=== PATIENT | female | born 1940 | race Caucasian/White ===

== ENCOUNTER 2018-06-20 15:05 | Emergency (ER) | payer OTHER, MEDICARE ==
--- OUTSIDE RECORDS SUMMARY | 2018-06-20 15:07 | XMS REPORT | Clinical Summary ---
:1940 Author Organization [facility] Address [address] [place] [address] Care Team Providers Name Role Phone Pedro Prajapati MD Primary Care Provider Allergies Active Allergy Reactions Severity Noted Date Comments Codeine 08/06/2016 Erythromycin 08/06/2016 Lisinopril 08/06/2016 Medications Medication Sig Dispensed Refills Start Date End Date Status ALPRAZolam (XANAX) 0.25 Take 0.25 mg 0 Active MG tablet by mouth nightly as needed for anxiety. PARoxetine (PAXIL) 20 MG 0 06/09/2018 Active tablet levothyroxine 0 04/10/2018 Active (SYNTHROID, LEVOXYL) 112 mcg tablet cholecalciferol, vitamin Take 1,000 0 Active D3, (VITAMIN D3) 1,000 Units by unit tablet mouth. aspirin (ECOTRIN) 81 MG Take 81 mg 0 Active enteric coated tablet by mouth. ascorbic acid, vitamin Take 1,000 0 Active C, (VITAMIN C) 1000 MG mg by mouth. tablet SILICON DIOXIDE, BULK, Take 1 0 Active MISC tablet by mouth. hydroCHLOROthiazide Take 1 90 tablet 3 06/09/2018 Active (HYDRODIURIL) 25 MG tablet (25 tablet mg total) by mouth daily. pravastatin (PRAVACHOL) Take 1 90 tablet 3 06/09/2018 Active 40 MG tablet tablet (40 mg total) by mouth daily. losartan (COZAAR) 100 MG Take 1 30 tablet 1 06/09/2018 06/09/20 Active tabletIndications: SOB tablet (100 19 (shortness of breath), mg total) by Coronary artery disease mouth daily. involving [place] coronary artery of [place] heart without angina pectoris ezetimibe (ZETIA) 10 mg Take 1 90 tablet 3 08/06/2016 06/09/20 Discontinued tablet tablet (10 18 mg total) by mouth daily. hydroCHLOROthiazide TAKE 1 90 tablet 3 03/31/2017 05/12/20 Discontinued (HYDRODIURIL) 25 MG TABLET BY 18 tablet MOUTH DAILY pravastatin (PRAVACHOL) TAKE 1 90 tablet 3 03/31/2017 05/12/20 Discontinued 40 MG tablet TABLET BY 18 MOUTH DAILY losartan (COZAAR) 50 MG TAKE 1 90 tablet 3 03/31/2017 04/27/20 Discontinued tablet TABLET BY 18 MOUTH DAILY losartan (COZAAR) 50 MG Take 1 30 tablet 0 04/27/2018 05/12/20 Discontinued tablet tablet (50 18 mg total) by mouth daily. losartan (COZAAR) 50 MG Take 1 30 tablet 0 05/12/2018 06/09/20 Discontinued tablet tablet (50 18 mg total) by mouth daily. pravastatin (PRAVACHOL) Take 1 30 tablet 0 05/12/2018 06/09/20 Discontinued 40 MG tablet tablet (40 18 mg total) by mouth daily. hydroCHLOROthiazide Take 1 30 tablet 0 05/12/2018 06/09/20 Discontinued (HYDRODIURIL) 25 MG tablet (25 18 tablet mg total) by mouth daily. losartan (COZAAR) 100 MG Take 1 90 tablet 3 06/09/2018 06/09/20 Discontinued tabletIndications: SOB tablet (100 18 (shortness of breath), mg total) by Coronary artery disease mouth daily. involving [place] coronary artery of [place] heart without angina pectoris Active Problems Problem Noted Date Coronary artery disease involving [place] coronary artery of [place] heart 06/09 without angina pectoris Hx of CABG 08/06/2016 Hyperlipidemia 08/06/2016 Essential hypertension 08/06/2016 SOB (shortness of breath) 08/06/2016 Encounters Date Type Specialty Care Team Description 06/09/2018 Office Visit Cardiology Donovan Romano MD Coronary artery disease involving [place] coronary artery of [place] heart without angina pectoris (Primary Dx); SOB (shortness of breath); Hx of CABG 05/12/2018 Refill Cardiology Aniyah Voss Med Refill LYNN 04/27/2018 Refill Cardiology Destiny Kendall MA Med Refill 04/27/2018 Refill Cardiology Destiny Kendall MA Med Refill after 06/19/2017 Family History Relation Name Status Comments Father Mother Social History Tobacco Use Types Packs/Day Years Used Date Former Smoker Smokeless Tobacco: Never Used Sex Assigned at Date Recorded Not on file Job Start Date Occupation Industry Not on file Not on file Not on file Travel History Travel Start Travel End No recent travel history available. Last Filed Vital Signs Vital Sign Reading Time Taken Blood Pressure 160/70 06/09/2018 3:34 PM COMMUNITY SERVICES COORDINATOR Pulse 67 06/09/2018 3:34 PM COMMUNITY SERVICES COORDINATOR Temperature - - Respiratory Rate - - Oxygen Saturation - - Inhaled Oxygen Concentration - - Weight 83.9 kg (185 lb) 06/09/2018 3:34 PM COMMUNITY SERVICES COORDINATOR Height 165.1 cm (5' 5") 06/09/2018 3:34 PM COMMUNITY SERVICES COORDINATOR Body Mass Index 30.79 06/09/2018 3:34 PM COMMUNITY SERVICES COORDINATOR Plan of Treatment Date Type Specialty Care Team Description 06/30/2018 Appointment Procedural Cardiology 12/08/2018 Office Visit Cardiology Donovan Romano MD [address] [address] Health Maintenance Due Date Last Done Comments SHINGLES VACCINES (1 of 2) 1991 PNEUMOCOCCAL POLYSACCHARIDE VACCINE AGE 65 AND OVER 2006 PNEUMOCOCCAL-13 2006 INFLUENZA VACCINE 01/21/2018 Procedures Procedure Name Priority Date/Time Associated Diagnosis Comments ECG 12-LEAD Routine 06/09/2018 3:34 PM SOB (shortness of Results for this COMMUNITY SERVICES COORDINATOR breath) procedure are in the results section. after 06/19/2017 Results ECG 12 lead (06/09/2018 3:34 PM COMMUNITY SERVICES COORDINATOR) Ventricular rate 64 [facility] Atrial rate 64 [facility] AL interval 142 [facility] QRSD interval 92 [facility] QT interval 396 [facility] QTC interval 408 [facility] P axis 1 70 [facility] QRS axis 1 36 [facility] T wave axis 78 [facility] MUSE EKG impression Normal sinus rhythm-Normal ECG-In automated [facility] M[facility] comparison with ECG of 06-AUG-2016 08:15,-No significant change was found- Narrative Performed At Performing Organization Address City/State/Zipcode Phone Number [facility] MUSE [address] [place] [address] after 06/19/2017 Insurance Payer Benefit Plan / Group Subscriber ID Type Phone Address AARP AARP SUPPLEMENT xxxxxxxxxxx Commercial MEDICARE MEDICARE PART A AND B xxxxxxxxxx Medicare [place] [place] [address] (Home) [address] [place] [address] Advance Directives Patient has advance care planning documents on file. For more information, please contact:Jewel Walker[address] [place] [address]
[2018-06-20 16:52] LABS: Urine Blood TRACE (NEG); Urine Glucose NEGATIVE (NEG); Urine Protein NEGATIVE (NEG)
--- NOTE | 2018-06-20 17:09 | RAD REPORT ---
EXAM DESCRIPTION: RAD - Chest Pa And Lat (2 Views) - 06/20/2018 5:03 pm CLINICAL HISTORY: Cough and congestion COMPARISON: July 2015 TECHNIQUE: PA and lateral views of the chest were obtained. FINDINGS: The lungs are fibrotic as a baseline. Plaquing changes are present similar to comparison. Interstitial disease is present and stable. Heart size is normal and central vasculature is within normal limits. No pleural effusion or pneumothorax seen. No acute bony finding noted. No aortic ab normality. IMPRESSION: Chronic pleural and parenchymal changes are present similar to July 2015. No acute chest finding confirmed.
--- NOTE | 2018-06-20 17:36 | EDPHYS ---
Physician Documentation [facility] Name: Edda Norwood Age: 78 yrs Sex: Female : 1940 Arrival Date: 06/20/2018 Time: 15:08 Bed 14 Private MD: Pedro Prajapati ED Physician Arelis Wooten HPI: 06/20 16:44 This 78 yrs old Female presents to ER via Ambulatory with complaints of Flu kb Symptoms. 16:44 The patient or guardian reports cough, that is intermittent, described as mild, with no kb sputum, flu symptoms, arthralgias, myalgias. Onset: The symptoms/episode began/occurred 3 day(s) ago. Severity of symptoms: At their worst the symptoms were moderate, in the emergency department the symptoms are unchanged. Modifying factors: The symptoms are alleviated by nothing, the symptoms are aggravated by nothing. Associated signs and symptoms: Pertinent positives: sore throat, "scratchy throat", Pertinent negatives: chest pain, diarrhea, ear ache, fever, nausea, sore throat, vomiting. The patient has not experienced similar symptoms in the past. The patient has been recently seen by a physician: the patient's primary care provider, 18 day(s) ago, with similar presenting complaints, and apparently given a diagnosis of Bronchitis and UTI, was given a prescription for antibiotics. 16:44 Pt reports body aches, soreness to sides of neck (no meningismus), cough, soreness, kb scratchy throat for 3 days. States she had same symptoms for approx 6 days at the beginning of the month, saw Dr Prajapati and was placed on Augmentin for 6 days for Bronchitis and UTI. Reports the symptoms resolved after the antibiotics but returned on . . Historical: - Allergies: 15:20 Erythromycin; sv - PMHx: 15:20 Hypertension; Thyroid problem; High Cholesterol; sv - PSHx: 15:20 Bypass; Hysterectomy; Thyroidectomy; sv - Immunization history:: Flu vaccine is up to date. - Social history:: Smoking status: Patient/guardian denies using tobacco. - Ebola Screening: : No symptoms or risks identified at this time. ROS: 16:43 ENT: Negative for injury, pain, and discharge, Neck: Negative for injury, pain, and kb swelling, Cardiovascular: Negative for chest pain, palpitations, and edema, Abdomen/GI: Negative for abdominal pain, nausea, vomiting, diarrhea, and constipation, Back: Negative for injury and pain, MS/Extremity: Negative for injury and deformity, Skin: Negative for injury, rash, and discoloration, Neuro: Negative for headache, weakness, numbness, tingling, and seizure. 16:43 Constitutional: Positive for body aches, malaise, Negative for chills, fatigue, fever, poor PO intake, weight loss. 16:43 Respiratory: Positive for cough, Negative for dyspnea on exertion, hemoptysis, orthopnea, pleurisy, shortness of breath, sputum production, wheezing. Exam: 16:43 Constitutional: This is a well developed, well nourished patient who is awake, alert, kb and in no acute distress. Head/Face: Normocephalic, atraumatic. ENT: Nares patent. No nasal discharge, no septal abnormalities noted. Tympanic membranes are normal and external auditory canals are clear. Oropharynx with no redness, swelling, or masses, exudates, or evidence of obstruction, uvula midline. Mucous membranes moist. Neck: Trachea midline, no thyromegaly or masses palpated, and no cervical lymphadenopathy. Supple, full range of motion without nuchal rigidity, or vertebral point tenderness. No Meningismus. Chest/axilla: Normal chest wall appearance and motion. Nontender with no deformity. No lesions are appreciated. Cardiovascular: Regular rate and rhythm with a normal S1 and S2. No gallops, murmurs, or rubs. Normal PMI, no JVD. No pulse deficits. Respiratory: Lungs have equal breath sounds bilaterally, clear to auscultation and percussion. No rales, rhonchi or wheezes noted. No increased work of breathing, no retractions or nasal flaring. Abdomen/GI: Soft, non-tender, with normal bowel sounds. No distension or tympany. No guarding or rebound. No evidence of tenderness throughout. Skin: Warm, dry with normal turgor. Normal color with no rashes, no lesions, and no evidence of cellulitis. MS/ Extremity: Pulses equal, no cyanosis. Neurovascular intact. Full, normal range of motion. Neuro: Awake and alert, GCS 15, oriented to person, place, time, and situation. Cranial nerves II-XII grossly intact. Motor strength 5/5 in all extremities. Sensory grossly intact. Cerebellar exam normal. Normal gait. Vital Signs: 15:20 BP 146 / 74; Pulse 74; Resp 18; Temp 98.5; Pulse Ox 99% ; Weight 81.65 kg; Height 5 ft. sv 6 in. (167.64 cm); Pain 5/10; 15:20 Body Mass Index 29.05 (81.65 kg, 167.64 cm) sv MDM: 16:12 Patient medically screened. kb 16:43 Data reviewed: vital signs, nurses notes. Data interpreted: Pulse oximetry: on room air kb is 99 %. Interpretation: normal. 17:11 Counseling: I had a detailed discussion with the patient and/or guardian regarding: the kb historical points, exam findings, and any diagnostic results supporting the discharge/admit diagnosis, lab results, radiology results, the need for outpatient follow up, a family practitioner, to return to the emergency department if symptoms worsen or persist or if there are any questions or concerns that arise at home. 17:27 ED course: Diagnostic results explained to patient, negative flu and strep tests, CXR kb showed no acute findings including pneumonia, urine test is negative for UTI. Based on HPI and physical exam, illness is viral in etiology. Pt asked "Are you going to do any blood work?" I educated pt that blood work was not clinically indicated based on exam findings, vital signs WNL, HPI and diagnostic results. Offered to do lab work, but pt stated "No, I will just go to my doctor." Pt seemed upset that labs were not completed, so I offered a second time to do them, but pt said no, told "let's just go," and walked out of ED. . 06/20 15:32 Order name: Influenza Screen (A ; Complete Time: 16:32 EDNJ 06/20 15:32 Order name: Group A Streptococcus Rapid Sc; Complete Time: 16:16 EDNJ 06/20 15:34 Order name: Urine Dipstick--Ancillary (enter results); Complete Time: 16:58 eb 06/20 16:16 Order name: Throat Culture EDNJ 06/20 15:40 Order name: Urine Dipstick-Ancillary (obtain specimen); Complete Time: 15:40 sv 06/20 16:29 Order name: Chest Pa And Lat (2 Views) XRAY; Complete Time: 17:11 kb Administered Medications: No medications were administered Disposition: 17:23 Co-signature as Attending Physician, Arelis Wooten MD. ma2 Disposition: 06/20/18 17:35 Discharged to Home. Impression: Acute upper respiratory infection, unspecified. - Condition is Stable. - Discharge Instructions: Upper Respiratory Infection, Adult, [id number]. - Medication Reconciliation Form, Thank You Letter, Antibiotic Education, Prescription Opioid Use form. - Follow up: Emergency Department; When: As needed; Reason: Worsening of condition. Follow up: Private Physician; When: 2 - 3 days; Reason: Recheck today's complaints, Continuance of care, Re-evaluation by your physician. Signatures: Dispatcher [employer] EDMS Hollie Mahajan, NICOLE-C ELEVATOR ADJUSTER-Kathy Love RN RN aj1 Azra Head RN RN sv Arelis Wooten MD MD ma2 Corrections: (The following items were deleted from the chart) 16:52 15:57 Influenza Screen (A \\T\\ B)+BA.LAB.BRZ ordered. EDMS EDMS 16:52 15:57 Group A Streptococcus Rapid Sc+BA.LAB.BRZ ordered. EDNJ EDMS 17:21 16:44 Associated signs and symptoms: Pertinent positives: sore throat, Pertinent kb negatives: chest pain, diarrhea, ear ache, fever, nausea, sore throat, vomiting, kb 17:21 16:44 The patient has not recently seen a physician, kb kb 17:37 17:35 06/20/2018 17:35 Discharged to Home. Impression: Acute upper respiratory aj1 infection, unspecified. Condition is Stable. Forms are Medication Reconciliation Form, Thank You Letter, Antibiotic Education, Prescription Opioid Use. Follow up: Emergency Department; When: As needed; Reason: Worsening of condition. Follow up: Private Physician; When: 2 - 3 days; Reason: Recheck today's complaints, Continuance of care, Re-evaluation by your physician. kb
--- NOTE | 2018-06-20 17:36 | ER ---
Nurse's Notes [facility] Name: Edda Norwood Age: 78 yrs Sex: Female : 1940 Arrival Date: 06/20/2018 Time: 15:08 Bed 14 Private MD: Pedro Prajapati Diagnosis: Acute upper respiratory infection, unspecified Presentation: 06/20 15:17 Presenting complaint: Patient states: sore throat, headache, fever, body and neck sv soreness, cough since . Transition of care: patient was not received from another setting of care. Onset of symptoms was June 18, 2018. Care prior to arrival: None. 15:17 Method Of Arrival: Ambulatory sv 15:17 Acuity: ARLETTE 3 sv 16:45 Risk Assessment: Do you want to hurt yourself or someone else? Patient reports no aj1 desire to harm self or others. Initial Sepsis Screen: Does the patient meet any 2 criteria? No. Patient's initial sepsis screen is negative. Does the patient have a suspected source of infection? Yes: Productive cough/pneumonia. Triage Assessment: 15:24 General: Appears in no apparent distress. ill, Behavior is calm, cooperative, sv appropriate for age. Pain: Complains of pain in "all over" Pain currently is 5 out of 10 on a pain scale. Quality of pain is described as sore. Neuro: Level of Consciousness is awake, alert, obeys commands, Oriented to person, place, time, situation, Moves all extremities. Full function. Respiratory: Reports cough that is non-productive, pain with cough Respiratory effort is even, unlabored, Respiratory pattern is regular, symmetrical. Historical: - Allergies: 15:20 Erythromycin; sv - PMHx: 15:20 Hypertension; Thyroid problem; High Cholesterol; sv - PSHx: 15:20 Bypass; Hysterectomy; Thyroidectomy; sv - Immunization history:: Flu vaccine is up to date. - Social history:: Smoking status: Patient/guardian denies using tobacco. - Ebola Screening: : No symptoms or risks identified at this time. Screenin:41 Abuse screen: Denies threats or abuse. Denies injuries from another. Nutritional aj1 screening: No deficits noted. Tuberculosis screening: No symptoms or risk factors identified. 17:35 Fall Risk None identified. aj1 Assessment: 16:41 General: Appears in no apparent distress. uncomfortable, Behavior is calm, cooperative, aj1 appropriate for age. Neuro: Level of Consciousness is awake, alert, obeys commands. Cardiovascular: Patient's skin is warm and dry. Respiratory: Reports cough that is Airway is patent Respiratory effort is even, unlabored, Respiratory pattern is. GI: No signs and/or symptoms were reported involving the gastrointestinal system. : No signs and/or symptoms were reported regarding the genitourinary system. Derm: No signs and/or symptoms reported regarding the dermatologic system. Skin is pink, warm \\T\\ dry. normal. Musculoskeletal: No signs and/or symptoms reported regarding the musculoskeletal system. Circulation, motion, and sensation intact. 17:34 Reassessment: Patient and her were seen walking out of the emergency room. aj1 Notified Sendy Mahajan NP. Vital Signs: 15:20 BP 146 / 74; Pulse 74; Resp 18; Temp 98.5; Pulse Ox 99% ; Weight 81.65 kg; Height 5 ft. sv 6 in. (167.64 cm); Pain 5/10; 15:20 Body Mass Index 29.05 (81.65 kg, 167.64 cm) sv ED Course: 15:08 Patient arrived in ED. sb2 15:09 Pedro Prajapati MD is Private Physician. sb2 15:19 Triage completed. sv 15:23 Arm band placed on Patient placed in waiting room, Patient notified of wait time. sv 16:12 Hollie Mahajan FNP-C is [facility]. kb 16:12 Arelis Wooten MD is Attending Physician. kb 16:16 Kathy Alejandra, RN is Primary Nurse. aj1 16:41 Patient has correct armband on for positive identification. Bed in low position. Call aj1 light in reach. Side rails up X 1. 16:41 No provider procedures requiring assistance completed. aj1 16:57 X-ray completed. Patient tolerated procedure well. sg4 16:57 Chest Pa And Lat (2 Views) XRAY In Process Unspecified. EDMS 17:35 Patient did not have IV access during this emergency room visit. aj1 Administered Medications: No medications were administered Outcome: 17:35 Discharge ordered by . kb 17:35 Discharged to home ambulatory, with family. aj1 17:35 Condition: good 17:35 Discharge instructions given to noone, patient walked out of ER prior to receiving discharge instructions 17:37 Patient left the ED. aj1 Signatures: Dispatcher [employer] EDHollie Shields, VIVEKC BEHAVIOR SUPPORT SPECIALIST-Kathy Love RN RN aj1 Azra Head RN RN sv Riri Dubon2 Vani Rowe sg4 Corrections: (The following items were deleted from the chart) 15:24 15:17 Presenting complaint: Patient states: sore throat, headache, body and neck sv soreness, cough since . sv
== END 2018-06-20 17:37 | disposition home or self-care (01) ==
LOC: ER 15:05
DX: J06.9 Acute upper respiratory infection, unspecified (principal); Z87.440 Personal history of urinary (tract) infections
CPT/HCPCS: 71046; 81003; 87070; 87081; 87804; 99283

== ENCOUNTER 2018-11-03 16:55 | Inpatient (IN) | payer OTHER, MEDICARE ==
--- OUTSIDE RECORDS SUMMARY | 2018-11-03 17:01 | XMS REPORT | Clinical Summary ---
:1940 Author Organization [facility] Address [address] [place] [address] Care Team Providers Name Role Phone Pedro [...] by Coronary artery disease mouth daily. involving [place] coronary artery of [place] heart without angina pectoris ezetimibe (ZETIA) 10 [...] by Coronary artery disease mouth daily. involving [place] coronary artery of [place] heart without angina pectoris Active Problems Problem Noted Date Coronary artery disease involving [place] coronary artery of [place] heart 06/09 without angina pectoris Hx of CABG 08/06/2016 Hyperlipidemia 08/06/2016 Essential hypertension 08/06/2016 SOB (shortness of breath) 08/06/2016 Encounters Date Type Specialty Care Team Description 07/06/2018 Orders Only Cardiology Donovan Romano MD 06/09/2018 Office Visit Cardiology Donovan Romano MD Coronary artery disease involving [place] coronary artery of [place] heart without angina pectoris (Primary Dx); SOB (shortness of breath); Hx of CABG 05/12/2018 Refill Cardiology Aniyah oVss Med Refill MA 04/27/2018 Refill Cardiology Destiny Kendall MA Med Refill 04/27/2018 Refill Cardiology Destiny Kendall MA Med Refill after 11/02/2017 Family History Relation Name Status Comments Father [...] Taken Blood Pressure 160/70 06/09/2018 3:34 PM SERVICE BAR CASHIER Pulse 67 06/09/2018 3:34 PM SERVICE BAR CASHIER Temperature - - Respiratory Rate - - Oxygen Saturation - - Inhaled Oxygen Concentration - - Weight 83.9 kg (185 lb) 06/09/2018 3:34 PM SERVICE BAR CASHIER Height 165.1 cm (5' 5") 06/09/2018 3:34 PM SERVICE BAR CASHIER Body Mass Index 30.79 06/09/2018 3:34 PM SERVICE BAR CASHIER Plan of Treatment Date Type Specialty Care Team Description 12/08/2018 Office Visit Cardiology Donovan Romano MD [address] [address] Health Maintenance Due Date Last Done Comments SHINGLES VACCINES (#1) 1991 65+ PNEUMOCOCCAL VACCINE (1 of 2 - PCV13) 2006 PNEUMOCOCCAL POLYSACCHARIDE VACCINE AGE 65 AND OVER 2006 INFLUENZA VACCINE 01/21/2019 Procedures Procedure Name Priority Date/Time Associated Comments Diagnosis NM MYOCARDIAL Routine 07/05/2018 PERFUSION ECG 12-LEAD Routine 06/09/2018 3:34 PM SOB (shortness of Results for this SERVICE BAR CASHIER breath) procedure are in the results section. after 11/02/2017 Results Nm myocardial perfusion (07/05/2018) Narrative Performed At ECG 12 lead (06/09/2018 3:34 PM SERVICE BAR CASHIER) Ventricular rate 64 [facility] Atrial rate 64 [facility] [place] interval 142 [facility] QRSD interval 92 [facility] QT interval 396 [facility] QTC interval 408 [facility] P axis 1 70 [facility] QRS axis 1 36 [facility] T wave axis 78 [facility] EKG impression Normal sinus rhythm-Normal ECG-In automated [facility] M[facility] comparison with ECG of 06-AUG-2016 08:15,-No significant change was found- Narrative Performed At Performing Organization Address City/State/Zipcode Phone Number [facility] MUSE [address] [place] [address] after 11/02/2017 Insurance Payer Benefit Plan / Group Subscriber ID Type Phone Address AARP AARP SUPPLEMENT xxxxxxxxxxx Commercial MEDICARE MEDICARE PART A AND B xxxxxxxxxx Medicare [place] [place] [address] (Home) [address] [place] [address] Advance Directives Patient has advance care planning documents on file. For more information, please contact:Jewel Walker[address] [place] [address]
--- NOTE | 2018-11-03 18:13 | EDPHYS ---
Physician Documentation [facility] Name: Edda Norwood Age: 78 yrs Sex: Female : 1940 Arrival Date: 11/03/2018 Time: 16:57 Bed 30 Private MD: Pedro Prajapati ED Physician Oleg Mccormick HPI: 11/03 17:36 This 78 yrs old Female presents to ER via Ambulatory with complaints of jaswant Cough, Shortness Of Breath. 17:36 The patient or guardian reports cough, described as mild, difficulty breathing. Onset: jaswant The symptoms/episode began/occurred 1 month(s) ago. Severity of symptoms: At their worst the symptoms were mild, moderate, in the emergency department the symptoms are unchanged. Modifying factors: The symptoms are alleviated by nothing, the symptoms are aggravated by nothing. Associated signs and symptoms: The patient has no apparent associated signs or symptoms. The patient has not experienced similar symptoms in the past. Historical: - Allergies: 17:07 Erythromycin; aj1 - PMHx: 17:07 High Cholesterol; Hypertension; Thyroid problem; aj1 - Immunization history:: Flu vaccine is up to date. - Social history:: Smoking status: Patient/guardian denies using tobacco. - Ebola Screening: : Patient denies travel to an Ebola-affected area in the 21 days before illness onset. - Family history:: not pertinent. ROS: 17:36 Constitutional: Negative for fever, chills, and weight loss, Eyes: Negative for injury, jaswant pain, redness, and discharge, ENT: Negative for injury, pain, and discharge, Neck: Negative for injury, pain, and swelling, Cardiovascular: Negative for chest pain, palpitations, and edema, Abdomen/GI: Negative for abdominal pain, nausea, vomiting, diarrhea, and constipation, Back: Negative for injury and pain, : Negative for injury, bleeding, discharge, and swelling, MS/Extremity: Negative for injury and deformity, Skin: Negative for injury, rash, and discoloration, Neuro: Negative for headache, weakness, numbness, tingling, and seizure, Psych: Negative for depression, anxiety, suicide ideation, homicidal ideation, and hallucinations, Allergy/Immunology: Negative for hives, rash, and allergies, Endocrine: Negative for neck swelling, polydipsia, polyuria, polyphagia, and marked weight changes, Hematologic/Lymphatic: Negative for swollen nodes, abnormal bleeding, and unusual bruising. 17:36 Respiratory: Positive for cough, shortness of breath, wheezing, expiratory. Exam: 17:36 Constitutional: This is a well developed, well nourished patient who is awake, alert, jaswant and in no acute distress. Head/Face: Normocephalic, atraumatic. Eyes: Pupils equal round and reactive to light, extra-ocular motions intact. Lids and lashes normal. Conjunctiva and sclera are non-icteric and not injected. Cornea within normal limits. Periorbital areas with no swelling, redness, or edema. ENT: Nares patent. No nasal discharge, no septal abnormalities noted. Tympanic membranes are normal and external auditory canals are clear. Oropharynx with no redness, swelling, or masses, exudates, or evidence of obstruction, uvula midline. Mucous membranes moist. Neck: Trachea midline, no thyromegaly or masses palpated, and no cervical lymphadenopathy. Supple, full range of motion without nuchal rigidity, or vertebral point tenderness. No Meningismus. Chest/axilla: Normal chest wall appearance and motion. Nontender with no deformity. No lesions are appreciated. Cardiovascular: Regular rate and rhythm with a normal S1 and S2. No gallops, murmurs, or rubs. Normal PMI, no JVD. No pulse deficits. Abdomen/GI: Soft, non-tender, with normal bowel sounds. No distension or tympany. No guarding or rebound. No evidence of tenderness throughout. Back: No spinal tenderness. No costovertebral tenderness. Full range of motion. Female : Normal external genitalia. Skin: Warm, dry with normal turgor. Normal color with no rashes, no lesions, and no evidence of cellulitis. MS/ Extremity: Pulses equal, no cyanosis. Neurovascular intact. Full, normal range of motion. Neuro: Awake and alert, GCS 15, oriented to person, place, time, and situation. Cranial nerves II-XII grossly intact. Motor strength 5/5 in all extremities. Sensory grossly intact. Cerebellar exam normal. Normal gait. Psych: Awake, alert, with orientation to person, place and time. Behavior, mood, and affect are within normal limits. 17:36 Respiratory: mild respiratory distress is noted, Respirations: labored breathing, that is mild, Breath sounds: bronchial sounds, that are mild, decreased breath sounds, rhonchi. 17:40 Musculoskeletal/extremity: DVT Exam: No signs of deep vein thrombosis. no pain, no jaswant swelling, no tenderness, negative Homans' sign noted on exam, no appreciated bluish discoloration, no erythema, no increased warmth. Vital Signs: 17:07 BP 146 / 87; Pulse 76; Resp 18; Temp 98.2(TE); Pulse Ox 96% on R/A; Weight 90.26 kg aj1 (R); Height 5 ft. 5 in. (165.10 cm) (R); Pain 0/10; 18:10 BP 124 / 52; Pulse 75; Resp 16 S; Pulse Ox 95% on Nebulizer Mask; ca1 18:45 BP 123 / 54; Pulse 78; Resp 14; Pulse Ox 92% on R/A; ca1 19:10 BP 124 / 55; Pulse 78; Resp 16; Temp 98.2(O); Pulse Ox 96% on R/A; ca1 19:37 BP 127 / 53; Pulse 81; Resp 16 S; Temp 98.1(O); Pulse Ox 100% on Nebulizer Mask; ca1 17:07 Body Mass Index 33.11 (90.26 kg, 165.10 cm) aj1 MDM: 17:17 Patient medically screened. [facility] 17:40 Data reviewed: vital signs, nurses notes, lab test result(s), EKG, radiologic studies, [facility] plain films. 11/03 17:35 Order name: Basic Metabolic Panel [facility] 11/03 17:35 Order name: CBC with Diff [facility] 11/03 17:35 Order name: LFT's; Complete Time: 18:41 [facility] 11/03 17:35 Order name: Magnesium; Complete Time: 18:41 [facility] 11/03 17:35 Order name: NT PRO-BNP; Complete Time: 18:41 [facility] 11/03 17:35 Order name: PT-INR; Complete Time: 18:41 [facility] 11/03 17:35 Order name: Troponin (emerg Dept Use Only); Complete Time: 18:41 [facility] 11/03 17:35 Order name: Lipase; Complete Time: 18:41 [facility] 11/03 17:35 Order name: Blood Culture Adult (2) [facility] 11/03 17:35 Order name: Influenza Screen (a \T\ B); Complete Time: 18:41 [facility] 11/03 17:35 Order name: Urine Culture 11/03 17:35 Order name: Procalcitonin; Complete Time: 19:22 [facility] 11/03 17:36 Order name: Basic Metabolic Panel; Complete Time: 18:41 [facility] 11/03 17:36 Order name: CBC with Automated Diff; Complete Time: 18:41 [facility] 11/03 17:35 Order name: XRAY Chest (1 view); Complete Time: 19:22 [facility] 11/03 17:35 Order name: EKG; Complete Time: 17:37 [facility] 11/03 17:35 Order name: Cardiac monitoring; Complete Time: 18:54 [facility] 11/03 17:35 Order name: EKG - Nurse/Tech; Complete Time: 18:54 [facility] 11/03 17:35 Order name: IV Saline Lock; Complete Time: 18:58 [facility] 11/03 17:35 Order name: Labs collected and sent; Complete Time: 18:58 [facility] 11/03 17:35 Order name: O2 Per Protocol; Complete Time: 18:58 [facility] 11/03 18:11 Order name: CT Chest For PE Angio [facility] 11/03 18:21 Order name: TSH bd 11/03 18:31 Order name: Urine Dipstick--Ancillary (enter results) 11/03 18:37 Order name: Urine Dipstick-Ancillary; Complete Time: 18:41 [facility] 11/03 19:31 Order name: CT; Complete Time: 19:34 [facility] 11/03 17:35 Order name: O2 Sat Monitoring; Complete Time: 18:58 [facility] 11/03 17:35 Order name: Urine Dipstick-Ancillary (obtain specimen); Complete Time: 18:58 [facility] Administered Medications: 17:58 Drug: SOLU-Medrol 125 mg Route: IVP; Site: right antecubital; ca1 19:39 Follow up: Response: No adverse reaction; Marked relief of symptoms ca1 17:58 Drug: Xopenex 3.75 mg Route: Inhalation; ca1 18:13 Drug: levofloxacin 500 mg Volume: 100 ml; Route: IVPB; Infused Over: 60 mins; Site: ca1 right antecubital; 19:39 Follow up: Response: No adverse reaction; IV Status: Completed infusion; IV Intake: aj 100ml 19:40 Follow up: Response: No adverse reaction; IV Status: Completed infusion ca1 18:50 Drug: AtroVENT Aerosol 0.5 mg Route: Inhalation; ca1 19:32 Drug: AtroVENT Aerosol 0.5 mg Route: Inhalation; aj Disposition: 11/03/18 18:13 Hospitalization ordered by Pedro Prajapati for Inpatient Admission. Preliminary diagnosis are Cough, Dyspnea, Weakness, Malaise and fatigue. - Bed requested for Telemetry/MedSurg (Inpatient). - Status is Inpatient Admission. ca1 - Condition is Fair. - Problem is new. - Symptoms have improved. UTI on Admission? No Signatures: Dispatcher [employer] EDMS Kathy Alejandra RN RN aj1 Lennie Duff RN RN dw Myers, Amanda, RN RN aj Anderson, Corey, MD MD cha Acob, Cheryl, RN RN ca1 Corrections: (The following items were deleted from the chart) 18:48 18:13 Hospitalization Ordered by Pedro Prajapati MD for Inpatient Admission. Preliminary dw diagnosis is Cough; Dyspnea; Weakness; Malaise and fatigue. Bed requested for Telemetry/MedSurg (Inpatient). Status is Inpatient Admission. Condition is Fair. Problem is new. Symptoms have improved. UTI on Admission? No. jaswant 20:08 18:48 11/03/2018 18:13 Hospitalization Ordered by Pedro Prajapati MD for Inpatient dw Admission. Preliminary diagnosis is Cough; Dyspnea; Weakness; Malaise and fatigue. Bed requested for Telemetry/MedSurg (Inpatient). Status is Inpatient Admission. Condition is Fair. Problem is new. Symptoms have improved. UTI on Admission? No. dw 20:16 20:08 11/03/2018 18:13 Hospitalization Ordered by Pedro Prajapati MD for Inpatient ca1 Admission. Preliminary diagnosis is Cough; Dyspnea; Weakness; Malaise and fatigue. Bed requested for Telemetry/MedSurg (Inpatient). Status is Inpatient Admission. Condition is Fair. Problem is new. Symptoms have improved. UTI on Admission? No. dw
--- NOTE | 2018-11-03 18:13 | ER ---
Nurse's Notes [facility] Name: Edda Norwood Age: 78 yrs Sex: Female : 1940 Arrival Date: 11/03/2018 Time: 16:57 Bed 30 Private MD: Pedro Prajapati Diagnosis: Cough;Dyspnea;Weakness;Malaise and fatigue Presentation: 11/03 17:04 Presenting complaint: Patient states: "I've had a cough for at least 2 months and I am aj1 so tired, and it doesn't get any better. I get shortness of breath and sweat like a dog. If I do anything I'm just sweating or it wakes me up at night, and I just don't feel good. I feel like I'm weak and I just want to lay down. I went to Dr. Prajapati a month ago and told him I wasn't feeling good and he told me to take Zyrtec and I take it everyday abut Im still not better" Reports shortness of breath after a coughing spell or after walking. Transition of care: patient was not received from another setting of care. Onset of symptoms was August 2018. Risk Assessment: Do you want to hurt yourself or someone else? Patient reports no desire to harm self or others. Initial Sepsis Screen: Does the patient meet any 2 criteria? No. Patient's initial sepsis screen is negative. Does the patient have a suspected source of infection? No. Patient's initial sepsis screen is negative. Care prior to arrival: None. 17:04 Method Of Arrival: Ambulatory aj1 17:04 Acuity: ARLETTE 3 aj1 Triage Assessment: 17:07 General: Appears in no apparent distress. uncomfortable, Behavior is calm, cooperative, aj1 appropriate for age. Pain: Denies pain. Neuro: Level of Consciousness is awake, alert, obeys commands. Cardiovascular: Patient's skin is warm and dry. Respiratory: Reports shortness of breath on exertion Airway is patent Respiratory effort is even, unlabored, Respiratory pattern is regular, symmetrical, Onset: The symptoms/episode began/occurred 2 months ago, the patient has mild shortness of breath. Historical: - Allergies: 17:07 Erythromycin; aj1 - PMHx: 17:07 High Cholesterol; Hypertension; Thyroid problem; aj1 - Immunization history:: Flu vaccine is up to date. - Social history:: Smoking status: Patient/guardian denies using tobacco. - Ebola Screening: : Patient denies travel to an Ebola-affected area in the 21 days before illness onset. - Family history:: not pertinent. Screenin:15 Abuse screen: Denies threats or abuse. Denies injuries from another. Nutritional ca1 screening: No deficits noted. Tuberculosis screening: No symptoms or risk factors identified. Fall Risk IV access (20 points). Assessment: 17:15 General: Appears in no apparent distress. comfortable, Behavior is calm, cooperative, ca1 appropriate for age. General: Reports feeling ill for > 3 days. Pain: Denies pain. Neuro: Level of Consciousness is awake, alert, obeys commands, Oriented to person, place, time, situation. Cardiovascular: Heart tones S1 S2 present Capillary refill < 3 seconds Patient's skin is warm and dry. Rhythm is sinus rhythm. Respiratory: Reports shortness of breath on exertion since several weeks ago cough that is since 2 months ago Airway is patent Respiratory effort is even, unlabored, Respiratory pattern is regular, symmetrical, Breath sounds are clear bilaterally. GI: Abdomen is round non-distended, Bowel sounds present X 4 quads. Abd is soft and non tender X 4 quads. : No deficits noted. No signs and/or symptoms were reported regarding the genitourinary system. EENT: Reports nasal congestion. Derm: Skin is intact, is healthy with good turgor, Skin is pink, warm \\T\\ dry. Musculoskeletal: Circulation, motion, and sensation intact. Capillary refill < 3 seconds, Range of motion: intact in all extremities. 18:10 Reassessment: Patient appears in no apparent distress at this time. Patient and/or ca1 family updated on plan of care and expected duration. Pain level reassessed. Patient is alert, oriented x 3, equal unlabored respirations, skin warm/dry/pink. 19:00 Reassessment: Patient appears in no apparent distress at this time. Patient is alert, ca1 oriented x 3, equal unlabored respirations, skin warm/dry/pink. 19:44 Reassessment: Patient appears in no apparent distress at this time. Patient is alert, ca1 oriented x 3, equal unlabored respirations, skin warm/dry/pink. Vital Signs: 17:07 BP 146 / 87; Pulse 76; Resp 18; Temp 98.2(TE); Pulse Ox 96% on R/A; Weight 90.26 kg aj1 (R); Height 5 ft. 5 in. (165.10 cm) (R); Pain 0/10; 18:10 BP 124 / 52; Pulse 75; Resp 16 S; Pulse Ox 95% on Nebulizer Mask; ca1 18:45 BP 123 / 54; Pulse 78; Resp 14; Pulse Ox 92% on R/A; ca1 19:10 BP 124 / 55; Pulse 78; Resp 16; Temp 98.2(O); Pulse Ox 96% on R/A; ca1 19:37 BP 127 / 53; Pulse 81; Resp 16 S; Temp 98.1(O); Pulse Ox 100% on Nebulizer Mask; ca1 17:07 Body Mass Index 33.11 (90.26 kg, 165.10 cm) aj1 ED Course: 16:57 Patient arrived in ED. mr 16:57 Pedro Prajapati MD is Private Physician. mr 17:06 Triage completed. aj1 17:07 Arm band placed on Patient placed in an exam room. aj1 17:15 Patient has correct armband on for positive identification. Placed in gown. Bed in low ca1 position. Call light in reach. Side rails up X 1. monitor technician on. Pulse ox on. NIBP on. Warm blanket given. 17:17 Oleg Mccormick MD is Attending Physician. jaswant 17:34 Jennifer Rizzo, PATIENCE is Primary Nurse. ca1 17:50 Inserted saline lock: 20 gauge in right antecubital area, using aseptic technique. ca1 Blood collected. 17:50 First set of blood cultures drawn by me. ca1 17:52 XRAY Chest (1 view) In Process Unspecified. EDMS 18:10 Second set of blood cultures drawn by me. ca1 18:11 Pedro Prajapati MD is Hospitalizing Provider. jaswant 18:14 Radiology exam delayed due to lab results not completed at this time. (BUN/Creatinine). vm2 19:00 No provider procedures requiring assistance completed. Patient admitted, IV remains in ca1 place. Administered Medications: 17:58 Drug: SOLU-Medrol 125 mg Route: IVP; Site: right antecubital; ca1 19:39 Follow up: Response: No adverse reaction; Marked relief of symptoms ca1 17:58 Drug: Xopenex 3.75 mg Route: Inhalation; ca1 18:13 Drug: levofloxacin 500 mg Volume: 100 ml; Route: IVPB; Infused Over: 60 mins; Site: ca1 right antecubital; 19:39 Follow up: Response: No adverse reaction; IV Status: Completed infusion; IV Intake: aj 100ml 19:40 Follow up: Response: No adverse reaction; IV Status: Completed infusion ca1 18:50 Drug: AtroVENT Aerosol 0.5 mg Route: Inhalation; ca1 19:32 Drug: AtroVENT Aerosol 0.5 mg Route: Inhalation; aj Intake: 19:39 IV: 100ml; Total: 100ml. aj Outcome: 18:13 Decision to Hospitalize by Provider. jaswant 19:50 Admitted to Tele accompanied by tech, via wheelchair, room 408, on monitor, Report ca1 called to Derrick Greenwood RN 19:50 Condition: stable ca1 19:50 Instructed on the need for admit. 20:16 Patient left the ED. ca1 Signatures: Dispatcher [employer] EDKathy Valverde RN RN aj1 Myers, Amanda, RN RN aj Anderson, Corey, MD MD cha Rivera, Mary mr McGuire, [facility] Jennifer Rizzo RN RN ca1 Corrections: (The following items were deleted from the chart) 18:37 17:15 Cardiovascular: Heart tones S1 S2 present Capillary refill < 3 seconds Patient's ca1 skin is warm and dry. ca1 18:37 18:36 Reassessment: Patient appears in no apparent distress at this time. ca1 ca1
[2018-11-03 18:17] LABS: Absolute Lymphocytes (CBC) 2.2 K/uL (0.7-4.9); Absolute Monocytes 0.6 K/uL (0.1-1.3); Basophils % 0.8 % (0-1.3); Eosinophils % 7.6 % (0-4.4); Hematocrit 41.8 % (36.0-45.0); Lymphocytes % 35.4 % (15.3-44.8); MPV 9.1 fL (7.6-11.3); Monocytes % 9.1 % (3.3-12.3); Protime INR 0.98; RBC Red Blood Cell Count 4.55 M/uL (3.86-4.86)
[2018-11-03] MEDS ORDERED: IPRATROPIUM BROM 0.5MG/2.5ML ONE (18:27)
[2018-11-03] MEDS ORDERED: METHYLPREDNISOLONE 125 MG INJ ONE (18:27)
[2018-11-03] MEDS ORDERED: LEVALBUTEROL 1.25 MG/3 ML NEB ONE (18:28)
[2018-11-03] MEDS ORDERED: Levofloxacin500mg IV 500 MG/100 ML BAG IV ONE (18:28)
[2018-11-03 18:37] LABS: Urine Blood 1+ (NEG); Urine Glucose NEGATIVE (NEG); Urine Protein NEGATIVE (NEG); Urine pH 5.5 (5.0-7.0)
[2018-11-03 18:40] LABS: ALT/SGPT 24 U/L (12-78); AST/SGOT 16 U/L (15-37); Albumin 3.8 g/dL (3.4-5.0); Alkaline Phosphatase 75 U/L (45-117); BUN Blood Urea Nitrogen 27 mg/dL (7-18); Bicarbonate 28 mmol/L (21-32); Bilirubin Direct < 0.1 mg/dL (0-0.2); Bilirubin Total 0.4 mg/dL (0.2-1.0); Glucose Level 142 mg/dL (74-106); Lipase 151 U/L (73-393); Magnesium 2.2 mg/dL (1.8-2.4); NT PRO-BNP 282 pg/mL (<450); Potassium 3.9 mmol/L (3.5-5.1); Protein, Total 7.6 g/dL (6.4-8.2); Sodium Level 141 mmol/L (136-145); Troponin (Emerg Dept Use Only) < 0.02 ng/mL (0.0-0.045)
--- NOTE | 2018-11-03 18:42 | RAD REPORT ---
EXAM DESCRIPTION: RAD - Chest Single View - 11/03/2018 5:52 pm CLINICAL HISTORY: Cough and congestion COMPARISON: May 2018 TECHNIQUE: AP portable chest image was obtained 1749 hours . FINDINGS: No focal lung parenchymal process seen. Interstitial pattern is prominent but not clearly different from comparison. Right hemidiaphragm elevation again noted. Sternotomy wires remain place. Heart and vasculature are normal. No measurable pleural effusion and no pneumothorax. No acute bony a bnormality seen. No acute aortic findings suspected. IMPRESSION: No acute cardiopulmonary process. No significant change from comparison.
--- NOTE | 2018-11-03 19:30 | RAD REPORT ---
EXAM DESCRIPTION: CT - Chest For Pe Angio - 11/03/2018 7:11 pm CLINICAL HISTORY: Cough, shortness of breath, hypertension, chest pain COMPARISON: Chest film same date TECHNIQUE: Dynamically enhanced 3 mm thick images of the chest were obtained during administration o f approximately 150mL Isovue 370 IV contrast. Coronal and oblique MIP reconstruction images were gene rated and reviewed. Exam utilizes a protocol to evaluate the pulmonary arterial tree. All CT scans are performed using dose optimization technique as appropriate and may include automated exposure control or mA/KV adjustment according to patient size. FINDINGS: No pulmonary emboli are identified. Motion degradation limits far peripheral branch assess ment in each lung base. The aorta as imaged shows no acute or suspicious finding. No pericardial thickening or effusion. No mass or focal consolidation identified. Interstitial markings are prominent. Pleural nodularity in calcified pleural plaquing changes are present. No one large or dominant pleural based mass. No pleu ral effusion or pleural thickening. No mediastinal or hilar suspicious masses. No chest wall masses or abnormal axillary lymphadenopathy. IMPRESSION: No pulmonary emboli identified. Calcified and noncalcified pleural plaquing. No one dominant pleural based mass seen.
[2018-11-03] MEDS ORDERED: FAMOTIDINE 20 MG/2 ML VIAL IV SCH (21:14)
[2018-11-03] MEDS ORDERED: ONDANSETRON 4 MG/2 ML VIAL IV PRN (21:14)
[2018-11-03] MEDS ORDERED: MORPHINE 4 MG/ML SYR IV PRN (21:14)
[2018-11-03 21:22] VITALS: BMI 32.9
[2018-11-04] MEDS ORDERED: METHYLPREDNISOLONE 40 MG INJ IV SCH (01:00)
[2018-11-04 03:36] LABS: Absolute Lymphocytes (CBC) 0.4 K/uL (0.7-4.9); Absolute Monocytes 0.1 K/uL (0.1-1.3); Absolute Neutrophil 6.5 K/uL (1.8-8.0); Basophils % 0.1 % (0-1.3); Eosinophils % 0.1 % (0-4.4); Hematocrit 39.3 % (36.0-45.0); Lymphocytes % 6.1 % (15.3-44.8); Monocytes % 0.9 % (3.3-12.3); RBC Red Blood Cell Count 4.21 M/uL (3.86-4.86)
[2018-11-04 03:53] LABS: Potassium 3.9 mmol/L (3.5-5.1)
[2018-11-04 04:52] LABS: Blood Morphology Comment NOT SEEN (NOT SEEN); Platelet Estimate ADEQ
--- NOTE | 2018-11-04 08:38 | RAD REPORT ---
EXAM DESCRIPTION: RAD - Chest Single View - 11/04/2018 6:47 am CLINICAL HISTORY: Chest Pain Chest pain. COMPARISON: Chest Single View dated 11/03/2018; Chest Pa And Lat (2 Views) dated 06/20/2018; CHEST PA AND LAT 2 VIEW dated 08/14/2015; CHEST PA AND LAT 2 VIEW dated 11/29/2014 FINDINGS: Portable technique limits examination quality. The lungs are grossly clear. The heart is normal in size. No displaced fractures.Sternotomy wires. IMPRESSION: No acute intrathoracic process suspected.
[2018-11-04] MEDS: NA CHLORIDE 0.9% 1,000 ML IV SCH ×2 (09:25→17:07)
[2018-11-04] MEDS: DULERA 200/5 (MOMETASONE/FORMOTEROL) INHALER IH SCH ×2 (09:26→21:00)
[2018-11-04] MEDS: ASPIRIN EC 81 MG TAB PO SCH (09:27)
[2018-11-04] MEDS: predniSONE 20 MG TAB PO SCH (09:27)
[2018-11-04] MEDS: ENOXAPARIN 40 MG/0.4 ML SQ SCH (09:28)
--- NOTE | 2018-11-04 10:52 | EKG ---
Test Date: 2018-11-04 Test Time: 07:40:19 Inventory Specialist: MADAN MEASUREMENT RESULTS: Intervals: Rate: 79 ID: [id number] QRSD: 92 QT: 386 QTc: 442 Story: P: 75 ID: [id number] QRS: 47 T: 70 INTERPRETIVE STATEMENTS: Sinus rhythm with short ID Otherwise normal ECG Compared to ECG 11/03/2018 17:48:23 Short ID interval now present Electronically Signed On 11-04-18 10:52:04 CDT by Jerson German
--- NOTE | 2018-11-04 10:53 | EKG ---
Test Date: 2018-11-03 Test Time: 17:48:23 Graduate Student: ALEJO MEASUREMENT RESULTS: Intervals: Rate: 71 LA: 128 QRSD: 94 QT: 384 QTc: 417 [place]: P: 60 LA: 128 QRS: 33 T: 79 INTERPRETIVE STATEMENTS: Normal sinus rhythm Normal ECG Compared to ECG 07/23/2005 20:29:00 No significant changes Electronically Signed On 11-04-18 10:52:22 CDT by Jerson German
--- NOTE | 2018-11-04 12:21 | ECHO ---
HEIGHT: 5 ft 5 in WEIGHT: 198 lb 0 oz DATE OF STUDY: 11/04/[address]: Oleg Mccormick MD 2-DIMENSIONAL: YES M.MODE: YES DOPPLER: YES COLOR FLOW: YES TDS: NO PORTABLE: NO DEFINITY: NO BUBBLE STUDY: NO DIAGNOSIS: SHORTNESS OF BREATH CARDIAC HISTORY: CATHERIZATION: NO SURGERY: NO PROSTHETIC VALVE: NO PACEMAKER: NO MEASUREMENTS (cm) DIASTOLIC (NORMALS) SYSTOLIC (NORMALS) IVSd 1.1 (0.6-1.2) LA Diam (1.9-4.0) LVEF 61% LVIDd 4.3 (3.5-5.7) LVIDs 2.9 (2.0-3.5) %FS 32% LVPWd 1.2 (0.6-1.2) Ao Diam 3.0 (2.0-3.7) 2 DIMENSIONAL ASSESSMENT: RIGHT ATRIUM: NORMAL LEFT ATRIUM: DILATED RIGHT VENTRICLE: NORMAL LEFT VENTRICLE: NORMAL TRICUSPID VALVE: NORMAL MITRAL VALVE: LEAFLET AND ANNULAR THICKENING PULMONIC VALVE: NORMAL AORTIC VALVE: NORMAL PERICARDIAL EFFUSION: NONE AORTIC ROOT: NORMAL LEFT VENTRICULAR WALL MOTION: NORMAL DOPPLER/COLOR FLOW: MILD MITRAL AND TRICUSPID REGURGITATION. MILD PULMONARY HYPERTENSION. ESTIMTATED RIGHT VENTRICULAR SYSTOLIC PRESSURE 45mmHg. COMMENTS: NORMAL LEFT VENTRICULAR EJECTION FRACTION. DILATED LEFT ATRIUM. MITRAL ANNULAR AND LEAFLET CALCIFICATION. MILD MITRAL AND TRICUSPID REGURGITATION. MILD PULMONARY HYPERTENSION. TECHNOLOGIST: Carlos Eduardo MOREJON
[2018-11-04] MEDS ORDERED: Levofloxacin500mg IV 500 MG/100 ML BAG IV SCH (18:00)
[2018-11-04] MEDS: IPRATROPIUM BROM 0.5MG/2.5ML NEB PRN (18:38)
[2018-11-04] MEDS: ALBUTEROL 2.5 MG/3 ML NEB SOL NEB PRN (18:38)
--- NOTE | 2018-11-05 00:25 | PN ---
Date of Progress Note: 11/04/2018 Subjective: The patient was seen this morning for followup. No new complaints or problems reported. Overall, she feels better overnight. No new problems reported this morning. Objective: Vital Signs: Reviewed. HEENT: Unremarkable. Lungs: Bilateral good equal air entry. Presence of scattered wheezing in the lower lung resendez. No t using accessory muscles of respiration. Heart Sounds: Normal. Abdomen: Soft. Bowel sounds normal. No guarding, rigidity, tenderness, or distention. Extremities: No leg edema. Laboratory Data: Sodium 140, potassium 3.9, chloride 105, bicarb 22, BUN 28, creatinine 1.37, glucos e 380. White count 7, hemoglobin 12.9, and platelet count of 206. Impression: 1.Acute kidney injury. 2.Acute exacerbation of chronic obstructive pulmonary disease. 3.Hypothyroidism. 4.Hypertension. 5.Hyperlipidemia. Plan: 1.We will go ahead and discontinue IV steroids, start the patient on low prednisone. 2.Start the patient on IV fluid and we will repeat blood work tomorrow morning. 3.The patient was made aware of her abnormal renal function tests today. This is likely due to prob ably IV contrast dye that she received in the emergency room yesterday, with a CT scan of the chest. Hopefully by tomorrow, her renal function should improve and if her clinical condition is stable, en we might be able to discharge her to go home with appropriate oral medications and inhalers. CHERYL/MODL Voice ID: [id number] Report ID: [id number]
[2018-11-05] MEDS: NA CHLORIDE 0.9% 1,000 ML IV SCH ×3 (02:04→08:00)
--- NOTE | 2018-11-05 05:08 | HP ---
Date of Admission: 11/03/2018 Chief Complaint: Cough, congestion, shortness of breath. History Of Present Illness: This is a 78-year-old pleasant female patient who came into emergency room with almost 3 to 4 months' history of increasing cough , chest congestion, shortness of breath and wheezing. Denies any fever, chills. She just feels tired and gets short of breath with normal day-to-day activity and her symptoms have been getting worse lately. She was having some clear mucus but lately she says that it has turned yellow in color. She came into emergency room. After she was evaluated, she was admitted to the hospital. I saw her in the emergency room. Allergies: TO ERYTHROMYCIN. Medications: List reviewed. Review of Systems: Respiratory: As mentioned above. All other systems reviewed and negative. Family History: Not pertinent. Social History: Negative for alcohol use. Prior history of smoking, not at present time. Past Medical History: Significant for hypertension, hypothyroidism, mixed hyperlipidemia, coronary artery disease, impaired fasting glucose, diverticulosis. Past Surgical History: Hysterectomy, CABG. Physical Examination: Vital Signs: When she came in, temperature 98.2, pulse 76, respiratory rate 18 , blood pressure 146/87, oxygen saturation 96%, height 5 feet 5 inches, weight 198 pounds. General: Awake, alert, oriented, not in distress. HEENT: Head atraumatic, normocephalic. Conjunctivae nonerythematous. Sclerae white. Mouth, no thrush or edema noted. Ears/Nose, no mass, lesion, discharge noted. Neck: Supple. No JVD, lymph nodes, bruit, thyromegaly noted. Lungs: Presence of some scattered wheezing noted in lower lung resendez. Not using accessory muscles of respiration. Heart: Normal heart sounds, no murmur or gallop. Abdomen: Soft, bowel sounds normal. No guarding, rigidity, tenderness, mass, hepatosplenomegaly, distention, or bruit noted. Extremities: No leg edema. No calf tenderness. Skin: No rash, ulcer, cellulitis. Lymphatics: No lymph node enlargement in neck, supraclavicular, infraclavicular region. Neuro: No focal neurological deficit. Chest: Unremarkable. External Genitalia: Deferred. Rectal: Deferred. Laboratory Data: Sodium 141, potassium 3.9, chloride 106, bicarb 28, BUN 27, creatinine 0.94, glucose 142. Liver function tests unremarkable. Troponin less than 0.02, lipase 151, procalcitonin less than 0.05. TSH is less than 0.005. White count is 6.3, hemoglobin 14.5, platelets 250. Chest x-ray: No acute cardiopulmonary changes. CAT scan of the chest done in the emergency room per PE protocol shows no evidence of pulmonary embolism, calcified and non- calcified pleural plaquing. No pleural-based mass noted. Impression: 1. Acute exacerbation of chronic obstructive pulmonary disease, rule out asbestosis. 2. Hypertension. 3. Hyperlipidemia, mixed. 4. Hypothyroidism. 5. Coronary artery disease. 6. Diverticulosis. 7. Impaired fasting glucose. Plan: Admit the patient to hospital for further evaluation and management of this problem. The patient is appropriate for inpatient and is expected to spend 2 midnights in hospital. We will go ahead and start her on IV steroid, IV antibiotic, nebulizer treatment. Home medications will be continued per order. I have instructed her that her TSH is extremely low. She takes levothyroxine 112 mcg and she takes 2 tablets daily, so total dose is 224 mcg daily. She gets her thyroid management done by her supervising editor news reel, Dr. Dick in [place] and I have instructed her that her dose needs to be reduced. While in the hospital, we will not give any levothyroxine but upon discharge from the hospital, she should follow up with her supervising editor news reel as soon as possible and until she has chance to visit her supervising editor news reel, she should reduce the dose of levothyroxine 112 mcg and take 1.5 tablets p.o. daily instead of 2 tablets daily. I will see her tomorrow for followup. We will get an echo with Doppler tomorrow. Details and plan of treatment discussed with her. CHERYL/MARY Voice ID: [id number]
[2018-11-05 07:00] LABS: Potassium 3.7 mmol/L (3.5-5.1)
[2018-11-05] MEDS: IPRATROPIUM BROM 0.5MG/2.5ML NEB PRN ×2 (08:10→13:30)
[2018-11-05] MEDS: ALBUTEROL 2.5 MG/3 ML NEB SOL NEB PRN ×2 (08:10→13:30)
[2018-11-05] MEDS ORDERED: GLUCAGON 1 MG/VIAL IM PRN (08:11)
[2018-11-05] MEDS ORDERED: D50W 25 GM/50 ML SYRINGE IV PRN (08:11)
[2018-11-05] MEDS: predniSONE 20 MG TAB PO SCH (08:34)
[2018-11-05] MEDS: ASPIRIN EC 81 MG TAB PO SCH (08:34)
[2018-11-05] MEDS: CEFTRIAXONE/SWI 1gm 1 GM/10 ML SYR IV SCH ×2 (08:34→23:50)
[2018-11-05] MEDS: DULERA 200/5 (MOMETASONE/FORMOTEROL) INHALER IH SCH ×2 (08:35→23:50)
[2018-11-05] MEDS: ENOXAPARIN 40 MG/0.4 ML SQ SCH (08:35)
--- NOTE | 2018-11-05 09:28 | RAD REPORT ---
EXAM DESCRIPTION: Vadim Morales And Vega (2 Views)11/05/2018 8:54 am CLINICAL HISTORY: Cough COMPARISON: November 04, 2018 FINDINGS: Mild bilateral interstitial lung opacities appear chronic. Lungs appear clear of acute infiltrate. The heart is upper limits normal size Postsurgical changes involve the chest IMPRESSION: No acute abnormalities displayed
[2018-11-05] MEDS: MAGNESIUM OXIDE 400 MG TAB PO SCH (09:31)
[2018-11-05] MEDS: hydroCHLOROthiazide 25 MG TAB PO SCH (09:31)
[2018-11-05] MEDS: PARoxetine HCl 10 MG TAB PO SCH (09:31)
[2018-11-05] MEDS: LOSARTAN POTASSIUM 50 MG TABLET PO SCH (09:31)
[2018-11-05] MEDS: AZITHROMYCIN IV 500 MG in NA CHLORIDE 0.9% 250 ML IVPB SCH (09:32)
[2018-11-05] MEDS: TIOTROPIUM 5 SPRAYS/INHALER IH SCH (09:32)
[2018-11-05] MEDS: INSULIN -REGULAR HUMAN 50 UNIT/0.5 ML ML SQ SCH ×3 (11:30→21:00)
[2018-11-05] MEDS: ACETAMINOPHEN 500 MG TAB PO PRN (23:49)
[2018-11-05] MEDS: ATORVASTATIN 10 MG TAB PO SCH (23:50)
[2018-11-06] MEDS: IPRATROPIUM BROM 0.5MG/2.5ML NEB PRN ×2 (00:15→09:23)
[2018-11-06] MEDS: ALBUTEROL 2.5 MG/3 ML NEB SOL NEB PRN ×2 (00:15→09:23)
--- NOTE | 2018-11-06 01:49 | PN ---
Date of Progress Note: 11/05/2018 Subjective: The patient was seen this morning for followup. No new complaints or problems reported by patient except she noted that she had more coughing this morning compared to yesterday and she act ually did not look as good this morning as yesterday. Objective: Vital Signs: Reviewed. HEENT: Unremarkable. Lungs: Bilateral scattered wheezing noted in all lung resendez on both side and this is much worse tod ay than yesterday. The patient appeared weaker than normal. Heart: Sounds normal. Abdomen: Soft. Bowel sounds normal. No guarding, rigidity, tenderness, or distention. Extremities: No leg edema. Laboratory Data: Chest x-ray done today shows no evidence of pneumonia. Impression: 1.Acute exacerbation of chronic obstructive pulmonary disease. 2.Hypertension. 3.Hypothyroidism. Plan: We will go ahead and continue Dulera inhaler and steroid nebulizer treatment per order. We wi ll discontinue Levaquin and start the patient on ceftriaxone as well as azithromycin and start Spiriv a inhaler per order. Ambulation was encouraged. I did talk to patient this evening and she is feeli ng much better compared to this morning. So after I see her tomorrow depending on her condition, [facility] will [facility]. CHERYL/MODL Voice ID: [id number] Report ID: [id number]
[2018-11-06] MEDS: INSULIN -REGULAR HUMAN 50 UNIT/0.5 ML ML SQ SCH ×4 (07:30→21:00)
--- NOTE | 2018-11-06 08:56 | RAD REPORT ---
EXAM DESCRIPTION: CT - Abdomen Pelvis Wo Contrast - 11/06/2018 8:30 am CLINICAL HISTORY: Abdominal pain. LLQ pain, rule out hematoma COMPARISON: CT ABD PELVIS W WO CONTRAST dated 10/13/2014 TECHNIQUE: CT imaging of the abdomen and pelvis was performed without contrast. Solid organ, bowel a nd vascular assessment is limited due to lack of IV and oral contrast. All CT scans are performed using dose optimization technique as appropriate and may include automated exposure control or mA/KV adjustment according to patient size. FINDINGS: The lower lung resendez are clear. The liver, spleen, pancreas, adrenal glands and kidneys are within normal limits for a limited non-co ntrast examination. 12 mm left renal cyst. Gallstones. No bowel obstruction, free air, free fluid or abscess. Sigmoid diverticulosis coli without diverticul itis. The appendix is normal. Lumbar degenerative changes are present. IMPRESSION: No acute intra-abdominal or pelvic findings. Gallstones. Sigmoid diverticulosis coli. A limited non-contrast examination was performed as detailed.
[2018-11-06] MEDS: ACETAMINOPHEN 500 MG TAB PO PRN ×2 (09:08→21:28)
[2018-11-06] MEDS: AZITHROMYCIN IV 500 MG in NA CHLORIDE 0.9% 250 ML IVPB SCH (09:08)
[2018-11-06] MEDS: TIOTROPIUM 5 SPRAYS/INHALER IH SCH (09:08)
[2018-11-06] MEDS: MAGNESIUM OXIDE 400 MG TAB PO SCH (09:10)
[2018-11-06] MEDS: CEFTRIAXONE/SWI 1gm 1 GM/10 ML SYR IV SCH (09:10)
[2018-11-06] MEDS: PARoxetine HCl 10 MG TAB PO SCH (09:10)
[2018-11-06] MEDS: hydroCHLOROthiazide 25 MG TAB PO SCH (09:10)
[2018-11-06] MEDS: ENOXAPARIN 40 MG/0.4 ML SQ SCH (09:10)
[2018-11-06] MEDS: DULERA 200/5 (MOMETASONE/FORMOTEROL) INHALER IH SCH ×2 (09:11→21:00)
[2018-11-06] MEDS: predniSONE 20 MG TAB PO SCH (09:11)
[2018-11-06] MEDS: LOSARTAN POTASSIUM 50 MG TABLET PO SCH (09:11)
[2018-11-06] MEDS: ASPIRIN EC 81 MG TAB PO SCH (09:11)
--- NOTE | 2018-11-06 11:27 | RAD REPORT ---
EXAM DESCRIPTION: RAD - Chest Pa And Lat (2 Views) - 11/06/2018 11:21 am CLINICAL HISTORY: blood in sputum Chest pain. COMPARISON: Chest Pa And Lat (2 Views) dated 11/05/2018; Chest Single View dated 11/04/2018; Chest Sin gle View dated 11/03/2018; Chest Pa And Lat (2 Views) dated 06/20/2018; Abdomen Pelvis Wo Contrast d ated 11/06/2018 FINDINGS: Emphysematous changes have developed with a small linear opacity seen in the right middle lobe, new since comparative radiograph, which may represent developing pneumonia or aspiration. The h eart is normal in size. Sternotomy wires are present IMPRESSION: Linear infiltrate in the right middle lobe is suspected, new since comparative chest rad iograph, suspicious for developing pneumonia or aspiration.
[2018-11-06] MEDS: PIPER/TAZO/NS 3.375gm 3.375 GM/100 ML BAG IVPB SCH (14:21)
--- NOTE | 2018-11-06 16:25 | PN ---
Date of Progress Note: 11/06/2018 Subjective: The patient was seen this morning for followup. She is feeling better compared to yeste rday morning. Objective: Vital Signs: Reviewed. HEENT: Unremarkable Lungs: Bilateral good equal air entry. Presence of some wheezing noted, but significantly better to day compared to yesterday. Not in any respiratory distress. Heart: Heart sounds better. Abdomen: Soft. Bowel sounds normal. No guarding, rigidity, tenderness, or distention. Extremities: Leg edema. Impression: 1.Acute exacerbation of chronic obstructive pulmonary disease. 2.Hypertension. 3.Hypothyroidism. 4.Coronary artery disease. Plan: We will go ahead and continue current antibiotic steroid and nebulizer treatment. Our plan wa s to discharge her to go home today, but after I saw her, nurse contacted and informed me that the pa tierra coughed up some dark colored mucus with some streaks of blood in it and she was concerned about going home. We will cancel our discharge plan for today and get a chest x-ray done today. Yesterday 's x-ray had not shown any pneumonia, but we will repeat chest x-ray today and meanwhile continue oth er current medications at this point. I will see her tomorrow for followup depending on her conditio n. We will decide if she is stable for discharge tomorrow or not. Her hemoptysis problem that she has today is likely due to underlying bronchitis problem, but we will make sure ther e is no evidence of any pneumonia. CHERYL/MODL Voice ID: [id number] Report ID: [id number]
[2018-11-06] MEDS: ATORVASTATIN 10 MG TAB PO SCH (21:00)
[2018-11-07] MEDS: PIPER/TAZO/NS 3.375gm 3.375 GM/100 ML BAG IVPB SCH ×2 (00:52→10:10)
[2018-11-07] MEDS: INSULIN -REGULAR HUMAN 50 UNIT/0.5 ML ML SQ SCH ×2 (07:30→11:35)
[2018-11-07 07:31] LABS: Absolute Lymphocytes (CBC) 2.6 K/uL (0.7-4.9); Absolute Monocytes 0.6 K/uL (0.1-1.3); Absolute Neutrophil 5.6 K/uL (1.8-8.0); Basophils % 0.6 % (0-1.3); Eosinophils % 5.8 % (0-4.4); Hematocrit 41.5 % (36.0-45.0); Lymphocytes % 27.6 % (15.3-44.8); MPV 8.9 fL (7.6-11.3); Monocytes % 6.7 % (3.3-12.3); RBC Red Blood Cell Count 4.54 M/uL (3.86-4.86)
[2018-11-07 07:42] LABS: Magnesium 1.9 mg/dL (1.8-2.4); Potassium 3.8 mmol/L (3.5-5.1)
[2018-11-07] MEDS: ALBUTEROL 2.5 MG/3 ML NEB SOL NEB PRN (07:55)
[2018-11-07] MEDS: IPRATROPIUM BROM 0.5MG/2.5ML NEB PRN (07:55)
[2018-11-07 09:33] VITALS: O2SAT 93
[2018-11-07] MEDS: MAGNESIUM OXIDE 400 MG TAB PO SCH (10:13)
[2018-11-07] MEDS: ASPIRIN EC 81 MG TAB PO SCH (10:13)
[2018-11-07] MEDS: hydroCHLOROthiazide 25 MG TAB PO SCH (10:13)
[2018-11-07] MEDS: PARoxetine HCl 10 MG TAB PO SCH (10:14)
[2018-11-07] MEDS: predniSONE 20 MG TAB PO SCH (10:14)
[2018-11-07] MEDS: TIOTROPIUM 5 SPRAYS/INHALER IH SCH (10:14)
[2018-11-07] MEDS: LOSARTAN POTASSIUM 50 MG TABLET PO SCH (10:14)
[2018-11-07] MEDS: DULERA 200/5 (MOMETASONE/FORMOTEROL) INHALER IH SCH (10:15)
[2018-11-07] MEDS: AZITHROMYCIN IV 500 MG in NA CHLORIDE 0.9% 250 ML IVPB SCH (10:16)
[2018-11-07] MEDS: ACETAMINOPHEN 500 MG TAB PO PRN (10:45)
[2018-11-07 11:34] VITALS: BP 148/76; TEMP 97.6
--- NOTE | 2018-11-08 23:11 | DS ---
Date of Discharge: 11/07/2018 Disposition: The patient left hospital against medical. Physical Examination: HEENT: Unremarkable. Lungs: Bilateral good equal air entry. Not in any respiratory distress. Wheezing present in both l ungs, but much better today and it is mostly in the lower lung region today, but better today than ye sterday. Heart: Sounds normal. Abdomen: Soft. Bowel sounds normal. No guarding, rigidity, tenderness, distention. Extremities: No leg edema. Laboratory Data: Labs done during this hospitalization: Initial white count upon admission was 6.3, hemoglobin 14.5, platelets 250. Hemoglobin A1c done during this hospitalization was DICTATION ENDS HERE CHERYL/MODL Voice ID: [id number] Report ID: [id number]
--- NOTE | 2018-11-08 23:42 | DS ---
Date of Discharge: 11/07/2018 Labs Done During This Hospitalization: Upon admission, white count 6.3, hemoglobin 14.5, platelets 2 50. Last chemistry on 11/05/2018, sodium 143, potassium 3.7, chloride 111, bicarb 26, BUN 26, creati nine 0.88, glucose 215. Hemoglobin A1c 6.9 on 11/05/2018. Upon admission, BUN was 27, creatinine 0. 94. Liver function tests were unremarkable. Day after admission, creatinine has gone up to 1.37, bu t then with IV fluid hydration, creatinine came down to normal. CAT scan of the chest done per PE pr otocol in emergency room was negative for pulmonary embolism, was negative for any pneumonia or acute lung finding, some pleural plaques noted. Chest x-ray upon admission done in the emergency room was negative for any acute findings including pneumonia and this was on 11/03/2018. Echocardiogram show ed normal ejection fraction. Hospital Course: This is a 78-year-old female patient, who came into emergency room with cough, bin estion, shortness of breath. Please see dictated H and P for more information. After the patient wa s evaluated in the emergency room, she was admitted to the hospital with acute exacerbation of COPD. She was started on Levaquin, IV steroid, nebulizer treatment, and day after admission, her creatinin e had gone up to 1.37, which is on 11/04/2018. At that time, we decided to give her IV fluid hydrati on for this acute kidney injury, likely due to IV contrast dye that she had received with CT scan don e in the emergency room. Otherwise, she was feeling better on 11/04/2018 with her presenting complai nts of cough, congestion. Shortness of breath was actually getting better with provided treatment. On 11/05/2018, we did repeat her blood work. Renal function came back to normal, so we discontinued her IV fluid, but that particular day, she started to have lot more chest congestion, wheezing noted on lung examination, so her lung findings were worse on 11/05/2018 compared to previous 2 days. So, obviously we decided not to discharge her. Started her on Dulera inhaler and Spiriva inhaler. She w as continued on steroid treatment and I discontinued her Levaquin, started her on ceftriaxone and marysol thromycin, and repeat chest x-ray from that particular day was negative for any pneumonia. On 2018, when I saw her, she was complaining of left lower abdominal wall pain from coughing and it was associated with the coughing. The patient was getting Lovenox for DVT prophylaxis, so we wanted to r ule out any kind of retroperitoneal hematoma type of situation and complication from Lovenox, so stat CT abdomen was done without contrast and that came back negative for any such hematoma. It did show diverticulosis, gallstone, and a 12 mm left renal cyst, but no acute findings. Her lung examination on 11/06/2018 was actually better compared to previous day and we were planning to discharge her to go home with antibiotics, steroids, and inhaler with outpatient followup, but after I saw her, she st arted to cough up some colored mucus with blood in it, so we canceled her discharge and repeated her chest x-ray, which showed development of pneumonia in the right lung area. With that, I discontinued her ceftriaxone and added Zosyn along with continuation of azithromycin. Lovenox was discontinued a fter the last dose on 11/06/2018 because of this hemoptysis that she started and her last dose was in the morning of 11/06/2018. When I saw her on the day of discharge, the patient informed me that her son and daughter, they do not want her to stay in this hospital, they want her to go to another hosp ital, and the patient requested for me to call her daughter to discuss details and I did reach out to the patient's daughter, Abigail, at [phone], and all the details about the patient's hospital [facility] from the time of presentation until today with all the test results discussed with her including my recommendation for pleural plaque, for the patient to continue to follow up with wool classer on outpatient basis as that needs to be monitored. The patient's family wants her to go to another [facility], so I explained it to the patient as well as the patient's daughter that if they have physician at other hospital, I can go ahead and contact physician at other hospital to try and see if they wou ld accept the patient for transfer and we will have to have physician as well as hospital providers a cceptance in order for us to transfer. At that time, the patient asked me what if she could leave [facility] on her own and go to another hospital, and I informed her that in that case she will have to leave this hospital against medical advice and my recommendation will be for her not to drive her self, but her family to drive her to hospital of her choice, and I discussed same details with her timmy millard as well. Daughter informed me that the patient's grandson is going to go ahead and provide tr ansportation to her, and they will be taking her to another hospital upon discharge from this hospita l and the patient left hospital against medical advice. Final Diagnoses: 1.Pneumonia. 2.Acute exacerbation of chronic obstructive pulmonary disease. 3.Rule out asbestosis. 4.Coronary artery disease. 5.Hypertension. 6.Hyperlipidemia. 7.Hypothyroidism. 8.Type 2 diabetes mellitus. 9.Acute kidney injury, resolved. 10.Diverticulosis. 11.Gallstones. 12.Left renal cyst. CHERYL/MODL Voice ID: [id number] Report ID: [id number]
== END 2018-11-07 14:25 | disposition left against medical advice (07) | DRG 190 ==
LOC: ER 16:55 → ERHOLD 18:14 → 4TH 19:53
PROVIDERS: ADMIT Internal Medicine; ATTEND Internal Medicine
DX: J44.1 Chronic obstructive pulmonary disease with (acute) exacerbation (principal); J18.9 Pneumonia, unspecified organism; N17.9 Acute kidney failure, unspecified; I10 Essential (primary) hypertension; E03.9 Hypothyroidism, unspecified; I25.10 Atherosclerotic heart disease of native coronary artery without angina pectoris; J44.0 Chronic obstructive pulmonary disease with (acute) lower respiratory infection; K57.90 Diverticulosis of intestine, part unspecified, without perforation or abscess without bleeding; K80.80 Other cholelithiasis without obstruction; N28.1 Cyst of kidney, acquired; E11.9 Type 2 diabetes mellitus without complications; Z53.21 Procedure and treatment not carried out due to patient leaving prior to being seen by health care provider
CPT/HCPCS: 36415; 71045; 71046; 71275; 74176; 80048; 80076; 81003; 82962; 83036; 83690; 83735; 83880; 84145; 84443; 84484; 85025; 85610; 87040; 87077; 87086; 87088; 87186; 87804; 93005; 93306; 94640; 94760; 96365; 96367; 96375; 99285; J0456; J0696; J1650; J2543; J2920; J2930; J7030; J7512; J7606; Q9967

== ENCOUNTER 2022-08-05 08:28 | Observation (INO) | payer OTHER, MEDICARE ==
--- OUTSIDE RECORDS SUMMARY | 2022-08-05 08:37 | XMS REPORT | Continuity of Care Document ---
:1940 Author Organization [facility] t Address [address] [place] [address] Care Team Providers Name Role Phone PORTILLO QUINONES Primary Care Physician Unavailable Desirae Newby Attending Clinician Unavailable STEPHANIE APARICIO Attending Clinician Unavailable Stephanie Aparicio MD Attending Clinician Chandra LONG, Jackie Britt Attending Clinician [phone] Sandra Giron MD Attending Clinician ASTER CARR, PChristy Attending Clinician Unavailable STEPHANIE APARICIO Admitting Clinician Unavailable Stephanie Aparicio MD Admitting Clinician Payers Payer Name Policy Type Policy Number Effective Date Expiration Date S ource MEDICARE PART A \T\ [id number] 2006 B 00:00:00 [facility] [id number] 2006 MEDICARE SUPPLEMENT 00:00:00 Problems Condition Condition Condition Status Onset Resolution Last Treating Co mments Source Name Details Category Date Date Treatment Clinician Date Chest pain Chest pain Disease Active 2019-06 M [facility] 07-[facility] 00:00: Hospita 00 l CAD in CAD in Disease Active 2017-06 [facility] artery artery 00:00: Hospita 00 l Hx of CABG Hx of CABG Disease Active M ethodi [facility] 00:00: Hospita 00 l Hyperlipid Hyperlipid Disease Active M ethodi emia emia [address] [facility] 00:00: Hospita 00 l Essential Essential Disease Active Met hodi hypertensi hypertensi 14 st on on 00:00: Hospita 00 l SOB SOB Disease Active Methodi (shortness (shortness 2-14 st of breath) of breath) 00:00: Ho spita 00 l History of History of Problem Resolve [facility] blood blood d Physici clots clots ans History of History of Problem Resolve [facility] Diabetes Diabetes d Physic i ans History of History of Problem Resolve [facility] Heart Heart d Physici disease disease ans History of History of Problem Resolve UT Pneumonia Pneumonia d Phys ici ans Osteoarthr Osteoarthr Problem Active U T itis of itis of Physici left knee left knee ans [id number] Coronary Problem Com mon 107 artery Spirit disease - [facility] involving [facility] coronary Medical artery of [facility] [place] [facility] without angina pectoris [id number] Dyslipidem Problem Co mmon ia Spirit [facility] [id number] Mixed Problem Common hyperlipid Spirit emia [facility] [id number] 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 [id number] GIANNA Problem Common (generaliz Spirit ed anxiety - CHI disorder) [facility] [id number] Other Problem Common chronic [facility] pain - [facility] Knee pain, Knee pain, Problem Active U T left left Physici ans Allergies, Adverse Reactions, Alerts Allergy Allergy Status Severity Reaction(s) Onset Inactive Treating Comm ents Source Name Type Date Date Clinician Connie Varelaensi Active Method i ycin ty to 2-14 st adverse 00:00: Hospita reaction 00 l s to drug Lisinopr Propensi Active Method i il ty to 2-14 st adverse 00:00: Hospita reaction 00 l s to drug LISINOPR DRUG Active COUGH Univers IL INGREDI 2-14 ity of 00:00: [place] 00 Medical Branch Lisinopr Propensi Active Cough Univer s il ty to 2-14 ity of adverse 00:00: [place] reaction 00 Medical s Branch Erythrom Propensi Active Swelling 2014-06 Univ ers ycin ty to 0-20 ity of adverse 00:00: [place] reaction 00 Medical s to Branch drug ERYTHROM DRUG Active High Swelling 2014-06 Univer s YCIN 0-20 ity of 00:00: [place] 00 Medical Branch erythrom erythrom Active Unknown Commo n ycin ycin [facility] azithrom Allergy Active UT ycin to drug Physici (finding ans ) Family History Family Member Diagnosis Comments Start Date Stop Date Source Natural father Heart attack [facility] Natural father Sleep apnea [facility] Natural mother Heart defect [facility] Social History Social Habit Start Date Stop Date Quantity Comments Source History of Tobacco Common Spirit - Use [facility] History SDOH [facility] Alcohol Std Drinks Hospit al History SDOH [facility] Exposure to 2022-07-16 2022-07-26 Not sure University of SARS-CoV-2 (event) 00:00:00 10:41:00 [facility] Alcohol intake 2021-11-29 2021-11-29 Ex-drinker [facility] 00:00:00 00:00:00 (finding) Hospital History SDOH 2020-07-04 2020-07-04 1 [facility] Alcohol Frequency 00:00:00 00:00:00 Hospita l Cigarettes smoked 2019-11-19 2019-11-[address] current (pack per 00:00:00 00:00:00 Hospita l day) - Reported Cigarette 2019-11-19 2019-11-19 [facility] pack-years 00:00:00 00:00:00 Hospital Education 2019-11-19 2019-11-19 14 [facility] 00:00:00 00:00:00 Hospital Tobacco Comment 2019-11-19 2019-11-19 Quit in [address] 00:00:00 00:00:00 used to smoke 1 Hospital PPD Alcohol Comment 2019-11-19 2019-11-19 quit back [id number] Met dahliaist 00:00:00 00:00:00 Hospital Tobacco use and 2015-04-12 2015-04-12 Smokeless Universit y of exposure 00:00:00 00:00:00 tobacco non-user [facility] Sex Assigned At [birth year] [facility] 00:00:00 00:00:00 Hospital Smoking Status Start Date Stop Date Source Ex-smoker 2015-04-12 00:00:00 2015-04-12 00:00:00 [facility] Branch Medications Ordered Filled Start Stop Current Ordering Indication Dosage Frequency Signature Comments Components Source Medication Medication Date Date Medication? Clinician (SIG) Name Name zinc 50 mg 2022- No 50mg Take 50 mg Methodi tablet 06-[address] 11:05: 00:00 Hospita 08 :00 l sertraline 2023- Yes [id number] 100mg QD Take 1 Methodi (Zoloft) 06-[address] 100 MG 00:00: 05:59 (100 mg Hospita tablet 00 :00 total) by l mouth daily. lactated 2021-06- No 1000mL at 42 Unive rs ringers IV 06-24 mL/hr, ity of infusion 19:00: 18:52 1,000 mL, Sahil as 1,000 mL 00 :00 IV Medical Infusion, Branch ONCE, 1 dose, On Fri04/24/22 at 1400, Routine, Endo Pre-op lactated 2021-06- No 1000mL at 42 Unive rs ringers IV 06-2402 mL/hr, ity of infusion 19:00: 18:52 1,000 mL, Sahil as 1,000 mL 00 :00 IV Medical Infusion, Branch ONCE, 1 dose, On Fri04/24/22 at 1400, Routine, Endo Pre-op water for 2021-06- No PRN, Univers irrigation 06-24 Starting ity of irrigation 18:59: 20:20 on Fri [place] solution 00 :17 04/24/22 at Medic al 1359, Branch Until Fri04/24/22 at 1520, Routine, Intra-op simethicone 2021-06 2022- No PRN, Unive rs (GAS RELIEF 06-24 Starting ity of (SIMETHICON 18:59: 20:20 on Fri Sahil as E)) 40 00 :17 04/24/22 at Medical mg/0.6 mL 1359, Branch drops Until Fri04/24/22 at 1520, Routine, Intra-op losartan 2021-06 Yes 50mg Take 50 mg Uni vers (COZAAR) 50 -02 by mouth ity of mg tablet 15:54: daily. [address] Branch hydroCHLORO 2021-06 Yes 25mg Take 25 mg Univers thiazide 25 -02 by mouth ity of mg tablet 15:54: in the [place] [address] morning. Medical Branch Levothyroxi 2021-06 Yes 112ug Take 112 U nivers ne 112 mcg 1-02 mcg by ity of capsule 15:54: mouth in [place] [address] the Medical morning. Branch Pitavastati 2021-06 Yes 2mg Take 2 mg U nivers n 2 mg Tab 1-02 by mouth ity o f 15:54: daily. [address] Branch aspirin 81 2021-06 Yes 81mg Take 81 mg U nivers mg EC -02 by mouth ity of tablet 15:54: daily. [address] Branch vitamin C 2021-06 Yes 1000mg Take 1,000 Univers with aldair 1-02 mg by ity of hips 1,000 15:54: mouth [place] mg tablet 59 daily. Medical Branch cholecalcif 2021-06 Yes 1000U Take 1,000 Univers darryl, 1-02 Units by ity of vitamin D3, 15:54: mouth [place] 25 mcg 59 daily. Medical (1,000 Branch unit) tablet MULTIVITAMI 2021-06 Yes 1{tbl} Take 1 Tab Univers N NO.44-VIT 1-02 by mouth ity of D3-K ORAL 15:54: daily. [address] Branch ALPRAZolam 2021-06 Yes .25mg Take 0.25 U nivers (XANAX) 1-02 mg by ity of 0.25 mg 15:54: mouth at [place] tablet 59 bedtime. Medical Branch CRANBERRY 2021-06 Yes 1{tbl} Take 1 Tab Univers EXTRACT 1-02 by mouth ity of ORAL 15:54: daily. [place] 59 Medical Branch Biotin-Sili 2021-06 Yes 1{tbl} Take 1 Tab Univers con 1-02 by mouth ity of Diox-L-Cyst 15:54: daily. Chacho hadley (EUSEBIO 59 Medical MATRIX Branch 5000) 5,000 mcg-100 mg- 50 mg Tab pravastatin 2021-06 Yes 80mg Take 80 mg Univers 80 mg 1-02 by mouth ity of tablet 15:54: at [place] 59 bedtime. Medical Branch SERTraline 2021-06 Yes 50mg Take 50 mg U nivers 50 mg 1-02 by mouth ity of tablet 15:54: in the [place] 59 morning. Medical Branch ezetimibe 2021-06 Yes 10mg Take 10 mg Un luis a 10 mg -02 by mouth ity of tablet 15:54: in the [place] 59 morning. Medical Branch cyclobenzap 2021-06 Yes 5mg Take 5 mg U nivers rine 5 mg -02 by mouth ity of tablet 15:54: as needed [place] 59 for Muscle Medical Spasms. Branch SITagliptin 2021-06 Yes 1{tbl} Take 1 Un luis a -metformin 1-02 tablet by ity of (JANUMET 15:54: mouth [place] XR) 59 daily. Medical 100-1,000 Branch mg per tablet olmesartan 2021-06 Yes 40mg Take 40 mg U nivers 40 mg 02 by mouth ity of tablet 15:54: in the [place] 59 morning. Medical Branch cyanocobala 2021-[address] Uni vers min, 1-02 5,000 mcg ity of vitamin 15:54: under the [place] B-12, 5,000 59 tongue Medica l mcg Subl daily. Branch ibuprofen 2021-06 Yes 400mg Take 400 Uni vers 200 mg 1-02 mg by ity of tablet 15:54: mouth as [place] 59 needed. Medical Branch losartan 2021-06 Yes 50mg Take 50 mg Uni vers (COZAAR) 50 1-02 by mouth ity of mg tablet 15:54: daily. [place] 59 Medical Branch hydroCHLORO 2021-06 Yes 25mg Take 25 mg Univers thiazide 25 1-02 by mouth ity of mg tablet 15:54: in the [place] 59 morning. Medical Branch Levothyroxi 2021-06 Yes 112ug Take 112 U nivers ne 112 mcg 1-02 mcg by ity of capsule 15:54: mouth in [place] [address] the Medical morning. Branch Pitavastati 2021-06 Yes 2mg Take 2 mg U nivers n 2 mg Tab 1-02 by mouth ity o f 15:54: daily. [place] [address] Medical Branch aspirin 81 2021-06 Yes 81mg Take 81 mg U nivers mg EC 1-02 by mouth ity of tablet 15:54: daily. [place] [address] Medical Branch vitamin C 2021-06 Yes 1000mg Take 1,000 Univers with aldair 1-02 mg by ity of hips 1,000 15:54: mouth [place] mg tablet 59 daily. Medical Branch cholecalcif 2021-06 Yes 1000U Take 1,000 Univers darryl, 1-02 Units by ity of vitamin D3, 15:54: mouth [place] 25 mcg 59 daily. Medical (1,000 Branch unit) tablet MULTIVITAMI 2021-06 Yes 1{tbl} Take 1 Tab Univers N NO.44-VIT 1-02 by mouth ity of D3-K ORAL 15:54: daily. [place] [address] Medical Branch ALPRAZolam 2021-06 Yes .25mg Take 0.25 U nivers (XANAX) 1-02 mg by ity of 0.25 mg 15:54: mouth at [facility] 59 bedtime. Medical Branch CRANBERRY 2021-06 Yes 1{tbl} Take 1 Tab Univers EXTRACT 1-02 by mouth ity of ORAL 15:54: daily. [place] [address] Medical Branch Biotin-Sili 2021-06 Yes 1{tbl} Take 1 Tab Univers con 1-02 by mouth ity of Diox-L-Cyst 15:54: daily. Sahila s eine (WEEMS 59 Medical MATRIX Branch 5000) 5,000 mcg-100 mg- 50 mg Tab pravastatin 2021-06 Yes 80mg Take 80 mg Univers 80 mg 1-02 by mouth ity of tablet 15:54: at [place] [address] bedtime. Medical Branch SERTraline 2021-06 Yes 50mg Take 50 mg U nivers 50 mg 1-02 by mouth ity of tablet 15:54: in the [place] 59 morning. Medical Branch ezetimibe 2021-06 Yes 10mg Take 10 mg Un luis a 10 mg 1-02 by mouth ity of tablet 15:54: in the [place] [address] morning. Medical Branch cyclobenzap 2021-06 Yes 5mg Take 5 mg U nivers rine 5 mg 1-02 by mouth ity of tablet 15:54: as needed [place] 59 for Muscle Medical Spasms. Branch SITagliptin 2021-06 Yes 1{tbl} Take 1 Un luis a -metformin 1-02 tablet by ity of (JANUMET 15:54: mouth [place] XR) 59 daily. Medical 100-1,000 Branch mg per tablet olmesartan 2021-06 Yes 40mg Take 40 mg U nivers 40 mg 1-02 by mouth ity of tablet 15:54: in the [place] 59 morning. Medical Branch cyanocobala 2021-[address] Uni vers min, 1-02 5,000 mcg ity of vitamin 15:54: under the [place] B-12, 5,000 59 tongue Medica l mcg Subl daily. Branch ibuprofen 2021-06 Yes 400mg Take 400 Uni vers 200 mg 1-02 mg by ity of tablet 15:54: mouth as [place] 59 needed. Medical Branch losartan 2021-06 Yes 50mg Take 50 mg Uni vers (COZAAR) 50 1-02 by mouth ity of mg tablet 15:54: daily. [place] 59 Medical Branch hydroCHLORO 2021-06 Yes 25mg Take 25 mg Univers thiazide 25 1-02 by mouth ity of mg tablet 15:54: in the [place] 59 morning. Medical Branch Levothyroxi 2021-06 Yes 112ug Take 112 U nivers ne 112 mcg 1-02 mcg by ity of capsule 15:54: mouth in [place] 59 the Medical morning. Branch Pitavastati 2021-06 Yes 2mg Take 2 mg U nivers n 2 mg Tab 1-02 by mouth ity o f 15:54: daily. [place] 59 Medical Branch aspirin 81 2021-06 Yes 81mg Take 81 mg U nivers mg EC 1-02 by mouth ity of tablet 15:54: daily. [place] 59 Medical Branch vitamin C 2021-06 Yes 1000mg Take 1,000 Univers with aldair 1-02 mg by ity of hips 1,000 15:54: mouth [place] mg tablet 59 daily. Medical Branch cholecalcif 2021-06 Yes 1000U Take 1,000 Univers darryl, 1-02 Units by ity of vitamin D3, 15:54: mouth [place] 25 mcg 59 daily. Medical (1,000 Branch unit) tablet MULTIVITAMI 2021-06 Yes 1{tbl} Take 1 Tab Univers N NO.44-VIT 1-02 by mouth ity of D3-K ORAL 15:54: daily. [place] 59 Medical Branch ALPRAZolam 2021-06 Yes .25mg Take 0.25 U nivers (XANAX) 1-02 mg by ity of 0.25 mg 15:54: mouth at [place] tablet 59 bedtime. Medical Branch CRANBERRY 2021-06 Yes 1{tbl} Take 1 Tab Univers EXTRACT 1-02 by mouth ity of ORAL 15:54: daily. [place] 59 Medical Branch Biotin-Sili 2021-06 Yes 1{tbl} Take 1 Tab Univers con 1-02 by mouth ity of Diox-L-Cyst 15:54: daily. [place] hadley (EUSEBIO 59 Medical MATRIX Branch 5000) 5,000 mcg-100 mg- 50 mg Tab pravastatin 2021-06 Yes 80mg Take 80 mg Univers 80 mg 1-02 by mouth ity of tablet 15:54: at [place] 59 bedtime. Medical Branch SERTraline 2021-06 Yes 50mg Take 50 mg U nivers 50 mg 1-02 by mouth ity of tablet 15:54: in the [place] 59 morning. Medical Branch ezetimibe 2021-06 Yes 10mg Take 10 mg Un luis a 10 mg 1-02 by mouth ity of tablet 15:54: in the [place] 59 morning. Medical Branch cyclobenzap 2021-06 Yes 5mg Take 5 mg U nivers rine 5 mg -02 by mouth ity of tablet 15:54: as needed [place] 59 for Muscle Medical Spasms. Branch SITagliptin 2021-06 Yes 1{tbl} Take 1 Un luis a -metformin 1-02 tablet by ity of (JANUMET 15:54: mouth [place] XR) 59 daily. Medical 100-1,000 Branch mg per tablet olmesartan 2021-06 Yes 40mg Take 40 mg U nivers 40 mg 1-02 by mouth ity of tablet 15:54: in the [place] 59 morning. Medical Branch cyanocobala 2021-[address] Uni vers min, 1-02 5,000 mcg ity of vitamin 15:54: under the [place] B-12, 5,000 59 tongue Medica l mcg Subl daily. Branch ibuprofen 2021-06 Yes 400mg Take 400 Uni vers 200 mg 1-02 mg by ity of tablet 15:54: mouth as [place] 59 needed. Medical Branch Amoxicillin Amoxicillin 2021-06- No 1{table BID Amoxicilli -Pot -Pot 0-04 10-14 t} n-Pot Clavulanate Clavulanate 00:00: 00:00 Clavulanat 500-125 MG 500-125 MG 00 :00 e 500-125 MG Amoxicillin Amoxicillin 2021-06- No 1{table BID Amoxicilli -Pot -Pot 0-04 10-14 t} n-Pot Clavulanate Clavulanate 00:00: 00:00 Clavulanat 500-125 MG 500-125 MG 00 :00 e 500-125 MG glipiZIDE glipiZIDE No 1{table QD glipiZIDE XL 10 MG XL 10 MG 9-28 t_with_ XL 10 MG 00:00: } metFORMIN metFORMIN 2021-0 No 1{table BID metFORMIN HCl 1000 MG HCl 1000 MG -28 t_with_ HCl 1000 00:00: a_meal} MG 00 metFORMIN metFORMIN 2021-0 No 1{table BID metFORMIN HCl 1000 MG HCl 1000 MG -28 t_with_ HCl 1000 00:00: a_meal} MG 00 glipiZIDE glipiZIDE 2021-0 No 1{table QD glipiZIDE XL 10 MG XL 10 MG -28 t_with_ XL 10 MG 00:00: } glipiZIDE glipiZIDE 2021-0 No 1{table QD glipiZIDE XL 10 MG XL 10 MG 9-28 t_with_ XL 10 MG 00:00: } metFORMIN metFORMIN 2021-0 No 1{table BID metFORMIN HCl 1000 MG HCl 1000 MG 9-28 t_with_ HCl 1000 00:00: a_meal} MG 00 metFORMIN metFORMIN 2021-0 No 1{table BID metFORMIN HCl 1000 MG HCl 1000 MG 9-28 t_with_ HCl 1000 00:00: a_meal} MG 00 glipiZIDE glipiZIDE 2021-0 No 1{table QD glipiZIDE XL 10 MG XL 10 MG 9-28 t_with_ XL 10 MG 00:00: breakfa 00 st} glipiZIDE glipiZIDE No 1{table QD glipiZIDE XL 10 MG XL 10 MG 03-20 t_with_ XL 10 MG 00:00: } metFORMIN metFORMIN No 1{table BID metFORMIN HCl 1000 MG HCl 1000 MG 28 t_with_ HCl 1000 00:00: a_meal} MG 00 metFORMIN metFORMIN No 1{table BID metFORMIN HCl 1000 MG HCl 1000 MG 28 t_with_ HCl 1000 00:00: a_meal} MG 00 glipiZIDE glipiZIDE No 1{table QD glipiZIDE XL 10 MG XL 10 MG 03-20 t_with_ XL 10 MG 00:00: } omeprazole Yes 20mg Take 20 mg U nivers 20 mg 02-26 by mouth ity of capsule 00:00: in the [place] morning. Medical Branch omeprazole Yes 20mg Take 20 mg U nivers 20 mg 02-26 by mouth ity of capsule 00:00: in the [place] morning. Medical Branch omeprazole Yes 20mg Take 20 mg U nivers 20 mg 02-26 by mouth ity of capsule 00:00: in the [place] morning. Medical Branch MELATONIN Yes QD Take by Metho di ORAL [address] 10:32: nightly as Hospita 15 needed l (insomnia) . ibuprofen Yes 400mg Take 400 Met hodi (ADVIL) 200 6-[address] MG tablet 09:42: mouth as Hosp varsha 13 needed for l mild pain. prn cholecalcif Yes 2000U QD Take 2,000 Methodi darryl, 6-[address] vitamin D3, 09:41: mouth Hospi ta (VITAMIN 45 daily. l D3) 1,000 unit tablet aspirin Yes 81mg Take 81 mg Meth kristy (ECOTRIN) 6-[address] 81 MG 09:41: Hospita enteric 45 l coated tablet ascorbic Yes 1000mg Take 1,000 M ethodi acid, 6-[address] vitamin C, 09:41: mouth. Hospi ta (VITAMIN C) 45 l 1000 MG tablet BIOTIN ORAL Yes QD Take by Met hodi 6-[address] 09:41: daily. Hospita 45 Daily, l 10,000 mcg multivitami Yes 1{tbl} QD Take 1 Me thodi n with 6- tablet by st minerals 09:41: mouth Hospita tablet 45 daily. l SITagliptin Yes 1{tbl} QD Take 1 Me thodi -metformin 6-[address] (Janumet 09:41: mouth Hospita XR) 45 every l 100-1,000 evening. mg tablet, ER multiphase 24 hr cyanocobala Yes 2500ug QD Place Met hodi min, 11-29 2,[address] vitamin 09:41: under the Hospi ta B-12, 5,000 45 tongue l mcg tablet, daily. sublingual cyclobenzap Yes [id number] 5mg QD Take 1 Methodi rine 6-09 tablet (5 st (FLEXERIL) 00:00: mg total) Ho spita 5 mg tablet 00 by mouth l nightly as needed for muscle spasms. sertraline 2022- No [id number] 100mg QD Take 1 Methodi (Zoloft) 1-26 01-[address] 100 MG 00:00: 00:00 (100 mg Hospita tablet 00 :00 total) by l mouth daily. baclofen 2021- No [id number] 10mg Q.[id number] Take 1 Methodi (LIORESAL) 9-27 06-09 [id number] tablet (10 st 10 MG 00:00: 00:00 3D mg total) Hospit a tablet 00 :00 by mouth 3 l (three) times a day as needed for muscle spasms. losartan Yes [id number] TAKE 1 Me thodi (COZAAR) 5-[address] 100 MG 00:00: MOUTH Hospita tablet 00 DAILY l ezetimibe Yes 1{tbl} QD Take 1 Meth kristy (ZETIA) 10 4-[address] mg tablet 00:00: mouth Hospita 00 daily. l Meloxicam Meloxicam Yes HINES Q0.5D TAKE 1 UT 7.5 MG Oral 7.5 MG Oral 6-16 BRALY M.D. TABLET Physici Tablet Tablet 00:00: TWICE ans 00 DAILY NEEDED. pravastatin 2018-06 Yes TAKE 1 Meth kristy (PRAVACHOL) 1-[address] 40 MG 00:00: MOUTH Hospita tablet 00 DAILY l FLUZONE 2018-06 Yes ADM 0.5ML Metho di HIGH-DOSE 0-[address] , 00:00: Hospita PF, 180 00 l mcg/0.5 mL syringe IM injection PREVNAR 2018-06- No once. Meth kristy PF, 0.5 mL 0-03 06-09 st vaccine 00:00: 00:00 Hospita 00 :00 l levothyroxi 2017-06 Yes 112ug QD 112 mcg Me thodi ne 0-[address] (SYNTHROID, 00:00: days a Hosp varsha LEVOXYL) 00 week, l 112 mcg except on tablet Sundays when she takes half Ezetimibe Ezetimibe No Ezetimibe 10 MG 10 MG 10 MG Vitamin D-3 Vitamin D-3 No Vitamin D-3 Aspirin 81 Aspirin 81 No 1{table QD Aspirin 81 MG MG t} MG Olmesartan Olmesartan No Olmesartan Medoxomil Medoxomil Medoxomil 40 MG 40 MG 40 MG Centrum Centrum No Centrum Silver Silver Silver Ultra Ultra Ultra Womens - Womens - Womens - Aspirin 81 Aspirin 81 No Aspirin 81 Levothyroxi Levothyroxi No Levothyrox ne Sodium ne Sodium ine Sodium 112 MCG 112 MCG 112 MCG Vitamin C Vitamin C No Vitamin C Multivitami Multivitami No Multivitam n n in Pravastatin Pravastatin No 1{table QD Pravastati Sodium 80 Sodium 80 t} n Sodium MG MG 80 MG Biotin Biotin No Biotin hydroCHLORO hydroCHLORO No hydroCHLOR thiazide 25 thiazide 25 Othiazide MG MG 25 MG Janumet XR Janumet XR No 1{table QD Janumet XR 100-1000 MG 100-1000 MG t_with_ 100-1000 evening MG _meal} Sertraline Sertraline No QD Sertraline HCl 100 MG HCl 100 MG HCl 100 MG Vitamin C Vitamin C No Vitamin C Aspirin 81 Aspirin 81 No 1{table QD Aspirin 81 MG MG t} MG Centrum Centrum No Centrum Silver Silver Silver Ultra Ultra Ultra Womens - Womens - Womens - Ezetimibe Ezetimibe No Ezetimibe 10 MG 10 MG 10 MG hydroCHLORO hydroCHLORO No hydroCHLOR thiazide 25 thiazide 25 Othiazide MG MG 25 MG Biotin Biotin No Biotin Aspirin 81 Aspirin 81 No Aspirin 81 Pravastatin Pravastatin No 1{table QD Pravastati Sodium 80 Sodium 80 t} n Sodium MG MG 80 MG Levothyroxi Levothyroxi No Levothyrox ne Sodium ne Sodium ine Sodium 112 MCG 112 MCG 112 MCG Sertraline Sertraline No QD Sertraline HCl 100 MG HCl 100 MG HCl 100 MG Multivitami Multivitami No Multivitam n n in Olmesartan Olmesartan No Olmesartan Medoxomil Medoxomil Medoxomil 40 MG 40 MG 40 MG Vitamin D-3 Vitamin D-3 No Vitamin D-3 Janumet XR Janumet XR No 1{table QD Janumet XR 100-1000 MG 100-1000 MG t_with_ 100-1000 evening MG _meal} Pravastatin Pravastatin No 1{table QD Pravastati Sodium 80 Sodium 80 t} n Sodium MG MG 80 MG Multivitami Multivitami No Multivitam n n in Centrum Centrum No Centrum Silver Silver Silver Ultra Ultra Ultra [facility] - Levothyroxi Levothyroxi No Levothyrox ne Sodium ne Sodium ine Sodium 112 MCG 112 MCG 112 MCG Aspirin 81 Aspirin 81 No 1{table QD Aspirin 81 MG MG t} MG hydroCHLORO hydroCHLORO No hydroCHLOR thiazide 25 thiazide 25 Othiazide MG MG 25 MG Ezetimibe Ezetimibe No Ezetimibe 10 MG 10 MG 10 MG Biotin Biotin No Biotin Janumet XR Janumet XR No 1{table QD Janumet XR 100-1000 MG 100-1000 MG t_with_ 100-1000 evening MG _meal} Vitamin C Vitamin C No Vitamin C Olmesartan Olmesartan No Olmesartan Medoxomil Medoxomil Medoxomil 40 MG 40 MG 40 MG Vitamin D-3 Vitamin D-3 No Vitamin D-3 Aspirin 81 Aspirin 81 No Aspirin 81 Sertraline Sertraline No QD Sertraline HCl 100 MG HCl 100 MG HCl 100 MG Vitamin C Vitamin C No Vitamin C Levothyroxi Levothyroxi No Levothyrox ne Sodium ne Sodium ine Sodium 112 MCG 112 MCG 112 MCG Aspirin 81 Aspirin 81 No 1{table QD Aspirin 81 MG MG t} MG Centrum Centrum No Centrum Silver Silver Silver Ultra Ultra Ultra [facility] - Vitamin D-3 Vitamin D-3 No Vitamin D-3 Ezetimibe Ezetimibe No Ezetimibe 10 MG 10 MG 10 MG Pravastatin Pravastatin No 1{table QD Pravastati Sodium 80 Sodium 80 t} n Sodium MG MG 80 MG Multivitami Multivitami No Multivitam n n in Janumet XR Janumet XR No 1{table QD Janumet XR 100-1000 MG 100-1000 MG t_with_ 100-1000 evening MG _meal} Aspirin 81 Aspirin 81 No Aspirin 81 hydroCHLORO hydroCHLORO No hydroCHLOR thiazide 25 thiazide 25 Othiazide MG MG 25 MG Olmesartan Olmesartan No 1{table QD Olmesartan Medoxomil Medoxomil t} Medoxomil 40 MG 40 MG 40 MG Biotin Biotin No Biotin Sertraline Sertraline No QD Sertraline HCl 100 MG HCl 100 MG HCl 100 MG Centrum Centrum No Centrum Silver Silver Silver Ultra Ultra Ultra [facility] - Aspirin 81 Aspirin 81 No 1{table QD Aspirin 81 MG MG t} MG Aspirin 81 Aspirin 81 No Aspirin 81 Biotin Biotin No Biotin Ezetimibe Ezetimibe No Ezetimibe 10 MG 10 MG 10 MG Levothyroxi Levothyroxi No Levothyrox ne Sodium ne Sodium ine Sodium 112 MCG 112 MCG 112 MCG Vitamin D-3 Vitamin D-3 No Vitamin D-3 Sertraline Sertraline No QD Sertraline HCl 100 MG HCl 100 MG HCl 100 MG Multivitami Multivitami No Multivitam n n in hydroCHLORO hydroCHLORO No hydroCHLOR thiazide 25 thiazide 25 Othiazide MG MG 25 MG Olmesartan Olmesartan No Olmesartan Medoxomil Medoxomil Medoxomil 40 MG 40 MG 40 MG Vitamin C Vitamin C No Vitamin C Pravastatin Pravastatin No 1{table QD Pravastati Sodium 80 Sodium 80 t} n Sodium MG MG 80 MG Ezetimibe Ezetimibe No Ezetimibe 10 MG 10 MG 10 MG Aspirin 81 Aspirin 81 No Aspirin 81 Levothyroxi Levothyroxi No Levothyrox ne Sodium ne Sodium ine Sodium 112 MCG 112 MCG 112 MCG Aspirin 81 Aspirin 81 No 1{table QD Aspirin 81 MG MG t} MG hydroCHLORO hydroCHLORO No hydroCHLOR thiazide 25 thiazide 25 Othiazide MG MG 25 MG Vitamin D-3 Vitamin D-3 No Vitamin D-3 Sertraline Sertraline No QD Sertraline HCl 100 MG HCl 100 MG HCl 100 MG Centrum Centrum No Centrum Silver Silver Silver Ultra Ultra Ultra [facility] - Olmesartan Olmesartan No Olmesartan Medoxomil Medoxomil Medoxomil 40 MG 40 MG 40 MG Biotin Biotin No Biotin Pravastatin Pravastatin No 1{table QD Pravastati Sodium 80 Sodium 80 t} n Sodium MG MG 80 MG Vitamin C Vitamin C No Vitamin C Multivitami Multivitami No Multivitam n n in Olmesartan Olmesartan No 1{table QD Olmesartan Medoxomil Medoxomil t} Medoxomil 40 MG 40 MG 40 MG Centrum Centrum No Centrum Silver Silver Silver Ultra Ultra Ultra [facility] - Levothyroxi Levothyroxi No Levothyrox ne Sodium ne Sodium ine Sodium 112 MCG 112 MCG 112 MCG Aspirin 81 Aspirin 81 No 1{table QD Aspirin 81 MG MG t} MG hydroCHLORO hydroCHLORO No hydroCHLOR thiazide 25 thiazide 25 Othiazide MG MG 25 MG Vitamin D-3 Vitamin D-3 No Vitamin D-3 Pravastatin Pravastatin No 1{table QD Pravastati Sodium 80 Sodium 80 t} n Sodium MG MG 80 MG Sertraline Sertraline No QD Sertraline HCl 100 MG HCl 100 MG HCl 100 MG Multivitami Multivitami No Multivitam n n in Ezetimibe Ezetimibe No Ezetimibe 10 MG 10 MG 10 MG Aspirin 81 Aspirin 81 No Aspirin 81 Vitamin C Vitamin C No Vitamin C Biotin Biotin No Biotin Aspirin 81 Aspirin 81 No Aspirin 81 hydroCHLORO hydroCHLORO No hydroCHLOR thiazide 25 thiazide 25 Othiazide MG MG 25 MG Vitamin D-3 Vitamin D-3 No Vitamin D-3 Aspirin 81 Aspirin 81 No 1{table QD Aspirin 81 MG MG t} MG Vitamin C Vitamin C No Vitamin C Sertraline Sertraline No QD Sertraline HCl 100 MG HCl 100 MG HCl 100 MG Centrum Centrum No Centrum Silver Silver Silver Ultra Ultra Ultra [facility] - Levothyroxi Levothyroxi No Levothyrox ne Sodium ne Sodium ine Sodium 112 MCG 112 MCG 112 MCG Biotin Biotin No Biotin Pravastatin Pravastatin No 1{table QD Pravastati Sodium 80 Sodium 80 t} n Sodium MG MG 80 MG Olmesartan Olmesartan No 1{table QD Olmesartan Medoxomil Medoxomil t} Medoxomil 40 MG 40 MG 40 MG Multivitami Multivitami No Multivitam n n in Ezetimibe Ezetimibe No Ezetimibe 10 MG 10 MG 10 MG Centrum Centrum No Centrum Silver Silver Silver Ultra Ultra Ultra [facility] - Aspirin 81 Aspirin 81 No 1{table QD Aspirin 81 MG MG t} MG Aspirin 81 Aspirin 81 No Aspirin 81 Biotin Biotin No Biotin Ezetimibe Ezetimibe No Ezetimibe 10 MG 10 MG 10 MG Levothyroxi Levothyroxi No Levothyrox ne Sodium ne Sodium ine Sodium 112 MCG 112 MCG 112 MCG Vitamin D-3 Vitamin D-3 No Vitamin D-3 Sertraline Sertraline No QD Sertraline HCl 100 MG HCl 100 MG HCl 100 MG Multivitami Multivitami No Multivitam n n in hydroCHLORO hydroCHLORO No hydroCHLOR thiazide 25 thiazide 25 Othiazide MG MG 25 MG Olmesartan Olmesartan No Olmesartan Medoxomil Medoxomil Medoxomil 40 MG 40 MG 40 MG Vitamin C Vitamin C No Vitamin C Pravastatin Pravastatin No 1{table QD Pravastati Sodium 80 Sodium 80 t} n Sodium MG MG 80 MG Ezetimibe Ezetimibe No Ezetimibe 10 MG 10 MG 10 MG Aspirin 81 Aspirin 81 No Aspirin 81 Levothyroxi Levothyroxi No Levothyrox ne Sodium ne Sodium ine Sodium 112 MCG 112 MCG 112 MCG Aspirin 81 Aspirin 81 No 1{table QD Aspirin 81 MG MG t} MG hydroCHLORO hydroCHLORO No hydroCHLOR thiazide 25 thiazide 25 Othiazide MG MG 25 MG Vitamin D-3 Vitamin D-3 No Vitamin D-3 Sertraline Sertraline No QD Sertraline HCl 100 MG HCl 100 MG HCl 100 MG Centrum Centrum No Centrum Silver Silver Silver Ultra Ultra Ultra [facility] - Olmesartan Olmesartan No Olmesartan Medoxomil Medoxomil Medoxomil 40 MG 40 MG 40 MG Biotin Biotin No Biotin Pravastatin Pravastatin No 1{table QD Pravastati Sodium 80 Sodium 80 t} n Sodium MG MG 80 MG Vitamin C Vitamin C No Vitamin C Multivitami Multivitami No Multivitam n n in Immunizations Ordered Immunization Filled Immunization Date Status Commen ts Source Name Name FLUZONE HIGH DOSE FLUZONE HIGH DOSE 2022-03-26 [facility]pleted [facility] OVER [facility] OVER 65 14:19:00 - [facility] FLUZONE HIGH DOSE FLUZONE HIGH DOSE 2022-03-26 Completed [facility] OVER 65 OVER 65 14:19:00 - [facility] FLUZONE HIGH DOSE FLUZONE HIGH DOSE 2022-03-26 Completed [facility] OVER 65 OVER 65 14:19:00 [facility] FLUZONE HIGH DOSE FLUZONE HIGH DOSE 2022-03-26 Completed [facility] OVER 65 OVER 65 14:19:00 [facility] Vital Signs Vital Name Observation Time Observation Value Comments Source Heart rate 2022-04-24 20:36:00 60 /min [facility] Respiratory rate 2022-04-24 20:36:00 20 /min [facility] Oxygen saturation in 2022-04-24 20:36:00 92 /min [facility] Arterial blood by [facility] Pulse oximetry Branch Systolic blood 2022-04-24 20:34:00 142 mm[Hg] Un[facility] pressure [facility] Diastolic blood 2022-04-24 20:34:00 66 mm[Hg] Unive [facility] Body temperature 2022-04-24 20:04:00 36.39 Sandra [facility] Body weight 2022-04-23 21:00:00 83.915 kg [facility] BMI 2022-04-23 21:00:00 30.79 kg/m2 [facility] Heart rate 2022-04-24 20:24:00 61 /min [facility] Respiratory rate 2022-04-24 20:24:00 17 /min [facility] in 2022-04-24 20:24:00 91 /min [facility] blood by [facility] Pulse oximetry Branch Systolic blood 2022-04-24 20:19:00 130 mm[Hg] Univer [facility] Diastolic blood 2022-04-24 20:19:00 63 mm[Hg] Unive [facility] Body temperature 2022-04-24 20:04:00 36.39 Sandra Univ ersity of [facility] Body weight 2022-04-23 21:00:00 83.915 [facility] BMI 2022-04-23 21:00:00 30.79 kg/m2 [facility] height 2022-03-26 13:30:00 63 [in_i] Common [facility] weight 2022-03-26 13:30:00 180 [lb_av] [facility] temperature 2022-03-26 13:30:00 97.9 [degF] [facility] bmi 2022-03-26 13:30:00 31.88 kg/m2 [facility] oximetry 2022-03-26 13:30:00 96 % [facility] respiratory rate 2022-03-26 13:30:00 16 /min Comm on [facility] blood pressure 2022-03-26 13:30:00 128 mm[Hg] Common [facility] - systolic [facility] blood pressure 2022-03-26 13:30:00 70 mm[Hg] Common [facility] - diastolic [facility] height 2022-03-20 13:40:00 63 [in_i] Common [facility] weight 2022-03-20 13:40:00 180 [lb_av] Common [facility] temperature 2022-03-20 13:40:00 97.4 [degF] Common [facility] bmi 2022-03-20 13:40:00 31.88 kg/m2 [facility] oximetry 2022-03-20 13:40:00 94 % Common [facility] respiratory rate 2022-03-20 13:40:00 16 /min Comm on [facility] blood pressure 2022-03-20 13:40:00 128 mm[Hg] [facility] blood pressure 2022-03-20 13:40:00 74 mm[Hg] [facility] - diastolic [facility] height 2022-02-13 13:20:00 63 [in_i] Common [facility] weight 2022-02-13 13:20:00 188.4 [lb_av] Common [facility] temperature 2022-02-13 13:20:00 97.8 [degF] Common [facility] bmi 2022-02-13 13:20:00 33.37 kg/m2 [facility] oximetry 2022-02-13 13:20:00 97 % [facility] respiratory rate 2022-02-13 13:20:00 16 /min Comm on [facility] blood pressure 2022-02-13 13:20:00 134 mm[Hg] Common [facility] - systolic [facility] blood pressure 2022-02-13 13:20:00 78 mm[Hg] Common [facility] - diastolic [facility] height 2022-01-18 10:00:00 63 [in_i] [facility] weight 2022-01-18 10:00:00 187 [lb_av] [facility] temperature 2022-01-18 10:00:00 98.6 [degF] Common S [facility] bmi 2022-01-18 10:00:00 33.12 kg/m2 [facility] height 2022-01-16 13:20:00 63 [in_i] Common S [facility] weight 2022-01-16 13:20:00 187 [lb_av] [facility] temperature 2022-01-16 13:20:00 98.5 [degF] [facility] bmi 2022-01-16 13:20:00 33.12 kg/m2 Common S [facility] - [facility] oximetry 2022-01-16 13:20:00 95 % [facility] - [facility] respiratory rate 2022-01-16 13:20:00 16 /min Comm on [facility] blood pressure 2022-01-16 13:20:00 134 mm[Hg] [facility] - systolic [facility] blood pressure 2022-01-16 13:20:00 74 mm[Hg] [facility] - diastolic [facility] Body height 2022-06-26 14:39:00 165.1 cm [facility] Body weight 2022-06-26 14:39:00 83.008 kg [facility] BMI 2022-06-26 14:39:00 30.45 kg/m2 [facility] Systolic blood 2021-11-29 14:37:00 152 mm[Hg] [facility] pressure Diastolic blood 2021-11-29 14:37:00 84 mm[Hg] [facility] pressure Heart rate 2021-11-29 14:37:00 70 /min [facility] Body temperature 2021-11-29 14:37:00 36.17 Sandra Meth odist [facility] Procedures Procedure Date / Time Performing Source Performed Clinician US ABDOMEN COMPLETE 2022-07-26 [facility] o f 18:19:00 [facility] ESOPHAGOGASTRODUODENOSCOPY 2022-04-24 [facility] 19:38:00 [facility] EGD (ENDO) 2022-04-24 [facility] of 19:29:04 [facility] EGD (ENDO) 2022-04-24 [facility] of 19:29:04 [facility] POCT GLUCOSE (AUTOMATED) 2022-04-24 [facility] ity of 18:21:00 [facility] POCT GLUCOSE (AUTOMATED) 2022-04-24 [facility] ity of 18:21:00 [facility] PATIENT QUESTIONNAIRE 2022-04-24 [facility] of 05:01:00 Unassigned, No [facility] DAY SURGERY - ADC 2022-04-24 Doctor Liu of 05:01:00 Unassigned, No [facility] EXTERNAL PROVIDER RECORDS 2022-04-23 Doctor Bridger tran of 05:01:00 Unassigned, No [facility] EXTERNAL PROVIDER RECORDS 2022-04-23 Doctor [facility] of 05:01:00 Unassigned, No [facility] History of [facility]nee [facility] 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 Plan of Care Planned Activity Planned Date Details Comments Source Future Scheduled 2022-07-29 COVID-19 VACCINE (#1) [facility] Test 09:04:57 [code = COVID-19 VACCINE (#1)] Future Scheduled 2022-07-29 65+ PNEUMOCOCCAL Methodi [facility] Test 09:04:57 VACCINE (1 - PCV) [code = 65+ PNEUMOCOCCAL VACCINE (1 - PCV)] Future Scheduled 2022-07-29 DIABETES: RETINAL EYE [facility] Test 09:04:57 EXAM [code = DIABETES: RETINAL EYE EXAM] Future Scheduled 2022-07-29 DIABETIC FOOT EXAM [facility] Test 09:04:57 [code = DIABETIC FOOT EXAM] Future Scheduled 2022-07-29 URINE MICROALBUMIN [facility] Test 09:04:57 [code = URINE MICROALBUMIN] Future Scheduled 2022-07-29 SHINGLES VACCINES (2 Met [facility] Test 09:04:57 of 3) [code = SHINGLES VACCINES (2 of 3)] Encounters Start End Encounter Admission Attending Care Care Encounter Source Date/Time Date/Time Type Type Clinicians Facility Department ID 2022-07-26 Outpatient SCOTT Newby [facility] [id number] Common 08:29:01 Desirae [id number] [facility] 2022-03-11 Outpatient R TRUDY [facility] [id number] Univers 14:03:56 STEPHANIE Senior of [facility] 2022-02-11 Outpatient SCOTT Newby [facility] [id number] Common 11:46:01 Desirae [facility] 2022-01-16 Outpatient SCOTT Newby [facility] [id number] Common 13:06:02 Desirae [facility] 2022-07-26 2022-07-26 Outpatient R [facility] [id number] Univers 10:41:22 23:59:00 STEPHANIE Senior [facility] 2022-07-26 2022-07-26 [facility] [id number] Univers 10:41:22 23:59:00 [facility] [id number] maureen [facility] 4.2.7.2.686 [facility] [id number] [facility] 8[address] Branch 2022-07-26 2022-07-26 (TEL) STLMLC STLMLC [id number] Co mmon 00:00:00 00:00:00 [facility] 2022-06-26 2022-06-26 Telephone Chandra, 1.2.840.1 [id number] Methodi 10:00:00 11:43:49 Consult Mohammad 22546.1.[address] [place] 3.430.2.7 Hospit a .3.286077 l .8 2022-06-26 2022-06-26 [facility] [id number] [place] 00:00:00 00:00:[address] 2022-06-25 2022-06-25 Travel 1.2.840.1 [id number] [id number] Methodi 00:00:00 00:00:[address] 3.430.2.7 0.2.7.3.698 Ho spita .3.627266 084.8 l .8 2022-06-20 2022-06-20 Refill Chandra, 1.2.840.1 [id number] Methodi 00:00:00 00:00:[address] [place] 3.430.2.7 Hospit a .3.199757 l .8 2022-04-30 2022-04-30 (TEL) STLMLC STLMLC [id number] Co mmon 00:00:00 00:00:00 [facility] - [facility] 2022-04-24 2022-04-24 Outpatient R [facility] [id number] Univers 13:00:00 15:43:00 STEPHANIE Senior [facility] 2022-04-24 2022-04-24 [facility] [id number] Univers 13:00:00 15:43:00 Encounter Stephanie seniorTON 350.1.13.10 [place] [id number] [facility] [address] 2022-04-24 2022-04-24 Surgery [facility] 1.2.840.114 [id number] Univers 14:50:00 15:24:00 Stephanie senior 350.1.13.10 [place] [id number] [facility] 020 Branch 2022-03-26 2022-03-26 OFFICE STLMLC STLMLC [id number] Co mmon 00:00:00 00:00:00 VISIT Spirit ESTAB PT - CHI LEVEL 1 [facility] 2022-03-20 2022-03-20 OFFICE STLMLC STLMLC [id number] Co mmon 00:00:00 00:00:00 [facility] ESTAB PT - CHI LEVEL 4 [facility] 2022-03-11 2022-03-11 Outpatient R [facility] [id number] Univers 13:15:00 13:15:00 [id number] ity of [facility] 2022-03-11 2022-03-11 Outpatient R [facility] [id number] Univers 13:15:00 13:15:00 STEPHANIE Senior [facility] 2022-02-27 2022-02-27 (TEL) STLMLC STLMLC [id number] Co mmon 00:00:00 00:00:00 [facility] - [facility] 2022-02-13 2022-02-13 OFFICE STLMLC STLMLC [id number] Co mmon 00:00:00 00:00:00 VISIT EST Spir it PT LEVEL 3 - [facility] 2022-01-18 2022-01-18 (MCR WELL) STLMLC STLMLC [id number] Common 00:00:00 00:00:00 Medicare Spiri t Wellness - [facility] 2022-01-16 2022-01-16 [facility] [id number] Co mmon 00:00:00 00:00:00 VISIT NEW Spir it PT LEVEL 4 - [facility] 2021-12-10 2021-12-10 Telephone Romano, 1.2.840.1 [id number] Methodi 00:00:00 00:00:00 Sandra Lemos [address].1.[address] 3.430.2.7 Hospit a .3.070723 l .8 2021-12-10 2021-12-10 Travel 1.2.840.1 1.2.368.734 [id number] Methodi 00:00:00 00:00:[address] 3.430.2.7 0.2.7.3.698 Ho spita .3.378539 084.8 l .8 2021-11-29 2021-11-29 Office Malathi, 1.2.840.1 [id number] Methodi 09:30:00 10:45:20 Visit Jackie 62677.1.[address] [place] 3.430.2.7 Hospit a .3.188851 l .8 2021-11-29 2021-11-29 Outpatient [facility] [id number] [place] 00:00:00 00:00:[address]ACKIE [address] 2021-11-29 2021-11-29 Travel 1.2.840.1 1.2.612.983 [id number] Methodi 00:00:00 00:00:[address] 3.430.2.7 0.2.7.3.698 Ho spita .3.333542 084.8 l .8 2021-11-21 2021-11-21 Telephone Neris, 1.2.840.1 [id number] Methodi 00:00:00 00:00:00 Sandra Lemos [address]0003.1.[address] 3.430.2.7 Hospit a .3.092708 l .8 2021-07-18 2021-07-18 Outpatient [facility] [id number] [place] 00:00:00 00:00:00 MOHAMMAD [address] 2021-03-19 2021-03-19 [facility] [id number] [place] 00:00:00 00:00:00 MOHAMMAD [address] 2020-11-13 2020-11-13 [facility] [id number] [place] 00:00:00 00:00:00 MOHAMMAD [address] 2020-07-11 2020-07-11 [facility] [id number] [place] 00:00:00 00:00:00 SANDRA [address] 2020-07-05 2020-07-05 [facility] [id number] [place] 00:00:00 00:00:00 MOHAMMAD [address] 2020-06-06 2020-06-06 [facility] [id number] [place] 00:00:00 00:00:00 SANDRA [address] 2020-05-30 2020-05-30 [facility] [id number] 458 [place] 00:00:00 00:00:00 SANDRA [address] 2020-02-24 2020-02-24 Outpatient [facility] [id number] [place] 00:00:00 00:00:00 MOHAMMAD [address] 2020-02-24 2020-02-24 Outpatient [facility] [id number] [place] 00:00:00 00:00:00 MOHAMMAD [address] 2019-12-07 2019-12-07 Rena CARR [facility] Orthopedics [id number] [place] 14:00:00 14:00:00 t; Maritza RODARTE - Sugar Ph shannon CARR, Aurelia 1 ans Maritza RODARTE 2019-11-19 2019-11-22 Outpatient [facility]DRA [facility] [id number] [place] 00:00:00 00:00:00 JACKIE Omid mendosa 2018-11-07 2018-11-07 Emergency E [facility]BL [facility] [id number] [facility] 17:21:00 17:21:00 Results Test Description Test Time Test Comments Results Result Comments Source POCT GLUCOSE (AUTOMATED) 2022-04-24 18:34:59 Test Item Value Reference Range Interpretation Comme nts POCT GLU (test code = 0418320925) 98 mg/dL 70-110 Lab Interpretation (test code = 47351-7) [facility] 18:34:59 Test Item Value Reference Range Interpretation Comments POCT GLU (test code = [id number]) 98 mg/dL 70-110 Lab Interpretation (test code = Normal 10691-2) [facility]
[2022-08-05 09:05] LABS: Absolute Lymphocytes (CBC) 1.8 K/uL (0.7-4.9); Hematocrit 39.8 % (36.0-45.0); Lymphocytes % 31.1 % (15.3-44.8); MCV 89.9 fL (80-100); MPV 8.3 fL (7.6-11.3); RBC Red Blood Cell Count 4.43 M/uL (3.86-4.86)
[2022-08-05 09:09] LABS: Protime INR 0.98
[2022-08-05 09:21] LABS: Potassium 3.8 mmol/L (3.5-5.1); Troponin High Sensitivity 7.2 pg/mL (<58.9)
--- NOTE | 2022-08-05 09:23 | RAD REPORT ---
EXAM DESCRIPTION: CT - Ct Stroke Brain Wo Cont - 08/05/2022 9:17 am CLINICAL HISTORY: STROKE ALERT Headache, CVA COMPARISON: Head angio dated 08/05/2022 TECHNIQUE: All CT scans are performed using dose optimization technique as appropriate and may inclu de automated exposure control or mA/KV adjustment according to patient size. FINDINGS: No intracranial hemorrhage, hydrocephalus or extra-axial fluid collection.Mild brain atrop hy appearNo areas of brain edema or evidence of midline shift. The paranasal sinuses and mastoids are clear. The calvarium is intact. IMPRESSION: No acute intracranial abnormality. The findings were discussed with Dr. Ricci in the ER On 08/05/2022 at 9:19 a.m. by telephone.
--- NOTE | 2022-08-05 09:36 | RAD REPORT ---
EXAM DESCRIPTION: CT - Head angio - 08/05/2022 9:17 am CLINICAL HISTORY: WEAKNESS Headache, drowsiness COMPARISON: No comparisons TECHNIQUE: CT angiography of the head was performed with MIPs. All CT scans are performed using dose optimization technique as appropriate and may include automated exposure control or mA/KV adjustment according to patient size. FINDINGS: No evidence of aneurysm is detected. No flow-limiting stenosis or vascular malformation id entified. Antegrade flow is seen in the vertebral arteries. The vertebral arteries are codominant. The visualized dural venous sinuses are patent. IMPRESSION: No significant flow abnormality is detected.
[2022-08-05] MEDS ORDERED: ASPIRIN 81 MG CHEWABLE TABLET ONE (09:38)
--- NOTE | 2022-08-05 09:38 | RAD REPORT ---
EXAM DESCRIPTION: CT - Neck Angio - 08/05/2022 9:17 am CLINICAL HISTORY: HEADACHE Headache, CVA COMPARISON: No comparisons TECHNIQUE: CT angiography of the neck vessels was performed with MIPs. All CT scans are performed using dose optimization technique as appropriate and may include automated exposure control or mA/KV adjustment according to patient size. FINDINGS: A left aortic arch is identified with normal three vessel configuration of the great vesse ls. No significant flow abnormality is seen of the common carotid bilaterally. Small soft plaque is seen left carotid bulb. No significant carotid stenosis identified. Normal flow is seen within both vertebral arteries. IMPRESSION: No significant flow abnormality of the neck vessels is identified. Small soft plaque left carotid bulb does not result in significant flow altering stenosis.
--- NOTE | 2022-08-05 09:39 | RAD REPORT ---
EXAM DESCRIPTION: RAD - Chest Single View - 08/05/2022 9:25 am CLINICAL HISTORY: CHEST PAIN Chest pain. COMPARISON: Chest Pa And Lat (2 Views) dated 11/06/2018; Chest Pa And Lat (2 Views) dated 11/05/2018; Chest Single View dated 11/04/2018; Chest Single View dated 11/03/2018 FINDINGS: Portable technique limits examination quality. The lungs are emphysematous grossly clear. The heart is normal in size. No displaced fractures.Sterno garfield wires. IMPRESSION: No acute intrathoracic process suspected.
--- NOTE | 2022-08-05 09:52 | ER ---
Nurse's Notes [facility] Name: Edda Norwood Age: 82 yrs Sex: Female : 1940 Arrival Date: 08/05/2022 Time: 08:33 Bed 14 Private MD: Diagnosis: Transient cerebral ischemic attack, unspecified Presentation: 08/05 08:22 Chief complaint: EMS states: at about 0700 this morning pt woke up and went to open [facility] blinds and noticed weakness to Right arm and a headache. At time of h/a rated 8/10, stated 0/10 pain now; EMS stated symptoms of right arm resolved in route. Pt has not eaten or drank since last night and has not taken morning med, stated is on Plavix. 08:22 Coronavirus screen: Vaccine status: Patient reports being unvaccinated. Client denies [facility] travel out of the [place] in the last 14 days. Ebola Screen: Patient negative for fever greater than or equal to 101.5 degrees Fahrenheit, and additional compatible Ebola Virus Disease symptoms. Initial Sepsis Screen: Does the patient meet any 2 criteria? Yes Does the patient have a suspected source of infection? No. Patient's initial sepsis screen is negative. Risk Assessment: Do you want to hurt yourself or someone else? Patient reports no desire to harm self or others. 08:22 Method Of Arrival: EMS: [facility] 08:22 Acuity: ARLETTE 2 vg1 08:22 Care prior to arrival: IV initiated. 18 GA, in the right antecubital area, Glucose vg1 check: 124. 08:22 Onset of symptoms was August 04, 2022 at 22:30. vg1 08:22 No acute neurological deficit is noted. The patients blood glucose was checked before [facility] arriving to the hospital and was found to be normal. Triage Assessment: 08:25 Headache History: The patient has had previous headaches and this one is similar to vg1 previous episodes. General: Appears in no apparent distress. comfortable, Behavior is calm, cooperative. Pain: Denies pain. Complains of pain in head Pain currently is 0 out of 10 on a pain scale. at worst was 8 out of 10 on a pain scale. Pain began this morning around 0700 Also complains of no other associated symptoms. EENT: No signs and/or symptoms were reported regarding the EENT system. Neuro: Level of Consciousness is awake, alert, obeys commands, Oriented to person, place, time, situation, Blood Bank Order Control Clerk are equal bilaterally Moves all extremities. Gait is unable to assess at this time. Speech is normal, Facial symmetry appears normal, Pupils are PERRLA, Intact. Cardiovascular: Patient's skin is warm and dry. Respiratory: Airway is patent Respiratory effort is even, unlabored. GI: Abdomen is flat, Patient currently denies nausea, vomiting. : No signs and/or symptoms were reported regarding the genitourinary system. Derm: Skin is pink, warm \T\ dry. Skin temperature is warm. Musculoskeletal: Circulation, motion, and sensation intact. Stroke Activation: Symptom onset > 6 hours Physician: Stroke Attending; Name: ; Notified At: ; Arrived At: Physician: Chief Stroke Resident; Name: ; Notified At: ; Arrived At: Physician: Stroke Resident; Name: ; Notified At: ; Arrived At: Physician: ED Attending; Name: ; Notified At: ; Arrived At: Physician: ED Resident; Name: ; Notified At: ; Arrived At: Historical: - Allergies: 08:40 Erythromycin; vg1 - Home Meds: 08:40 Metformin Oral [Active]; olmesartan oral [Active]; Glipizide Oral [Active]; vg1 levothyroxine oral [Active]; sertraline oral [Active]; pravastatin oral [Active]; ezetimibe oral [Active]; Hydrochlorothiazide Oral [Active]; Aspirin Oral [Active]; biotin oral [Active]; Vitamin B-12 Oral [Active]; Magnesium Oxide Oral [Active]; clopidogrel oral [Active]; - PMHx: 08:40 High Cholesterol; Hypertension; Thyroid problem; TIA; Diabetes mellitus; vg1 - PSHx: 08:40 Right Knee; vg1 - Immunization history:: Client reports having NOT received the Covid vaccine. - Social history:: Smoking status: Patient denies any tobacco usage or history of. Screenin:[address] [facility] ED Fall Risk Assessment (Adult) History of falling in the last 3 months, vg1 including since admission No falls in past 3 months (0 pts) Confusion or Disorientation No (0 pts) Intoxicated or Sedated No (0 pts) Impaired Gait No (0 pts) Mobility Assist Device Used No (0 pt) Altered Elimination No (0 pt) Score/Fall Risk Level 0 - 2 = Low Risk Oriented to surroundings, Maintained a safe environment, Educated pt \T\ family on fall prevention, incl call for assistance when getting out of bed, Assessed \T\ reinforced patient's understanding of fall precautions, Hourly rounding (assess needs \T\ fall precautionary measures) done. Abuse screen: Denies threats or abuse. Nutritional screening: No deficits noted. Tuberculosis screening: No symptoms or risk factors identified. Assessment: 08:22 Reassessment: SEE TRIAGE. vg1 08:55 Reassessment: Pt last known well was at about 2230 on 08/04/22; Pt woke up at 0700 to vg1 open up blinds and noticed Right arm weakness; symptoms have since resolved. Bedside swallow screen, PASS. Provider notified. 08:55 VAN Scoring: Arm Drift: Patients demonstrates NO arm weakness. Patient is VAN Negative. vg1 Patient has been NPO before screening. The patient is alert, and able to follow commands. The patient does not exhibit slurred or garbled speech. The patient is not exhibiting difficulty speaking. The patient does not exhibit difficulty understanding words. The patient is able to swallow own secretions with no drooling or need for suction. Patient tolerated one teaspoon of water. No drooling, immediate coughing, gurgling, or clearing of the throat was noted. The patient tolerated 90mL of water. No drooling, immediate coughing, gurgling, or clearing of the throat was noted. The patient passed the bedside swallow screening. Oral medications may be given as ordered. Contact Physician for further diet orders. Provider notified of bedside swallow screening results: Edward Sotelo MD. 08:55 TNKase (Tenecteplase) Screening: Indications: Treatment will start within 4.5 hours vg1 onset of symptoms: No. Contraindications: Is the patient on Aspirin, Heparin, or Warfarin: Yes. 09:27 Reassessment: Patient appears in no apparent distress at this time. No changes from vg1 previously documented assessment. Patient and/or family updated on plan of care and expected duration. Pain level reassessed. Patient is alert, oriented x 3, equal unlabored respirations, skin warm/dry/pink. transported back from [place]; pt stated became nauseated when contrast was administered, stated not needing any medications at this time. Patient denies pain at this time. 10:30 Reassessment: Patient appears in no apparent distress at this time. Patient and/or vg1 family updated on plan of care and expected duration. Pain level reassessed. Patient is alert, oriented x 3, equal unlabored respirations, skin warm/dry/pink. Patient denies pain at this time. Neuro: Level of Consciousness is awake, alert, obeys commands, Oriented to person, place, time, situation, Blood Bank Order Control Clerk are equal bilaterally Moves all extremities. Speech is normal, Facial symmetry appears normal, Intact. 11:30 Reassessment: Patient appears in no apparent distress at this time. No changes from vg1 previously documented assessment. Patient and/or family updated on plan of care and expected duration. Pain level reassessed. Patient is alert, oriented x 3, equal unlabored respirations, skin warm/dry/pink. 12:40 Reassessment: Patient appears in no apparent distress at this time. No changes from vg1 previously documented assessment. Patient is alert, oriented x 3, equal unlabored respirations, skin warm/dry/pink. PT TRANSPORTED TO [facility] VIA WHEELCHAIR. 13:54 Reassessment: Patient appears in no apparent distress at this time. Patient is alert, vg1 oriented x 3, equal unlabored respirations, skin warm/dry/pink. PT TRANSPORTED BACK FROM [facility]; pt was able to walk to bathroom and back to bed; pt denies any pain. Vital Signs: 08:22 BP 125 / 67; Pulse 69; Resp 16; Temp 98.7(O); Pulse Ox 97% on R/A; Weight 81.65 kg; vg1 Height 5 ft. 4 in. (162.56 cm); Pain 0/10; 08:30 BP 112 / 52; Pulse 65; Resp 17; Pulse Ox 96% on R/A; vg1 08:45 BP 119 / 65; Pulse 69; Resp 16; Pulse Ox 94% on R/A; vg1 09:24 BP 117 / 62; Pulse 80; Resp 15; Pulse Ox 98% on R/A; vg1 09:45 BP 121 / 63; Pulse 72; Resp 16; Pulse Ox 97% on R/A; vg1 10:00 BP 128 / 72; Pulse 73; Resp 19; Pulse Ox 98% on R/A; vg1 10:15 BP 125 / 64; Pulse 62; Resp 19; Pulse Ox 96% on R/A; vg1 10:30 BP 125 / 71; Pulse 61; Resp 17; Pulse Ox 97% on R/A; vg1 10:45 BP 121 / 66; Pulse 63; Resp 17; Pulse Ox 96% on R/A; vg1 11:00 BP 118 / 65; Pulse 64; Resp 20; Pulse Ox 96% on R/A; vg1 11:53 BP 104 / 67; Pulse 63; Resp 18; Pulse Ox 99% on R/A; vg1 12:00 BP 129 / 72; Pulse 72; Resp 18; Pulse Ox 98% on R/A; vg1 12:15 BP 128 / 59; Pulse 70; Resp 17; Pulse Ox 96% on R/A; vg1 12:30 BP 124 / 61; Pulse 65; Resp 15; Pulse Ox 96% on R/A; vg1 13:57 BP 135 / 60; Pulse 66; Resp 16; Pulse Ox 99% on R/A; vg1 08:22 Body Mass Index 30.90 (81.65 kg, 162.56 cm) vg1 NIH Stroke Scale Scores: 08:22 NIHSS Score: 0 vg1 ED Course: 08:25 Arm band placed on. vg1 08:33 Patient arrived in ED. vg1 08:35 Edward Sotelo MD is Attending Physician. bs3 08:40 Triage completed. vg1 08:47 Renita Rowe, RN is Primary Nurse. vg1 08:49 Patient has correct armband on for positive identification. Placed in gown. Bed in low vg1 position. Call light in reach. Side rails up X2. Adult w/ patient. Client placed on continuous cardiac and pulse oximetry monitoring. NIBP monitoring applied. 09:52 Gurinder Saldaña is Hospitalizing Provider. bs3 13:57 No provider procedures requiring assistance completed. Patient admitted, IV remains in vg1 place. Administered Medications: 09:38 Drug: Aspirin Chewable Tablet 324 mg Route: PO; vg1 10:57 Follow up: Response: No adverse reaction vg1 Medication: 08:51 VIS not applicable for this client. vg1 Point of Care Testing: Blood Glucose: 08:22 Blood Glucose: 124 mg/dL; vg1 Ranges: Outcome: 09:52 Decision to Hospitalize by Provider. bs3 13:56 Admitted to Tele accompanied by tech, via wheelchair, room 410, with chart, Report vg1 called to Nanette MORIN 13:56 Condition: good 13:56 Instructed on the need for admit. 14:17 Patient left the ED. vg1 NIH Stroke Scale - NIH Stroke Score Date: 08/05/2022 Time: 08:22 Total Score = 0 1a. Level of Consciousness (LOC) - 0(Alert) 1b. Level of Consciousness (LOC) (Month \T\ Age) - 0(Both) 1c. LOC Commands (Open \T\ Closes Eyes/Rn Cvicu) - 0(Both) 2. Best Gaze (Lateral Gaze Paresis) - 0(Normal) 3. Visual Field Loss - 0(No visual loss) 4. Facial Palsy - 0(Normal) 5a. Left Arm: Motor (10-second hold) - 0(No drift) 5b. Right Arm: Motor (10-second hold) - 0(No drift) 6a. Left Leg: Motor (5-second hold - always test supine) - 0(No drift) 6b. Right Leg: Motor (5-second hold - always test supine) - 0(No drift) 7. Limb Ataxia (finger/nose \T\ heel/stiles - test with eyes open) - 0(Absent) 8. Sensory Loss (pinprick arms/legs/face) - 0(Normal) 9. Best Language: Aphasia (description/naming/reading) - 0(No aphasia) 10. Dysarthria (speech clarity - read or repeat words) - 0(Normal) 11. Extinction and Inattention (visual/tactile/auditory/spatial/personal) - 0(No abnormality) Initials: vg1 Signatures: Renita Rowe RN RN vg1 Edward Sotelo MD MD bs3 Corrections: (The following items were deleted from the chart) 09:01 08:22 Onset of symptoms was August 05, 2022 at 07:00 vg1 vg1 09:05 08:55 Reassessment: Pt last known well was at about 2230 on 08/04/22; right arm vg1 weakness began this morning around 0700. Has since resolved. Bedside swallow screen, PASS. Provider notified. vg1
--- NOTE | 2022-08-05 09:52 | EDPHYS ---
Physician Documentation [facility] Name: Edda Norwood Age: 82 yrs Sex: Female : 1940 Arrival Date: 08/05/2022 Time: 08:33 Bed 14 Private MD: ED Physician Edward Sotelo HPI: 08/05 08:47 This 82 yrs old Female presents to ER via EMS with complaints of Right arm bs3 weakness, Headache. 08:47 82yo hx of cad sp cabg, htn, dm, hld presents with a headache all night and right arm bs3 weakness this morning. Last normal time was when she went to bed. She woke up and couldn't open her blinds because of weakness, the symptoms resolved over approximately 15 min. She notes 2 similar episodes in the past week but related to her hand. PCP placed her on palvix for this. Her headache has resolved as well. No fever chills difficulty breahting or swallowing. Historical: - Allergies: 08:40 Erythromycin; vg1 - Home Meds: 08:40 Metformin Oral [Active]; olmesartan oral [Active]; Glipizide Oral [Active]; vg1 levothyroxine oral [Active]; sertraline oral [Active]; pravastatin oral [Active]; ezetimibe oral [Active]; Hydrochlorothiazide Oral [Active]; Aspirin Oral [Active]; biotin oral [Active]; Vitamin B-12 Oral [Active]; Magnesium Oxide Oral [Active]; clopidogrel oral [Active]; - PMHx: 08:40 High Cholesterol; Hypertension; Thyroid problem; TIA; Diabetes mellitus; vg1 - PSHx: 08:40 Right Knee; vg1 - Immunization history:: Client reports having NOT received the Covid vaccine. - Social history:: Smoking status: Patient denies any tobacco usage or history of. ROS: 08:47 Constitutional: Negative for fever, chills bs3 08:47 All other systems are negative. Exam: 08:47 Constitutional: This is a well developed, well nourished patient who is awake, alert, bs3 and in no acute distress. Head/Face: Normocephalic, atraumatic. Eyes: Pupils equal round and reactive to light, extra-ocular motions intact. Lids and lashes normal. ENT: mmm, no posterior phyarngeal erythema Neck: Trachea midline, no thyromegaly, no neck stiffness Chest/axilla: Normal chest wall appearance and motion. Nontender with no deformity. No lesions are appreciated. Cardiovascular: Regular rate and rhythm with a normal S1 and S2. symmetric pulses in upper extremities Respiratory: Lungs have equal breath sounds bilaterally, clear to auscultation, no respiratory distress Skin: Warm, dry with normal turgor. Normal color with no rashes, no lesions, and no evidence of cellulitis. MS/ Extremity: Pulses equal, no cyanosis. Neurovascular intact. Full, normal range of motion. Neuro: Awake and alert, GCS 15, oriented to person, place, time, and situation. Cranial nerves II-XII grossly intact. Motor strength 5/5 in all extremities. Sensory grossly intact. NIH 0, no weakness in her extremitiry at this time, normal naming, normal repetition, Psych: Awake, alert, with orientation to person, place and time. Behavior, mood, and affect are within normal limits. Vital Signs: 08:22 BP 125 / 67; Pulse 69; Resp 16; Temp 98.7(O); Pulse Ox 97% on R/A; Weight 81.65 kg; vg1 Height 5 ft. 4 in. (162.56 cm); Pain 0/10; 08:30 BP 112 / 52; Pulse 65; Resp 17; Pulse Ox 96% on R/A; vg1 08:45 BP 119 / 65; Pulse 69; Resp 16; Pulse Ox 94% on R/A; vg1 09:24 BP 117 / 62; Pulse 80; Resp 15; Pulse Ox 98% on R/A; vg1 09:45 BP 121 / 63; Pulse 72; Resp 16; Pulse Ox 97% on R/A; vg1 10:00 BP 128 / 72; Pulse 73; Resp 19; Pulse Ox 98% on R/A; vg1 10:15 BP 125 / 64; Pulse 62; Resp 19; Pulse Ox 96% on R/A; vg1 10:30 BP 125 / 71; Pulse 61; Resp 17; Pulse Ox 97% on R/A; vg1 10:45 BP 121 / 66; Pulse 63; Resp 17; Pulse Ox 96% on R/A; vg1 11:00 BP 118 / 65; Pulse 64; Resp 20; Pulse Ox 96% on R/A; vg1 11:53 BP 104 / 67; Pulse 63; Resp 18; Pulse Ox 99% on R/A; vg1 12:00 BP 129 / 72; Pulse 72; Resp 18; Pulse Ox 98% on R/A; vg1 12:15 BP 128 / 59; Pulse 70; Resp 17; Pulse Ox 96% on R/A; vg1 12:30 BP 124 / 61; Pulse 65; Resp 15; Pulse Ox 96% on R/A; vg1 13:57 BP 135 / 60; Pulse 66; Resp 16; Pulse Ox 99% on R/A; vg1 08:22 Body Mass Index 30.90 (81.65 kg, 162.56 cm) vg1 NIH Stroke Scale Scores: 08:22 NIHSS Score: 0 vg1 MDM: 08:35 Patient medically screened. bs3 08:47 Differential diagnosis: cerebral abscess, cervical epidural bleed, cluster headache, bs3 cerebral vascular accident, meningitis, meningoencephalitis, migraine, trigeminal neuralgia. Data reviewed: vital signs, nurses notes. Consideration of Admission/Observation Will discuss with Dr. Martinez. ED course: given rapidly resolving symptoms and NIH of 0, will not give tenectaplase, given several similar TIA recently, will plan to admit for workup. 09:24 ED course: Disucssed with Dr. Montilla who agrees with admission for further workup. bs3 09:35 ED course: ecg nsr [address] elevation or depression qtc 431. bs3 09:36 Independent interpretation of the following test(s) in the Emergency Department CT bs3 Scan: My interpretation is no ich. Discussion of test interpretation with radiology: I had a discussion with radiology regarding a test interpretation. no acute bleed. 09:45 ED course: workup non diag, pt feeling well, will admit for r/o. bs3 02 08:45 Order name: Basic Metabolic Panel bs3 08/05 08:45 Order name: CBC with Diff bs3 08/05 08:45 Order name: High Sensitivity Troponin bs3 08/05 08:45 Order name: Protime (+inr) bs3 08/05 08:45 Order name: Ptt, Activated bs3 08/05 09:09 Order name: Protime (+INR); Complete Time: 09:27 EDMS 08/05 09:09 Order name: PTT, Activated Partial Thromb; Complete Time: 09:27 EDMS 08/05 09:20 Order name: CBC with Automated Diff; Complete Time: 09:27 EDMS 08/05 09:21 Order name: Basic Metabolic Panel; Complete Time: 09:27 EDMS 08/05 09:21 Order name: Troponin High Sensitivity; Complete Time: 09:27 EDMS 08/05 09:35 Order name: SARS-COV-2 Antigen Rapid 3 08/05 10:02 Order name: CREATININE WHOLE BLOOD EDWA 08/05 10:20 Order name: SARS-COV-2 Antigen Rapid EDMS 08/05 13:24 Order name: NT PRO-BNP EDMS 08/05 08:45 Order name: CT Stroke Brain w/o Contrast bs3 08/05 08:45 Order name: Stroke CXR 1 View bs3 08/05 08:45 Order name: CT Head Angio bs3 08/05 08:45 Order name: CT Neck Angio bs3 08/05 09:23 Order name: CT; Complete Time: 09:27 EDWA 08/05 09:37 Order name: CT EDMS 08/05 09:39 Order name: CT EDMS 08/05 09:40 Order name: RAD EDMS 08/05 13:24 Order name: Lipid Profile EDWA 08/05 13:28 Order name: Hemoglobin A1c EDWA 08/05 13:30 Order name: MRI EDWA 08/05 13:33 Order name: Phosphorus EDWA 08/05 13:33 Order name: T4 Free EDWA 08/05 13:33 Order name: Magnesium EDWA 08/05 13:33 Order name: Thyroid Stimulating Hormone EDWA 08/05 14:09 Order name: US EDWA 08/05 08:45 Order name: EKG; Complete Time: 08:46 bs3 08/05 08:45 Order name: Accucheck; Complete Time: 08:54 bs3 08/05 08:45 Order name: Cardiac monitoring; Complete Time: 08:52 bs3 08/05 08:45 Order name: EKG - Nurse/Tech; Complete Time: 08:52 bs3 08/05 08:45 Order name: IV Saline Lock; Complete Time: 08:52 bs3 08/05 08:45 Order name: Labs collected and sent; Complete Time: 08:52 3 08/05 08:45 Order name: NPO; Complete Time: 08:52 bs3 08/05 08:45 Order name: O2 Per Protocol; Complete Time: 08:52 bs3 08/05 08:45 Order name: O2 Sat Monitoring; Complete Time: 08:52 bs3 08/05 08:45 Order name: Stroke Swallow Screen; Complete Time: 08:57 bs3 Administered Medications: 09:38 Drug: Aspirin Chewable Tablet 324 mg Route: PO; vg1 10:57 Follow up: Response: No adverse reaction vg1 Point of Care Testing: Blood Glucose: 08:22 Blood Glucose: 124 mg/dL; vg1 Ranges: Critical Glucose Levels:Adult <50 mg/dl or >400 mg/dl <40 mg/dl or >180 mg/dl Disposition Summary: 08/05/22 09:52 Hospitalization Ordered Hospitalization Status: Inpatient Admission bs3 Provider: Gurinder Saldaña bs3 Location: Telemetry/MedSurg (observation) bs3 Condition: Stable bs3 Problem: new bs3 Symptoms: are resolved bs3 Bed/Room Type: Standard bs3 Room Assignment: 410(08/05/22 13:26) bd Diagnosis - Transient cerebral ischemic attack, unspecified bs3 Forms: - Medication Reconciliation Form bs3 - SBAR form bs3 NIH Stroke Scale - NIH Stroke Score Date: 08/05/2022 Time: 08:22 Total Score = 0 1a. Level of Consciousness (LOC) - 0(Alert) 1b. Level of Consciousness (LOC) (Month \T\ Age) - 0(Both) 1c. LOC Commands (Open \T\ Closes Eyes/Medical Support Specialist) - 0(Both) 2. Best Gaze (Lateral Gaze Paresis) - 0(Normal) 3. Visual Field Loss - 0(No visual loss) 4. Facial Palsy - 0(Normal) 5a. Left Arm: Motor (10-second hold) - 0(No drift) 5b. Right Arm: Motor (10-second hold) - 0(No drift) 6a. Left Leg: Motor (5-second hold - always test supine) - 0(No drift) 6b. Right Leg: Motor (5-second hold - always test supine) - 0(No drift) 7. Limb Ataxia (finger/nose \T\ heel/stiles - test with eyes open) - 0(Absent) 8. Sensory Loss (pinprick arms/legs/face) - 0(Normal) 9. Best Language: Aphasia (description/naming/reading) - 0(No aphasia) 10. Dysarthria (speech clarity - read or repeat words) - 0(Normal) 11. Extinction and Inattention (visual/tactile/auditory/spatial/personal) - 0(No abnormality) Initials: vg1 Signatures: Dispatcher [employer] Shania Norton Victoria RN RN vg1 Edward Sotelo MD MD bs3 Corrections: (The following items were deleted from the chart) 09:24 09:23 Care significantly affected by the following Social Determinants of bs3 Health: Poor access to healthcare and/or lack of insurance, bs3 13:26 09:52 bs3 bd
[2022-08-05 10:19] LABS: SARS-CoV-2 Antigen Rapid Res Negative (Negative)
[2022-08-05] MEDS ORDERED: HYDROCODONE/APAP 10/325 TAB PO PRN (12:32)
[2022-08-05] MEDS ORDERED: ONDANSETRON 4 MG/2 ML VIAL IV PRN (12:35)
--- NOTE | 2022-08-05 12:38 | P.HP ---
Certification for Inpatient Patient admitted to: Observation With expected LOS: <2 Midnights Patient will require the following post-hospital care: None Practitioner: I am a practitioner with admitting privileges, knowledge of patient current condition, hospital course, and medical plan of care. Services: Services provided to patient in accordance with Admission requirements found in Title 42 Section 412.3 of the Code of Federal Regulations Patient History Date of Service: 08/05/22 Reason for admission: Right arm weakness History of Present Illness: Patient is an 82-year-old female with a past medical history significant for DM 2, hypertension, hypothyroidism, HLD, TIA who presents with complaint of right arm weakness onset this morning when she woke up. Patient reports previous episodes of right arm weakness 1 week ago and 4 days ago respectively. Patient reported that symptoms resolved quickly over time. The episode she had this morning lingered longer than previous episodes. Patient also reports neck pain that has been ongoing for a while. Patient rated pain as 8/10 in severity and described pain as aching in quality. Patient stated that pain radiates to her left shoulder and left upper arm. Patient reported associated signs and symptoms of headache. Patient denies any other signs or symptoms. Symptoms are aggravated or relieved by nothing. Patient decided to present to the hospital for medical evaluation. Of note, patient reported that she followed up with her clinical laboratory scientist 4 days ago and was placed on Plavix. Allergies erythromycin base Allergy (Verified 11/03/18 19:46) Hives/Rash Home Medications: Ascorbic Acid [Vitamin C] 1,000 mg PO DAILY 11/03/18 Aspirin [Aspirin EC 81 MG] 81 mg PO DAILY 11/03/18 Biotin 10,000 mcg PO DAILY 11/03/18 Levothyroxine [Synthroid*] 112 mcg PO DAILY 11/03/18 Magnesium Oxide [Magnesium] 250 mg PO DAILY 11/03/18 Pravastatin Sodium 80 mg PO DAILY 11/03/18 hydroCHLOROthiazide [Hydrochlorothiazide] 25 mg PO DAILY 11/03/18 Clopidogrel Bisulfate [Plavix*] 1 tab PO DAILY 08/05/22 Cyanocobalamin (Vitamin B-12) [Vitamin B12] 5,000 mcg PO DAILY 08/05/22 Ezetimibe [Zetia] 10 mg PO DAILY 08/05/22 Glipizide [Glipizide Xl] 10 mg PO DAILY 08/05/22 Metformin HCl 1,000 mg PO BIDWM 08/05/22 Multivit-Min/FA/Lycopen/Lutein [Adults 50 Plus Multivitamin] 1 tab PO DAILY 08/05/22 Olmesartan Medoxomil 40 mg PO DAILY 08/05/22 Sertraline HCl 100 mg PO DAILY 08/05/22 Sertraline HCl 100 mg PO DAILY 08/05/22 - Past Medical/Surgical History Diabetic: No -: High cholesterol -: HTN -: HypOthyroid -: Partial thyroidectomy - 1960 -: Hysterectomy -: Cardiac bypass x2 -: R. knee replacement -: Carpal tunnel R. - Family History Mother -: Heart disease, Hypertension Father -: Heart disease, Hypertension, Other (see notes) Notes: DC - Social History Smoking Status: Former smoker Alcohol use: No CD- Drugs: No Caffeine use: Yes Place of Residence: Home Review of Systems General: Unremarkable Eyes: Unremarkable ENT: Unremarkable Respiratory: Unremarkable Cardiovascular: Unremarkable Gastrointestinal: Unremarkable Genitourinary: Unremarkable Musculoskeletal: Neck Pain, Shoulder Pain, Arm Pain Integumentary: Unremarkable Neurological: Weakness, Other (Headache) Lymphatics: Unremarkable Physical Examination - Physical Exam General: Alert, In no apparent distress, Oriented x3, Cooperative HEENT: Atraumatic, PERRLA, Mucous membr. moist/pink, EOMI, Sclerae nonicteric Neck: Supple, 2+ carotid pulse no bruit, No LAD, Without JVD or thyroid abnormality Respiratory: Clear to auscultation bilaterally, Normal air movement Cardiovascular: No edema, Regular rate/rhythm, Normal S1 S2 Capillary refill: <2 Seconds Gastrointestinal: Normal bowel sounds, Soft and benign, Non-distended, No tenderness Musculoskeletal: No clubbing, No swelling, No contractures, No tenderness Integumentary: No rashes Neurological: Normal gait, Normal speech, Normal strength at 5/5 x4 extr, Normal tone, Normal affect Lymphatics: No axilla or inguinal lymphadenopathy - Studies Laboratory Data (last 24 hrs) 08/05/22 08:40: PT 10.8, INR 0.98, APTT 29.8 08/05/22 08:40: WBC 5.80, Hgb 13.6, Hct 39.8, Plt Count 241 08/05/22 08:40: Sodium 139, Potassium 3.8, BUN 25 H, Creatinine 1.00, Glucose 141 H Assessment and Plan - Plan -- TIA. Patient has a history of TIA. CTA neck\head and CT brain unremarkable for any acute findings. MRI brain pending for further evaluation. Neurology consulted. Continue Aspirin, statin and Plavix. Echocardiogram pending to r\o possible cardiac etiology. Will await further recommendations from neurologist. --Cervicalgia. MRI cervical spine pending. We will manage pain with current pain medication regimen. --Hx of CAD with CABG. Continue aspirin, Plavix and statin --Headache. Tylenol as needed. --Hyperlipidemia. Continue statin. --Hypothyroidism. Continue Synthroid. --Hypertension. Stable. While permissive hypertension pending resolution of MRI brain. We will continue to monitor blood pressure levels. --Class I obesity. Likely secondary to excess calories intake. Patient counseled on weight reduction, diet and exercise therapy. --DM2. BS monitoring with sliding scale insulin. --Hypomagnesemia. Replete as needed. --DVT prophylaxis with Lovenox subQ. Discharge Plan: Home Plan to discharge in: 48 Hours - Advance Directives Does patient have a Living Will: No Does patient have a Durable POA for Healthcare: No - Code Status/Comfort Care Code Status Assessed: Yes Physician Review: Patient Assessed, Agree with Above Assessment and Plan Critical Care: No
--- NOTE | 2022-08-05 13:29 | RAD REPORT ---
EXAM DESCRIPTION: MRI - Brain Wo Cont - 08/05/2022 1:15 pm CLINICAL HISTORY: Rule out CVA COMPARISON: Head CT 08/05/2022 at 9:12 a.m.. TECHNIQUE: Multiplanar multisequence MRI of the brain performed without IV contrast. FINDINGS: Motion artifact somewhat limits evaluation, despite attempts at repeat imaging. No evidence of acute infarct or other diffusion signal abnormality. No evidence of acute intracranial hemorrhage or abnormal extra-axial fluid collections. Mild diffuse parenchymal volume loss. Ventricular caliber otherwise within normal for age. Midline st ructures are unremarkable. Scattered subcortical and deep white matter T2/FLAIR hyperintensities, nonspecific, but suggestive of chronic small vessel ischemic changes. No mass effect or midline shift. Major vascular flow voids are preserved. Mastoid air cells and paranasal sinuses are clear. IMPRESSION: No acute intracranial process. No evidence of ventriculomegaly or mass effect. Nonspecific white matter T2/FLAIR hyperintensities, most suggestive of chronic small vessel ischemic changes.
[2022-08-05 13:32] LABS: Magnesium 1.5 mg/dL (1.6-2.4); Phosphorus 3.4 mg/dL (2.5-4.9); Thyroid Stimulating Hormone 0.458 uIU/mL (0.358-3.740)
--- NOTE | 2022-08-05 14:08 | RAD REPORT ---
EXAM DESCRIPTION: US - CP - 08/05/2022 1:55 pm CLINICAL HISTORY: TIA COMPARISON: Neck Angio dated 08/05/2022 TECHNIQUE: Real-time sonographic grayscale, color duplex, and spectral wave Doppler evaluation of [facility] carotid systems was performed. FINDINGS: Normal high resistance waveforms are noted in both external carotid arteries. The common c arotid arteries and internal carotid arteries show normal low resistance waveforms. No significant plaque formation is seen. Peak systolic velocity less than 125 cm/ sec on the left. P eak systolic velocity is elevated along the mid right ICA, measured 155 cm/sec. This could be related to vessel tortuosity at that level. ICA/CCA peak systolic ratios less than 2.0 bilaterally. Antegrade flow seen in both vertebral arteries. IMPRESSION: No significant atherosclerotic changes noted. Elevated right mid ICA peak systolic velocity, amounting to 50-69% stenosis, however this could be re lated to vessel tortuosity. No evidence of a hemodynamically significant stenosis of the left cervical ICA.
[2022-08-05] MEDS: ENOXAPARIN 40 MG/0.4 ML SQ SCH (14:34)
--- NOTE | 2022-08-05 14:37 | RAD REPORT ---
EXAM DESCRIPTION: MRI - C Spine Wo Cont - 08/05/2022 2:23 pm CLINICAL HISTORY: Radiculopathy. Left-sided neck pain. COMPARISON: CTA neck of the same day. TECHNIQUE: Multiplanar multisequence MRI of the cervical spine, performed without IV contrast FINDINGS: Partial ankylosis across the C4-5 segment across the endplates, with mild straightening of the normal cervical lordosis along that segment. Cervical vertebral bodies are normal in height and alignment. No suspicious marrow edema or marrow re placing process. Cerebellar tonsils and mid-line skull base show no suspicious finding. Mild degenerative pannus at th e C1-2 articulation, without mass effect upon the craniocervical articulation. No abnormal cord signal. No myelomalacia or edema. C2-3 level: No disc herniation or stenosis. Mild bilateral facet arthropathy on the left. C3-4 level: Small central zone disc protrusion, mildly indenting the central aspect of the cord ventr ally. Bilateral facet arthropathy and asymmetric left more than right uncovertebral joint spurring. N o significant central canal stenosis. [id number] left neural foraminal narrowing. C4-5 level: Mild endplate spurring and effacement of the ventral CSF space without significant canal stenosis. No significant foraminal narrowing. C5-6 level: [id number] disc height loss with broad-based posterior disc bulge with endplate spu rring. Ligamentum flavum buckling. Overall mild central canal stenosis with indentation of the ventra l aspect of the cord. Bilateral facet and uncovertebral joint arthropathy, contributing to bilateral mild neural foraminal narrowing worse on the right. C6-7 level: Circumferential mild disc osteophyte complex. Bilateral facet arthropathy and ligamentum flavum buckling. Overall mild central canal stenosis. Bilateral mild neural foraminal narrowing, wors e on the right. C7-T1 level: Bilateral mild facet arthropathy. Right mild neural foraminal narrowing. Cervical cord shows no focal narrowing, expansion or signal abnormality. The visualized neck structures are unremarkable on the provided images. IMPRESSION: Multilevel cervical spine degenerative changes as above, most notably with multifactoria l mild central canal stenosis at C5-6 and C6-7. A small central disc protrusion at C3-4 indents the v entral aspect of the cord centrally, without significant canal stenosis. Variable degrees of neural foraminal narrowing, up to moderate on the left at C3-4, and mild bilatera lly at C5-6 and C6-7, worse on the right.
[2022-08-05 15:00] VITALS: BMI 30.9
[2022-08-05 16:17] VITALS: O2SAT 97
[2022-08-05 19:42] LABS: Specific Gravity > 1.030 (1.005-1.030); Urine Bilirubin NEGATIVE (Negative); Urine Blood Negative (Negative); Urine Clarity Clear (Clear); Urine Color Light-Yellow (Yellow); Urine Glucose NEGATIVE (Negative); Urine Protein NEGATIVE (Negative); Urine Urobilinogen Normal (Normal); Urine pH 5.5 (5.0-7.0)
[2022-08-05] MEDS ORDERED: ATORVASTATIN 10 MG TAB PO SCH (21:00)
[2022-08-05] MEDS: ACETAMINOPHEN 325 MG TABLET PO PRN (23:14)
[2022-08-05] MEDS ORDERED: D50W 25 GM/50 ML SYRINGE IV PRN (23:15)
[2022-08-05] MEDS ORDERED: GLUCAGON 1 MG/VIAL IM PRN (23:15)
[2022-08-05] MEDS ORDERED: D10W 125 ML IV PRN (23:28)
[2022-08-06 06:02] LABS: Absolute Lymphocytes (CBC) 1.9 K/uL (0.7-4.9); Hematocrit 40.5 % (36.0-45.0); Lymphocytes % 29.9 % (15.3-44.8); MCV 90.6 fL (80-100); MPV 8.2 fL (7.6-11.3); RBC Red Blood Cell Count 4.47 M/uL (3.86-4.86)
[2022-08-06] MEDS: ACETAMINOPHEN 325 MG TABLET PO PRN (06:08)
[2022-08-06 06:19] LABS: Potassium 3.9 mmol/L (3.5-5.1)
[2022-08-06] MEDS ORDERED: LEVOTHYROXINE SOD 0.112 MG TAB PO SCH (06:30)
[2022-08-06 06:43] LABS: Magnesium 1.7 mg/dL (1.6-2.4); Phosphorus 3.1 mg/dL (2.5-4.9)
[2022-08-06] MEDS ORDERED: INSULIN -REGULAR HUMAN 50 UNIT/0.5 ML ML SQ SCH (07:30)
[2022-08-06] MEDS ORDERED: MULTIVIT W/ MINERAL TAB PO SCH ×2 (09:00)
[2022-08-06] MEDS ORDERED: CLOPIDOGREL 75 MG TABLET PO SCH (09:00)
[2022-08-06] MEDS ORDERED: ASPIRIN 81 MG CHEWABLE TABLET PO SCH (09:00)
[2022-08-06] MEDS ORDERED: HOME MED 1 EA UNK (Magnesium Oxide [Magnesium] 400 MG Tablet) PO SCH (09:00)
[2022-08-06] MEDS ORDERED: HOME MED 1 EA UNK (Ascorbic Acid [Vitamin C] 1,000 MG Tablet) PO SCH (09:00)
[2022-08-06] MEDS ORDERED: HOME MED 1 EA UNK (Multivit-Min/Iron/Folic/Lutein [Centrum Silver Women Tablet] Tablet) PO SCH (09:00)
[2022-08-06] MEDS ORDERED: VALSARTAN 160 MG TAB PO SCH (09:00)
[2022-08-06] MEDS ORDERED: VITAMIN D3 PO SCH (09:00)
[2022-08-06] MEDS ORDERED: HOME MED 1 EA UNK (Biotin [Biotin] 1,000 MCG Tab.Chew) PO SCH (09:00)
[2022-08-06] MEDS ORDERED: EZETIMIBE 10 MG TAB PO SCH (09:00)
[2022-08-06] MEDS ORDERED: HOME MED 1 EA UNK (Paroxetine Hcl [Paroxetine Hcl] 20 MG Tablet) PO SCH (09:00)
[2022-08-06] MEDS ORDERED: HOME MED 1 EA UNK (Pravastatin Sodium [Pravastatin Sodium] 40 MG Tablet) PO SCH (09:00)
[2022-08-06] MEDS ORDERED: MAGNESIUM OXIDE 400 MG TAB PO SCH (09:00)
[2022-08-06] MEDS ORDERED: CYANOCOBALAMIN 1,000 MCG TAB PO SCH (09:00)
[2022-08-06] MEDS ORDERED: CALCIUM CARBONATE PO SCH (09:00)
[2022-08-06] MEDS ORDERED: VITAMIN D 1000 UNIT TAB PO SCH (09:00)
[2022-08-06] MEDS ORDERED: SERTRALINE HCL 100 MG TAB PO SCH (09:00)
[2022-08-06] MEDS ORDERED: hydroCHLOROthiazide 25 MG TAB PO SCH (09:00)
[2022-08-06] MEDS ORDERED: HOME MED 1 EA UNK (Cholecalciferol (Vitamin D3) [Vitamin D3] 1,000 UNIT Capsule) PO SCH (09:00)
[2022-08-06] MEDS ORDERED: PARoxetine HCL 10 MG TAB PO SCH (09:00)
[2022-08-06] MEDS ORDERED: ASCORBIC ACID 500 MG TABLET PO SCH (09:00)
[2022-08-06] MEDS ORDERED: CALCIUM CARB 500MG/VIT D 200 IU TAB PO SCH (09:00)
[2022-08-06] MEDS: ENOXAPARIN 40 MG/0.4 ML SQ SCH (09:07)
[2022-08-06 09:13] VITALS: BP 123/59
[2022-08-06 09:43] VITALS: TEMP 97.4
--- NOTE | 2022-08-06 09:59 | P.DS ---
Admission Date: 08/05/22 Discharge Date: 08/06/22 Disposition: ROUTINE DISCHARGE Discharge Condition: GOOD Reason for Admission: Right arm weakness Consultations: Neurology - Dr. Huitron Brief History of Present Illness: 82yo F, PMH: NIDDM2, HTN, hypothyroidism, HLD, TIA Presents to ED due to RUE weakness - sudden onset and quick resolution within seconds - for 3 episodes over last 2 weeks. Associated with arm feeling very heavy, painless. Patient also reports neck pain that has been ongoing for a while. Patient denies any other signs or symptoms. Symptoms are aggravated or relieved by nothing. Patient decided to present to the hospital for medical evaluation. Of note, patient reported that she followed up with her manager clinical informatics 4 days ago and was placed on Plavix. Hospital Course: Problem List Brief, Intermittent right upper extremity weakness Cervicalgia h/o CAD s/p CABG Hypothyroidism HTN NIDDM2 Depression Presented with brief, suddent weakness of right arm (3 episodes), lasting a few seconds. She was evaluated by CT head/neck, MRI and MRA head/neck, MRI c-spine, which were negative for stroke, no mass/lesions. MRI of c-spine noted mild central canal narrowing, and mild-moderate bilateral neural foraminal narrowing, slightly worse on right. These could lead to some mild symptoms with certain movements and possibly explain the patient's symptoms, but symptoms are not completely consistent as expected for this narrowing. Findings were reviewed with Dr. Huitron, recommended follow up in the office, will benefit from outpatient EMG and nerve conduction studies. No other changes to medications. Recommended avoidance of chiropractor. Patient's blood pressure was noted to be low-normal range, on an ARB and HCTZ. Patient stated she checks her BP at home and has been fluctuating from 130s- 150s. Advised to continue to monitor closely, with avoidance of low blood pressure. May need to cut back on her medications. She has a follow up with her PCP tomorrow to further review. Vital Signs/Physical Exam: Temp Pulse Resp BP Pulse Ox 97.4 F 75 20 123/59 L 94 08/06/22 08:00 08/06/22 09:07 08/06/22 08:00 08/06/22 09:07 08/06/22 08:00 General: Alert, In no apparent distress, Oriented x3 HEENT: EOMI, Sclerae nonicteric Respiratory: Clear to auscultation bilaterally, Normal air movement Cardiovascular: No edema, Regular rate/rhythm Gastrointestinal: Soft and benign, Non-distended, No tenderness Musculoskeletal: No contractures, No tenderness Integumentary: No rashes, No significant lesion Neurological: Normal speech, Normal strength at 5/5 x4 extr, Normal affect, Other (spurling's maneuver did not elicit any response) Laboratory Data at Discharge: WBC 6.20 K/uL (4.3-10.9) 08/06/22 05:39 Hgb 13.5 g/dL (12.0-15.0) 08/06/22 05:39 Hct 40.5 % (36.0-45.0) 08/06/22 05:39 Plt Count 231 K/uL (152-406) 08/06/22 05:39 PT 10.8 SECONDS (9.5-12.5) 08/05/22 08:40 INR 0.98 08/05/22 08:40 APTT 29.8 SECONDS (24.3-36.9) 08/05/22 08:40 Sodium 140 mmol/L (136-145) 08/06/22 05:34 Potassium 3.9 mmol/L (3.5-5.1) 08/06/22 05:34 BUN 24 mg/dL (7-18) H 08/06/22 05:34 Creatinine 1.01 mg/dL (0.55-1.02) 08/06/22 05:34 Glucose 154 mg/dL (74-106) H 08/06/22 05:34 Phosphorus 3.1 mg/dL (2.5-4.9) 08/06/22 05:39 Magnesium 1.7 mg/dL (1.6-2.4) 08/06/22 05:39 Triglycerides 133 mg/dL (<150) 08/05/22 08:40 Cholesterol 146 mg/dL (<200) 08/05/22 08:40 HDL Cholesterol 50 mg/dL (40-60) 08/05/22 08:40 Cholesterol/HDL Ratio 2.92 08/05/22 08:40 Home Medications: Ascorbic Acid [Vitamin C] 1,000 mg PO DAILY 11/03/18 Aspirin [Aspirin EC 81 MG] 81 mg PO DAILY 11/03/18 Biotin 10,000 mcg PO DAILY 11/03/18 Levothyroxine [Synthroid*] 112 mcg PO DAILY 11/03/18 Magnesium Oxide [Magnesium] 250 mg PO DAILY 11/03/18 Pravastatin Sodium 80 mg PO DAILY 11/03/18 hydroCHLOROthiazide [Hydrochlorothiazide] 25 mg PO DAILY 11/03/18 Clopidogrel Bisulfate [Plavix*] 1 tab PO DAILY 08/05/22 Cyanocobalamin (Vitamin B-12) [Vitamin B12] 5,000 mcg PO DAILY 08/05/22 Ezetimibe [Zetia*] 10 mg PO DAILY 08/05/22 Glipizide [Glipizide Xl] 10 mg PO DAILY 08/05/22 Metformin HCl 1,000 mg PO BIDWM 08/05/22 Multivit-Min/FA/Lycopen/Lutein [Adults 50 Plus Multivitamin] 1 tab PO DAILY 08/05/22 Olmesartan Medoxomil 40 mg PO DAILY 08/05/22 Sertraline HCl 100 mg PO DAILY 08/05/22 Sertraline HCl 100 mg PO DAILY 08/05/22 Physician Discharge Instructions: Presented with brief, suddent weakness of right arm (3 episodes), lasting a few seconds. She was evaluated by CT head/neck, MRI and MRA head/neck, MRI c-spine, which were negative for stroke, no mass/lesions. MRI of c-spine noted mild central canal narrowing, and mild-moderate bilateral neural foraminal narrowing, slightly worse on right. These could lead to some mild symptoms with certain movements and possibly explain the patient's symptoms, but symptoms are not completely consistent as expected for this narrowing. Findings were reviewed with Dr. Huitron, recommended follow up in the office, will benefit from outpatient EMG and nerve conduction studies. No other changes to medications. Recommended avoidance of chiropractor. Patient's blood pressure was noted to be low-normal range, on an ARB and HCTZ. Patient stated she checks her BP at home and has been fluctuating from 130s- 150s. Advised to continue to monitor closely, with avoidance of low blood pressure. May need to cut back on her medications. She has a follow up with her PCP tomorrow to further review. Followup: NONE,NONE [Primary Care Provider] - Time spent managing pt's care (in minutes): 45
--- NOTE | 2022-08-06 17:15 | EKG ---
Test Date: 2022-08-05 Test Time: 08:55:53 [employer] Worker: JAZMINE MEASUREMENT RESULTS: Intervals: Rate: 67 MS: 136 QRSD: 98 QT: 408 QTc: 431 [place]: P: 38 MS: 136 QRS: -14 T: 56 INTERPRETIVE STATEMENTS: Normal sinus rhythm with sinus arrhythmia Normal ECG Compared to ECG 11/04/2018 07:40:19 Short MS interval no longer present Electronically Signed On 08-06-22 17:10:43 CABLE HOOKER by Luca Montilla
== END 2022-08-06 11:49 | disposition home or self-care (01) ==
LOC: ER 08:28 → ERHOLD 12:24 → 4TH 13:59
PROVIDERS: ADMIT Internal Medicine; ATTEND Hospitalist
DX: R53.1 Weakness (principal); E11.9 Type 2 diabetes mellitus without complications; I10 Essential (primary) hypertension; E78.5 Hyperlipidemia, unspecified; M54.2 Cervicalgia; I25.10 Atherosclerotic heart disease of native coronary artery without angina pectoris; R51.9 Headache, unspecified; E66.9 Obesity, unspecified; E83.42 Hypomagnesemia; Z68.30 Body mass index [BMI] 30.0-30.9, adult; Z88.3 Allergy status to other anti-infective agents; Z95.1 Presence of aortocoronary bypass graft; Z86.73 Personal history of transient ischemic attack (TIA), and cerebral infarction without residual deficits; Z87.891 Personal history of nicotine dependence; Z20.822 Contact with and (suspected) exposure to COVID-19
CPT/HCPCS: 93005; 85025 ×2; 80048 ×2; 36415 ×2; 83735 ×2; 84100 ×2; 85610; 80061; 82565; 82947 ×3; 85730; 84443; 81003; 83036; 84484; 84439; 83880; 70496; 70498; 70450; 71045; 93880; 70551; 72141; 99285; 87811; Q9967; J1650 ×2; G0378

== ENCOUNTER 2024-03-17 14:25 | Emergency (ER) | payer OTHER, MEDICARE ==
--- NOTE | 2024-03-17 16:21 | RAD REPORT ---
EXAMINATION: ONE VIEW CHEST XR CLINICAL INDICATION: Female, 83 years old.,COUGH TECHNIQUE: Frontal chest projection is submitted. Examination is limited by patient positioning and t echnique. COMPARISON: 03/17/2024 FINDINGS: The lungs are well inflated and clear. Elevation of the right hemidiaphragm. No pneumothorax or sizab le effusion. The heart is normal in size. Sequelae of median sternotomy. IMPRESSION: No acute intrathoracic abnormalities.
[2024-03-17 16:26] LABS: Absolute Basophils 0.1 K/uL (0-0.5); Absolute Eosinophils 0.1 K/uL (0-0.5); Absolute Lymphocytes (CBC) 2.3 K/uL (0.7-4.9); Absolute Monocytes 0.6 K/uL (0.1-1.3); Absolute Neutrophil 5.3 K/uL (1.8-8.0); Basophils % 0.9 % (0-1.3); Eosinophils % 1.7 % (0-4.4); Hematocrit 38.6 % (36.0-45.0); Hemoglobin 12.9 g/dL (12.0-15.0); Lymphocytes % 27.8 % (15.3-44.8); MCH 30.5 pg (27.0-35.0); MCHC 33.6 g/dL (32.0-36.0); MCV 90.8 fL (80-100); MPV 8.8 fL (7.6-11.3); Monocytes % 7.1 % (3.3-12.3); Neutrophils % 62.5 % (41.7-73.7); Platelets 207 thou/uL (152-406); RBC Red Blood Cell Count 4.25 M/uL (3.86-4.86); Red Cell Distribution Width 15.2 % (12.1-15.2)
[2024-03-17 16:48] LABS: ALT/SGPT 21 U/L (13-56); AST/SGOT < 10 U/L (15-37); Albumin 3.2 g/dL (3.4-5.0); Alkaline Phosphatase 50 U/L (45-117); BUN Blood Urea Nitrogen 37 mg/dL (7-18); Bicarbonate 27 mEq/L (21-32); Bilirubin Direct < 0.2 mg/dL (0-0.2); Bilirubin Indirect, Calculated 0.5 mg/dL (0.2-0.8); Bilirubin Total 0.7 mg/dL (0.2-1.0); Globulin 3.2 g/dL (2.3-3.5); Glomerular Filtration Rate 41 ml/min (=/>90); Glucose Level 96 mg/dL (74-106); Magnesium 1.3 mg/dL (1.6-2.4); NT PRO-BNP 482 pg/mL (<450); Protein, Total 6.4 g/dL (6.4-8.2); Sodium Level 138 mEq/L (136-145)
[2024-03-17] MEDS ORDERED: NA CHLORIDE 0.9% 500 ML ONE (17:33)
[2024-03-17 18:06] LABS: Specific Gravity 1.015 (1.005-1.030); Sqamous Epithelial None Seen /HPF (None Seen); Urine Bacteria None Seen /HPF (<20); Urine Bilirubin NEGATIVE (Negative); Urine Blood Negative (Negative); Urine Clarity Turbid (Clear); Urine Color Light-Yellow (Yellow); Urine Culture Reflex Order NOT NEEDED; Urine Glucose NEGATIVE (Negative); Urine Ketones NEGATIVE (Negative); Urine Micro Reflex YN NO BILL MICROSCOPIC; Urine Nitrite NEGATIVE (Negative); Urine Protein NEGATIVE (Negative); Urine RBC <5 /HPF (None Seen); Urine Urobilinogen Normal (Normal); Urine WBC <5 /HPF (<5); Urine pH 5.5 (5.0-7.0)
--- NOTE | 2024-03-17 18:08 | RAD REPORT ---
EXAM: Head Brain Wo Cont HISTORY: MENTAL STATUS CHANGE COMPARISON: 08/05/2022 TECHNIQUE: Multiple contiguous axial images were obtained for a CT of the brain without contrast. Sag ittal and coronal reformats were performed. One or more of the following dose reduction techniques were used: Automated exposure control, adjus tment of the mA and kV according to patient size, and iterative reconstruction. Unless otherwise specified, incidental findings do not require dedicated imaging follow-up. FINDINGS: No evidence of hydrocephalus, intracranial hemorrhage, or extra-axial fluid collection. Mild brain atrophy with mild periventricular and deep white matter chronic microvascular ischemic ch anges present. The calvarium is intact. The visualized paranasal sinuses and mastoid air cells are essentially clear . IMPRESSION: No evidence of acute intracranial abnormality.
--- NOTE | 2024-03-17 18:19 | RAD REPORT ---
EXAMINATION: CT ABDOMEN AND PELVIS WITH CONTRAST CLINICAL INDICATION: Female, 83 years old. ABD PAIN TECHNIQUE: CT abdomen and pelvis was performed, after the administration of IV contrast, as per [facility]. Axial, sagittal and coronal reconstructions were obtained. One or more of the following dose reduction techniques were used: Automated exposure control, adjustment of the mA and k V according to patient size, and iterative reconstruction. Unless otherwise specified, incidental findings do not require dedicated imaging follow-up. COMPARISON: No prior exam. FINDINGS: LOWER CHEST: The visualized lung bases are clear. LIVER: Normal in size and contour. No focal lesion. BILIARY SYSTEM: Cholelithiasis. No pericholecystic fluid or fat stranding. SPLEEN: Normal size. No focal lesion. PANCREAS: No mass, ductal dilation, or gavi-pancreatic fluid. ADRENALS: Normal; no mass. KIDNEYS: Normal size and contour. No hydronephrosis. 3-4 mm calculus right upper renal pole. URINARY BLADDER: Unremarkable. GASTROINTESTINAL TRACT: No evidence of free air, significant intra-abdominal free fluid, bowel obstru ction or abscess. Mild colonic diverticulosis. APPENDIX: Normal appendix. LYMPH NODES: No lymphadenopathy. MUSCULOSKELETAL: No acute or suspicious osseous abnormality. ADDITIONAL FINDINGS: None. IMPRESSION: Right superior renal pole. 4 mm nonobstructing calculus. Mild colonic diverticulosis. No other acute or concerning abnormalities seen in the abdomen or pelvis.
[2024-03-17] MEDS ORDERED: MAGNESIUM OXIDE 400 MG TAB ONE (18:58)
--- NOTE | 2024-03-17 19:00 | EDPHYS ---
Physician Documentation [facility] Name: Edda Norwood Age: 83 yrs Sex: Female : 1940 Arrival Date: 03/17/2024 Time: 14:25 Bed 19 Private MD: ED Physician Azra Valdez HPI: 03/17 15:16 This 83 yrs old Female presents to ER via Ambulatory with complaints of Sent by pm1 margaret Mathews. 15:16 Onset: The symptoms/episode began/occurred 3 week(s) ago. The patient has not recently pm1 seen a physician, She called her PCP office with her complaints and was told to go to the ER for evaluation and treatment. The patient presents to the ER with multiple complaints. She reports brain fog for the past three weeks after having a diagnosis of covid. She is also reports a cough without any shortness of breath or chest pain for the past few days. She reports generalized weakness. She also reports mid epigastric pain last night that resolved yesterday with nausea, vomiting, and diarrhea.. . The patient reports high levels of stress related to taking care of her with dementia. Historical: - Allergies: 14:38 Erythromycin; db - PMHx: 14:38 High Cholesterol; Hypertension; Thyroid problem; diabetes mellitus; TIA; db - PSHx: 14:38 right knee; db - Immunization history:: Adult Immunizations unknown. - Infectious Disease History:: Denies. - Social history:: Smoking status: Patient denies any tobacco usage or history of. ROS: 15:16 Cardiovascular: Negative for chest pain, palpitations, and edema, pm1 15:16 Back: Negative for injury and pain, MS/Extremity: Negative for injury and deformity, Skin: Negative for injury, rash, and discoloration, 15:16 Constitutional: Positive for poor PO intake, Negative for fever, 15:16 Respiratory: Positive for cough, Negative for shortness of breath, 15:16 Abdomen/GI: Positive for abdominal pain, nausea, vomiting, and diarrhea, of the epigastric area, 15:16 Neuro: Positive for generalized weakness, Negative for dizziness, headache, 15:16 All other systems are negative, Exam: 15:16 Constitutional: This is a well developed, well nourished patient who is awake, alert, pm1 and in no acute distress. Head/Face: Normocephalic, atraumatic. 15:16 Back: No spinal tenderness. No costovertebral tenderness. Full range of motion. Skin: Warm, dry with normal turgor. Normal color with no rashes, no lesions, and no evidence of cellulitis. MS/ Extremity: Pulses equal, no cyanosis. Neurovascular intact. Full, normal range of motion. 15:16 Cardiovascular: Exam negative for acute changes, Rate: normal, Rhythm: regular, Pulses: no pulse deficits are appreciated, Heart sounds: normal, Edema: is not appreciated, 15:16 Respiratory: Exam negative for acute changes, respiratory distress, shortness of breath, Breath sounds: are clear throughout, 15:16 Abdomen/GI: Inspection: abdomen appears normal, Palpation: abdomen is soft and non-tender, in all quadrants, 15:16 Neuro: Exam negative for acute changes, Orientation: is normal, Mentation: is normal, Motor: is normal, moves all fours, 16:13 ECG was reviewed by the Attending Physician. pm1 Vital Signs: 14:33 BP 119 / 64; Pulse 82; Resp 16; Temp 98.6; Pulse Ox 98% ; Weight 74.39 kg; Height 5 ft. db 3 in. ; 16:14 BP 115 / 76; Pulse 68; Resp 16; Pulse Ox 100% on R/A; cm10 16:30 BP 106 / 56; Pulse 69; Resp 16; Pulse Ox 99% on R/A; cm10 17:22 BP 123 / 65; Pulse 69; Resp 16; Pulse Ox 100% ; cm10 18:00 BP 122 / 66; Pulse 72; Resp 16; Pulse Ox 100% ; cm10 14:33 Body Mass Index 29.05 (74.39 kg, 160.02 cm) db MDM: 14:58 Patient medically screened. pm1 18:57 Data reviewed: vital signs. pm1 18:57 Differential diagnosis: pneumonia UTI, dehydration, ACS, stroke, generalized weakness, pm1 abdominal pain. 18:57 Historians other than the Patient: Family Member: sister in law. 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 18:57 Counseling: I had a detailed discussion with the patient and/or guardian regarding the pm1 historical points, exam findings, and any diagnostic results supporting the discharge/admit diagnosis, lab results, radiology results, the need for outpatient follow up, a family practitioner, to return to the emergency department if symptoms worsen or persist or if there are any questions or concerns that arise at home. 03/17 15:16 Order name: Basic Metabolic Panel; Complete Time: 17:00 pm1 03/17 15:16 Order name: CBC with Diff; Complete Time: 16:42 pm1 03/17 15:16 Order name: LFT's; Complete Time: 17:00 pm03/17 15:16 Order name: Magnesium; Complete Time: 17:00 pm03/17 15:16 Order name: NT PRO-BNP; Complete Time: 17:00 pm03/17 15:16 Order name: Troponin HS; Complete Time: 17:00 pm03/17 17:02 Order name: Urine W/Microscopic (UAM); Complete Time: 18:09 pm03/17 15:16 Order name: XRAY Chest (1 view); Complete Time: 16:23 pm03/17 15:16 Order name: CT Head Brain wo Cont; Complete Time: 18:09 pm03/17 15:58 Order name: Abdomen ; Complete Time: 18:22 EDMS 03/17 15:16 Order name: EKG; Complete Time: 15:17 pm03/17 15:16 Order name: Cardiac monitoring; Complete Time: 16:15 pm03/17 15:16 Order name: EKG - Nurse/Tech; Complete Time: 16:15 pm03/17 15:16 Order name: IV Saline Lock; Complete Time: 16:15 pm03/17 15:16 Order name: Labs collected and sent; Complete Time: 16:15 pm03/17 15:16 Order name: O2 Per Protocol; Complete Time: 16:15 pm03/17 15:16 Order name: O2 Sat Monitoring; Complete Time: 16:15 pm EC:13 Rate is 67 beats/min. Rhythm is regular, Normal Sinus Rhythm with No ectopy. QRS [place] pm1 is Normal. NE interval is normal. QRS interval is normal. QT interval is normal. No Q waves. T waves are Normal. No ST changes noted. Clinical impression: Normal ECG. Administered Medications: 17:49 Drug: NS 0.9% IV 500 ml IV at bolus once Route: IV; Rate: bolus; Site: left antecubital;cm10 18:24 Follow up: Response: No adverse reaction; IV Status: Completed infusion; IV Intake: cm10 500ml 18:58 Drug: Magnesium PO 400 mg PO once Route: PO; cm10 Disposition Summary: 03/17/24 19:00 Discharge Ordered Notes: Location: Home pm1 Problem: new pm1 Symptoms: have improved pm1 Condition: Stable pm1 Diagnosis - Weakness pm1 - Dehydration pm1 Followup: pm1 - With: Emergency Department - When: As needed - Reason: Worsening of condition Followup: pm1 - With: Private Physician - When: 2 - 3 days - Reason: Recheck today's complaints, Continuance of care, Re-evaluation by your physician Discharge Instructions: - Discharge Summary Sheet pm1 - Dehydration, Elderly pm1 - Weakness pm1 - Rehydration, Elderly pm1 Forms: - Medication Reconciliation Form pm1 - Antibiotic Education pm1 - Prescription Opioid Use pm1 - Patient Portal Instructions pm1 - Leadership Thank You Letter pm1 Signatures: Dispatcher [employer] EDMS [place], ABRAM PERFORMANCE ANALYST pm1 Le Zuniga, RN RN db Tereza Devi RN RN cm10 Corrections: (The following items were deleted from the chart) 15:17 15:17 BASIC METABOLIC PANEL+C.LAB.BRZ ordered. EDMS EDMS 15:17 15:17 CBC+H.LAB.BRZ ordered. EDMS EDMS 15:17 15:17 HEPATIC FUNCTION+C.LAB.BRZ ordered. EDMS EDMS 15:17 15:17 MAGNESIUM+C.LAB.BRZ ordered. EDMS EDMS 15:17 15:17 PROBNP+C.LAB.BRZ ordered. EDMS EDMS 15:17 15:17 Troponin High Sensitivity+C.LAB.BRZ ordered. EDMS EDMS 15:17 15:17 Head Brain Wo Cont+CT.RAD.BRZ ordered. EDMS EDMS 15:17 15:17 Abdomen W/ Con+CT.RAD.BRZ ordered. EDMS EDMS 17:02 17:02 Urinalysis W/Microscopic+U.LAB.BRZ ordered. EDMS EDMS
--- NOTE | 2024-03-17 19:00 | ER ---
Nurse's Notes [facility] Name: Edda Norwood Age: 83 yrs Sex: Female : 1940 Arrival Date: 03/17/2024 Time: 14:25 Bed 19 Private MD: Diagnosis: Weakness;Dehydration Presentation: 03/17 14:33 Chief complaint: Patient states: DX WITH COVID 3 WEEKS AGO TODAY STILL HAS CONGESTION. db X 3 WEEKS HAS DIFFICULTY FOCUSING AND DIFFICULTY WALKING STRAIGHT. FEELS CONFUSED AND SOMETHING IS WRONG. STATES CHANGED DULOXETINE MEDICATION DOSE RECENTLY. STATES IS UNDER STRESS TAKING CARE OF WITH DEMENTIA. Coronavirus screen: Client denies travel out of the [place] in the last 14 days. Client presents with at least one sign or symptom that may indicate coronavirus-19. Standard/surgical mask placed on the client. Ebola Screen: Patient negative for fever greater than or equal to 101.5 degrees Fahrenheit, and additional compatible Ebola Virus Disease symptoms Patient denies exposure to infectious person. Patient denies travel to an Ebola-affected area in the 21 days before illness onset. No symptoms or risks identified at this time. Initial Sepsis Screen: Does the patient meet any 2 criteria? No. Patient's initial sepsis screen is negative. Does the patient have a suspected source of infection? No. Patient's initial sepsis screen is negative. Risk Assessment: Do you want to hurt yourself or someone else? Patient reports no desire to harm self or others. Onset of symptoms was March 17, 2024. 14:33 Method Of Arrival: Ambulatory db 14:33 Acuity: ARLETTE 3 db Triage Assessment: 14:38 General: Appears in no apparent distress. comfortable, Behavior is calm, cooperative. db Pain: Denies pain. Neuro: Level of Consciousness is awake, alert, obeys commands, Oriented to person, place, time, situation. Respiratory: Airway is patent Respiratory effort is even, unlabored, Respiratory pattern is regular, symmetrical. Historical: - Allergies: 14:38 Erythromycin; db - PMHx: 14:38 High Cholesterol; Hypertension; Thyroid problem; diabetes mellitus; TIA; db - PSHx: 14:38 right knee; db - Immunization history:: Adult Immunizations unknown. - Infectious Disease History:: Denies. - Social history:: Smoking status: Patient denies any tobacco usage or history of. Screenin:16 [facility] ED Fall Risk Assessment (Adult) History of falling in the last 3 months, cm10 including since admission No falls in past 3 months (0 pts) Confusion or Disorientation No (0 pts) Intoxicated or Sedated No (0 pts) Impaired Gait No (0 pts) Mobility Assist Device Used No (0 pt) Altered Elimination No (0 pt) Score/Fall Risk Level 0 - 2 = Low Risk Oriented to surroundings, Maintained a safe environment, Hourly rounding (assess needs \T\ fall precautionary measures) done. Abuse screen: Denies threats or abuse. Denies injuries from another. Nutritional screening: No deficits noted. Tuberculosis screening: No symptoms or risk factors identified. Assessment: 16:15 General: Appears in no apparent distress. comfortable, Behavior is calm, cooperative. cm10 Neuro: No deficits noted. Level of Consciousness is awake, alert, obeys commands, Oriented to person, place, time, situation, Appropriate for age. Cardiovascular: No deficits noted. Patient's skin is warm and dry. Rhythm is sinus rhythm. Respiratory: No deficits noted. Airway is patent Respiratory effort is even, unlabored, Respiratory pattern is regular, symmetrical. Derm: No deficits noted. Skin is healthy with good turgor, Skin is pink, warm \T\ dry. Musculoskeletal: No deficits noted. Range of motion: intact in all extremities. 18:37 Reassessment: Patient appears in no apparent distress at this time. No changes from cm10 previously documented assessment. Patient and/or family updated on plan of care and expected duration. Pain level reassessed. Patient is alert, oriented x 3, equal unlabored respirations, skin warm/dry/pink. Vital Signs: 14:33 BP 119 / 64; Pulse 82; Resp 16; Temp 98.6; Pulse Ox 98% ; Weight 74.39 kg; Height 5 ft. db 3 in. ; 16:14 BP 115 / 76; Pulse 68; Resp 16; Pulse Ox 100% on R/A; cm10 16:30 BP 106 / 56; Pulse 69; Resp 16; Pulse Ox 99% on R/A; cm10 17:22 BP 123 / 65; Pulse 69; Resp 16; Pulse Ox 100% ; cm10 18:00 BP 122 / 66; Pulse 72; Resp 16; Pulse Ox 100% ; cm10 14:33 Body Mass Index 29.05 (74.39 kg, 160.02 cm) db ED Course: 14:30 Patient arrived in ED. im 14:38 Triage completed. db 14:39 Arm band placed on right wrist. Patient placed in waiting room. db 14:45 [place] NP is PHCP. pm1 14:45 Azra Valdez MD is Attending Physician. pm1 15:42 XRAY Chest (1 view) In Process Unspecified. EDMS 15:57 Tereza Devi, RN is Primary Nurse. cm10 16:14 Initial lab(s) drawn, by ks, sent to lab. EKG done, by ED staff, reviewed by [place] NP. Inserted saline lock: 20 gauge in left antecubital area, using aseptic technique. Blood collected. Flushed with 10 mL NS. 16:15 Basic Metabolic Panel Sent. cm10 16:15 CBC with Diff Sent. cm10 16:15 LFT's Sent. cm10 16:15 Magnesium Sent. cm10 16:15 NT PRO-BNP Sent. cm10 16:15 Troponin HS Sent. cm10 16:16 Patient has correct armband on for positive identification. Bed in low position. Call cm10 light in reach. Side rails up X2. Provided Education on: ER process and procedures.. Client placed on continuous cardiac and pulse oximetry monitoring. NIBP monitoring applied. court recording monitor on. 17:19 CT Head Brain wo Cont In Process Unspecified. EDMS 17:32 Abdomen In Process Unspecified. EDMS 17:49 Urine W/Microscopic (UAM) Sent. cm10 Administered Medications: 17:49 Drug: NS 0.9% IV 500 ml IV at bolus once Route: IV; Rate: bolus; Site: left antecubital;cm10 18:24 Follow up: Response: No adverse reaction; IV Status: Completed infusion; IV Intake: cm10 500ml 18:58 Drug: Magnesium PO 400 mg PO once Route: PO; cm10 Medication: 16:16 VIS not applicable for this client. cm10 Intake: 18:24 IV: 500ml; Total: 500ml. cm10 Outcome: 19:00 Discharge ordered by . pm1 19:11 Patient left the ED. rg5 Signatures: Dispatcher [employer] EDMS [place] NP SCADA ENGINEER pm1 Le Zuniga RN RN Araceli Galaviz Clarissa RN RN cm10 Ulises Castaneda RN RN rg5 Corrections: (The following items were deleted from the chart) 14:39 14:33 Chief complaint: Patient states: DX WITH COVID 3 WEEKS AGO TODAY STILL HAS db CONGESTION. X 3 WEEKS HAS DIFFICULTY FOCUSING AND DIFFICULTY WALKING STRAIGHT. FEELS CONFUSED AND SOMETHING IS WRONG. STATES CHANGED DULOXETINE MEDICATION DOSE RECENTLY. db
[2024-03-17 19:44] VITALS: TEMP 98.6
[2024-03-17 19:48] VITALS: O2SAT 100
[2024-03-17 19:49] VITALS: BP 122/66
--- NOTE | 2024-03-18 12:10 | EKG ---
Test Date: 2024-03-17 Test Time: 16:04:55 Wildlife Enforcement Major: INDERJIT MEASUREMENT RESULTS: Intervals: Rate: 67 SC: 136 QRSD: 98 QT: 356 QTc: 376 [place]: P: 38 SC: 136 QRS: -4 T: 49 INTERPRETIVE STATEMENTS: Normal sinus rhythm Normal ECG Compared to ECG 10/04/2022 11:11:06 No significant changes Electronically Signed On 03-18-24 12:07:45 CDT by Tommy Mahoney
== END 2024-03-17 19:11 | disposition home or self-care (01) ==
LOC: ER 14:25
DX: R53.1 Weakness (principal); E86.0 Dehydration; E11.9 Type 2 diabetes mellitus without complications; I10 Essential (primary) hypertension; E78.00 Pure hypercholesterolemia, unspecified
CPT/HCPCS: 85025; 81001; 80048; 36415; 83735; 80076; 84484; 83880; 70450; 74177; 71045; Q9967; 93005; 96360; 99285; J7040